=== PATIENT | female | born 1965 | race Caucasian/White ===

== ENCOUNTER 2023-01-08 06:38 | Outpatient (OUT) | payer BC, SELFPAY ==
[2023-01-08 06:50] LABS: Basophils Percent Auto 1.1 % (0.2-2.0); Eosinophils Absolute Auto 0.1 10^3/uL (0.0-0.7); Eosinophils Percent Auto 3.1 % (0.9-7.0); Hematocrit 38.6 % (36.0-48.0); Hemoglobin 12.8 g/dL (12.0-16.0); Lymphocytes Absolute Auto 1.7 10^3/uL (1.2-3.8); Lymphocytes Percent Auto 49.4 % (20.5-60.0); Mean Corpuscular HGB Conc 33.2 g/dL (29.9-35.2); Mean Corpuscular Hemoglobin 32.4 pg (26.7-34.0); Mean Corpuscular Volume 97.7 fL (81.0-99.0); Mean Platelet Volume 10.7 fL (9.5-13.5); Monocytes Absolute Auto 0.3 10^3/uL (0.3-0.8); Monocytes Percent Auto 9.1 % (1.7-12.0); Neutrophils Absolute Auto 1.3 10^3/uL (1.4-6.5); Neutrophils Percent Auto 37.3 % (43.0-75.0); Platelet Count 158 10^3/uL (150-450); Red Blood Count 3.95 10^6/uL (4.20-5.40); Red Cell Distribution Width 12.1 % (11.0-15.0); White Blood Count 3.5 10^3/uL (4.0-11.0)
[2023-01-08 08:10] LABS: Alanine Aminotransferase 19 U/L (14-59); Anion Gap 6.9; Aspartate Amino Transferase 16 U/L (15-37); BUN Creatinine Ratio 9.5; Bilirubin Total 0.3 mg/dL (0.2-1.0); Calcium 8.6 mg/dL (8.5-10.1); Carbon Dioxide 32.2 mmol/L (21.0-32.0); Chloride 103 mmol/L (98-107); Estimated GFR (African America >60 (>=60); Estimated GFR (Non-African Ame >60 (>=60); Glucose 90 mg/dL (74-106); Potassium 4.1 mmol/L (3.5-5.1); Sodium 138 mmol/L (136-145)
[2023-01-08 08:11] LABS: Albumin Globulin Ratio 1.2; Albumin Level 3.8 g/dL (3.4-5.0); Alkaline Phosphatase 49 U/L (46-116); Globulin 3.1 g/dL; Total Protein 6.9 g/dL (6.4-8.2)
[2023-01-08 08:12] LABS: Chol HDL Ratio 2.2; Cholesterol 199 mg/dL (<=200); HDL Cholesterol 91 mg/dL (40-60); Triglycerides 49 mg/dL (<=150); VLDL CHOLESTEROL 9.8 mg/dL
== END 2023-01-08 06:39 | disposition home or self-care (01) ==
LOC: LAB 06:38
PROVIDERS: PCP Internal Medicine; Visit Provider Internal Medicine
DX: Z00.00 Encounter for general adult medical examination without abnormal findings (principal)
CPT/HCPCS: 36415; 80053; 80061; 84443; 85025

== ENCOUNTER 2023-05-06 07:16 | Outpatient (OUT) | payer BC, SELFPAY ==
--- NOTE | 2023-05-06 | US_ITS ---
The [address] [address] Patient Name: EULALIA BATES MRN: [id number] date: 1965 Sex: F Assigned Patient Location: [place] Current Patient Location: [place] Accession/Order Number: [id number] Exam Date: 05/06/2023 07:35 Report Date: 05/06/2023 08:32 At the request of: IVANNA HARRIS Procedure: US right upper quadrant EXAM: US right upper quadrant HISTORY: . R53.83; Fatigue , Bilirubin in urine . COMPARISON: None. TECHNIQUE: Grayscale and color imaging was performed FINDINGS: The pancreas appears normal. The liver is normal in size. No masses are noted. Color-flow is noted in the portal and hepatic veins. The gallbladder appears normal. No stones or sludge is identified. Common bile duct is normal measuring 2 mm. Right kidney measures 11.5 x 4.8 x 4.7 cm. Color-flow is noted. No solid renal cortical masses or hydronephrosis is noted. No fluid is noted in the right upper quadrant. US/US right upper quadrant IMPRESSION: Normal ultrasound of the right upper quadrant. Electronically authenticated by: PAULETTE CISSE Date: 05/06/2023 08:32
[2023-05-06 07:36] LABS: Basophils Absolute Auto 0.1 10^3/uL (0.0-0.1); Basophils Percent Auto 1.1 % (0.2-2.0); Eosinophils Absolute Auto 0.1 10^3/uL (0.0-0.7); Eosinophils Percent Auto 1.2 % (0.9-7.0); Hematocrit 40.7 % (36.0-48.0); Hemoglobin 13.2 g/dL (12.0-16.0); Immature Granulocytes Abs Auto 0.01 10^3/uL (0.00-0.03); Immature Granulocytes Pct Auto 0.2 % (0.0-0.5); Lymphocytes Absolute Auto 1.8 10^3/uL (1.2-3.8); Lymphocytes Percent Auto 31.2 % (20.5-60.0); Mean Corpuscular HGB Conc 32.4 g/dL (29.9-35.2); Mean Corpuscular Hemoglobin 32.4 pg (26.7-34.0); Mean Platelet Volume 10.8 fL (9.5-13.5); Monocytes Absolute Auto 0.4 10^3/uL (0.3-0.8); Monocytes Percent Auto 7.8 % (1.7-12.0); Neutrophils Absolute Auto 3.3 10^3/uL (1.4-6.5); Neutrophils Percent Auto 58.5 % (43.0-75.0); Platelet Count 219 10^3/uL (150-450); Red Blood Count 4.07 10^6/uL (4.20-5.40); Red Cell Distribution Width 11.7 % (11.0-15.0); White Blood Count 5.6 10^3/uL (4.0-11.0)
[2023-05-06 08:02] LABS: Alanine Aminotransferase 29 U/L (14-59); Albumin Globulin Ratio 1.2; Albumin Level 4.1 g/dL (3.4-5.0); Alkaline Phosphatase 58 U/L (46-116); Anion Gap 10.4; Aspartate Amino Transferase 17 U/L (15-37); BUN Creatinine Ratio 17.6; Bilirubin Total 0.6 mg/dL (0.2-1.0); Calcium 8.8 mg/dL (8.5-10.1); Carbon Dioxide 32.4 mmol/L (21.0-32.0); Chloride 101 mmol/L (98-107); Estimated GFR (African America >60 (>=60); Estimated GFR (Non-African Ame >60 (>=60); Globulin 3.5 g/dL; Glucose 93 mg/dL (74-106); Potassium 3.8 mmol/L (3.5-5.1); Sodium 140 mmol/L (136-145); Total Protein 7.6 g/dL (6.4-8.2)
[2023-05-07 04:07] LABS: Haptoglobin 117 mg/dL (33-346)
== END 2023-05-06 07:17 | disposition home or self-care (01) ==
LOC: US 07:16
PROVIDERS: PCP Internal Medicine; Visit Provider Internal Medicine
DX: R82.2 Biliuria (principal); R53.83 Other fatigue; R31.21 Asymptomatic microscopic hematuria
CPT/HCPCS: 36415; 76705; 80053; 83010; 85025

== ENCOUNTER 2023-08-04 13:59 | Outpatient (OUT) | payer BC, SELFPAY ==
--- NOTE | 2023-08-04 14:04 | XR_ITS ---
The [address] [address] Patient Name: EULALIA BATES MRN: [id number] date: 1965 Sex: F Assigned Patient Location: [facility] Current Patient Location: [facility] Accession/Order Number: [id number] Exam Date: 08/04/2023 14:15 Report Date: 08/04/2023 15:21 At the request of: IVANNA HARRIS Procedure: XR thoracic spine 3V EXAMINATION: XR thoracic spine 3V HISTORY: Thoracic Back Pain M54.6 COMPARISON: No relevant comparison available. FINDINGS: BONES: Normal alignment with no acute fracture or spondylolisthesis. Mild degenerative spondylosis DISC SPACES: Normal. No significant disc height narrowing, subluxation, or endplate abnormality. PARASPINOUS: Negative. No paraspinous abnormality is seen. OTHER: Negative. XR/XR thoracic spine 3V IMPRESSION: Mild degenerative changes Electronically authenticated by: PAULETTE SILVA Date: 08/04/2023 15:21
== END 2023-08-04 14:00 | disposition home or self-care (01) ==
LOC: RAD 14:00
PROVIDERS: PCP Internal Medicine; Visit Provider Internal Medicine
DX: M54.6 Pain in thoracic spine (principal)
CPT/HCPCS: 72072

== ENCOUNTER 2024-01-11 09:00 | Outpatient (OUT) | payer BC, SELFPAY ==
--- OUTSIDE RECORDS SUMMARY | 2024-01-11 09:09 | XMS_ITS | CCD ---
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 above: Performed By: #### C BC #### [facility] [address] [place] [address] Dr. Ester Jensen MCHC (RBC) [Mass/Vol] 32.1 g/dL Normal 29.9-35.2 [facility] Comment on above: Performed By: #### C BC #### [facility] [address] [place] [address] Dr. Ester Jensen MCV (RBC) [Entitic vol] 99.7 fL Critically high 81.0-99.0 [facility] Comment on above: Performed By: #### C BC #### [facility] [address] [place] [address] Dr. Ester Jensen MONO # 0.3 103/ul Normal 0.3-0.8 [facility] Comment on above: Performed By: #### C BC #### [facility] [address] [place] [address] Dr. Ester Jensen Monocytes/100 WBC (Bld) 9.5 % Normal 1.7-12.0 [facility] Comment on above: Performed By: #### C BC #### [facility] [address] [place] [address] Dr. Ester Jensen NEUT # 1.2 103/ul Critically low 1.4-6.5 [facility] Comment on above: Performed By: #### C BC #### [facility] [address] [place] [address] Dr. Ester Jensen Neutrophils/100 WBC (Bld) 35.3 % Critically low 43.0-75.0 [facility] Comment on above: Performed By: #### C BC #### [facility] [address] [place] [address] Dr. Ester Jensen Platelet mean volume (Bld) [Entitic vol] 11.0 fL Normal 9.5-13.5 [facility] Comment on above: Performed By: #### C BC #### [facility] [address] [place] [address] Dr. Ester Jensen PLT 165 103/ul Normal 150-450 [facility] Comment on above: Performed By: #### C BC #### [facility] [address] [place] [address] Dr. Ester Jensen RBC 3.90 106/ul Critically low 4.20-5.[address] [facility] Comment on above: Performed By: #### C BC #### [facility] [address] [place] [address] Dr. Ester Jensen WBC 3.3 103/ul Critically low 4.0-11.0 [facility] Comment on above: Performed By: #### C BC #### [facility] [address] [place] [address] Dr. Ester Jensen VIT B12 AND FOLATEon 022 Cobalamin (Vitamin B12) [Mass/Vol] 1293.0 pg/mL Critically high 193.0-986.0 [facility] Comment on above: Performed By: #### C BC #### [facility] [address] [place] [address] Dr. Ester Jensen FOLATE 21.40 ng/mL Normal 8.60-58.90 [facility] Comment on above: Performed By: #### C BC #### [facility] [address] [place] [address] Dr. Ester Jensen CBC AUTO DIFFon 10-03-2021 BASO # 0.0 103/ul Normal 0.0-0.1 [facility] Comment on above: Performed By: #### C BC #### [facility] [address] [place] [address] Dr. Ester Jensen Basophils/100 WBC (Bld) 1.4 % Normal 0.2-2.0 [facility] Comment on above: Performed By: #### C BC #### [facility] [address] [place] [address] Dr. Ester Jensen EO # 0.1 103/ul Normal 0.0-0.7 [facility] Comment on above: Performed By: #### C BC #### [facility] [address] [place] [address] Dr. Ester Jensen Eosinophils/100 WBC (Bld) 2.0 % Normal 0.9-7.0 [facility] Comment on above: Performed By: #### C BC #### [facility] [address] [place] [address] Dr. Ester Jensen Erythrocyte distribution width (RBC) [Ratio] 11.9 % Normal 11.0-15.0 [facility] Comment on above: Performed By: #### C BC #### [facility] [address] [place] [address] Dr. Ester Jensen Hematocrit (Bld) [Volume fraction] 39.9 % Normal 36.0-48.0 [facility] Comment on above: Performed By: #### C BC #### [facility] [address] [place] [address] Dr. Ester Jensen Hemoglobin (Bld) [Mass/Vol] 13.0 g/dL Normal 12.0-16.0 [facility] Comment on above: Performed By: #### C BC #### [facility] [address] [place] [address] Dr. Ester Jensen IG # 0.01 10e3/ul Normal 0.00-0.03 [facility] Comment on above: Performed By: #### C BC #### [facility] [address] [place] [address] Dr. Ester Jensen IG % 0.3 % Normal 0.0-0.5 [facility] Comment on above: Performed By: #### C BC #### [facility] [address] [place] [address] Dr. Ester Jensen LYMPH # 1.1 103/ul Critically low 1.2-3.8 [facility] Comment on above: Performed By: #### C BC #### [facility] [address] [place] [address] Dr. Ester Jensen Lymphocytes/100 WBC (Bld) 37.2 % Normal 20.5-60.0 [facility] Comment on above: Performed By: #### C BC #### [facility] [address] [place] [address] Dr. Ester Jensen MANUAL DIFF REQ NO Normal [facility] Comment on above: Performed By: #### C BC #### [facility] [address] [place] [address] Dr. Ester Jensen MCH (RBC) [Entitic mass] 32.9 pg Normal 26.7-34.0 [facility] Comment on above: Performed By: #### C BC #### [facility] [address] [place] [address] Dr. Ester Jensen MCHC (RBC) [Mass/Vol] 32.6 g/dL Normal 29.9-35.2 [facility] Comment on above: Performed By: #### C BC #### [facility] [address] [place] [address] Dr. Ester Jensen MCV (RBC) [Entitic vol] 101.0 fL Critically high 81.0-99.0 [facility] Comment on above: Performed By: #### C BC #### [facility] [address] [place] [address] Dr. Ester Jensen MONO # 0.4 103/ul Normal 0.3-0.8 [facility] Comment on above: Performed By: #### C BC #### [facility] [address] [place] [address] Dr. Ester Jensen Monocytes/100 WBC (Bld) 12.5 % Critically high 1.7-12.0 [facility] Comment on above: Performed By: #### C BC #### [facility] [address] [place] [address] Dr. Ester Jensen NEUT # 1.4 103/ul Normal 1.4-6.5 [facility] Comment on above: Performed By: #### C BC #### [facility] [address] [place] [address] Dr. Ester Jensen Neutrophils/100 WBC (Bld) 46.6 % Normal 43.0-75.0 [facility] Comment on above: Performed By: #### C BC #### [facility] [address] [place] [address] Dr. Ester Jensen Platelet mean volume (Bld) [Entitic vol] 10.9 fL Normal 9.5-13.5 [facility] Comment on above: Performed By: #### C BC #### [facility] [address] [place] [address] Dr. Ester Jensen PLT 157 103/ul Normal 150-450 [facility] Comment on above: Performed By: #### C BC #### [facility] [address] [place] [address] Dr. Ester Jensen RBC 3.95 106/ul Critically low 4.20-5.[address] [facility] Comment on above: Performed By: #### C BC #### [facility] [address] [address] [address] Ester Jensen WBC 3.0 103/ul Critically low 4.0-11.0 [facility] Comment on above: Performed By: #### C BC #### [facility] [address] [address] [address] Ester Jensen LIPID PROFILEon 10-03-2021 CHOL-HDL RATIO NORM SEE BELOW Normal [facility] Comment on above: Result Comment: 3.3 - 4.4 LOW RISK 4.4 - 7.1 AVERAGE RISK 7.1 - 11.0 MODERATE RISK >11.0 HIGH RISK Performed By: #### B MP, LIPID, TSH #### [facility] [address] [address] [address] Ester Jensen Cholesterol [Mass/Vol] 201 mg/dL Critically high <=200 [facility] Comment on above: Performed By: #### B MP, LIPID, TSH #### [facility] [address] [address] [address] Ester Jensen Cholesterol in HDL [Mass/Vol] 86 mg/dL Critically high 40-60 [facility] Comment on above: Performed By: #### B MP, LIPID, TSH #### [facility] [address] [address] [address] Ester Jensen Cholesterol in LDL [Mass/Vol] 106.6 mg/dL Normal [facility] Comment on above: Performed By: #### B MP, LIPID, TSH #### [facility] [address] [address] [address] Ester Jensen Cholesterol.total/Ch olesterol in HDL [Mass ratio] 2.3 {ratio} Normal [facility] Comment on above: Performed By: #### B MP, LIPID, TSH #### [facility] [address] [address] [address] Ester Jensen HDL NORMAL > or = 60 mg/dl - LOW CARDIOVASCULAR RISK <40 mg/dl - HIGH CARDIOVASCULAR RISK Normal [facility] Comment on above: Performed By: #### B MP, LIPID, TSH #### [facility] [address] [address] [address] Ester Jensen LDL CALC NORMAL SEE BELOW Normal [facility] Comment on above: Result Comment: <100 mg/dl OPTIMAL 100 - 129 mg/dl NEAR OR ABOVE OPTIMAL 130 - 159 mg/dl BORDERLINE HIGH 160 - 189 mg/dl HIGH >190 mg/dl VERY HIGH Performed By: #### B MP, LIPID, TSH #### [facility] [address] [address] [address] Ester Jensen Triglyceride [Mass/Vol] 42 mg/dL Normal <=150 [facility] Comment on above: Performed By: #### B MP, LIPID, TSH #### [facility] [address] [place] [address] Dr. Ester Jensen VLDL CALC 8.4 mg/dL Normal [facility] Comment on above: Performed By: #### B MP, LIPID, TSH #### [facility] [address] [place] [address] Dr. Ester Jensen PROF CHEM 8 (BAS METB)on Anion gap [Moles/Vol] 10.5 mmol/L Normal [facility] Comment on above: Performed By: #### B MP, LIPID, TSH #### [facility] [address] [place] [address] Dr. Ester Jensen Calcium [Mass/Vol] 8.5 mg/dL Normal 8.5-10.1 [facility] Comment on above: Performed By: #### B MP, LIPID, TSH #### [facility] [address] [place] [address] Dr. Ester Jensen Chloride [Moles/Vol] 102 mmol/L Normal 98-107 [facility] Comment on above: Performed By: #### B MP, LIPID, TSH #### [facility] [address] [address] [address] Ester Jensen CO2 [Moles/Vol] 29.5 mmol/L Normal 21.0-32.0 [facility] Comment on above: Performed By: #### B MP, LIPID, TSH #### [facility] [address] [address] [address] Ester Jensen Creatinine [Mass/Vol] 0.82 mg/dL Normal 0.55-1.02 [facility] Comment on above: Performed By: #### B MP, LIPID, TSH #### [facility] [address] [address] [address] Ester Jensen EGFR-AF TRINIDADIAN >60 Normal >=60 [facility] Comment on above: Performed By: #### B MP, LIPID, TSH #### [facility] [address] [address] [address] Ester Jensen EGFR-NON AF TRINIDADIAN >60 Normal >=60 [facility] Comment on above: Performed By: #### B MP, LIPID, TSH #### [facility] [address] [address] [address] Ester Jensen Glucose [Mass/Vol] 92 mg/dL Normal 74-106 [facility] Comment on above: Performed By: #### B MP, LIPID, TSH #### [facility] [address] [address] [address] Ester Jensen Potassium [Moles/Vol] 4.0 mmol/L Normal 3.5-5.1 [facility] Comment on above: Performed By: #### B MP, LIPID, TSH #### [facility] [address] [address] [address] Ester Jensen Sodium [Moles/Vol] 138 mmol/L Normal 136-145 [facility] Comment on above: Performed By: #### B MP, LIPID, TSH #### [facility] [address] [address] [address] Ester Jensen Urea nitrogen [Mass/Vol] 11.0 mg/dL Normal 7.0-18.0 [facility] Comment on above: Performed By: #### B MP, LIPID, TSH #### [facility] [address] [address] [address] Ester Jensen Urea nitrogen/Creatinine [Mass ratio] 13.4 mg/mg Normal [facility] Comment on above: Performed By: #### B MP, LIPID, TSH #### [facility] [address] [place] [address] Dr. Ester Jensen TSHon 10-03-2021 TSH 1.803 uIU/mL Normal 0.358-3.740 [facility] Comment on above: Performed By: #### B MP, LIPID, TSH #### [facility] [address] [place] [address] Dr. Ester Jensen TSH RANGE SEE BELOW Normal [facility] Comment on above: Result Comment: <0.3 4 UIU/ml HYPERTHYROID 0.34-5.60 UIU/ml EUTHYROID >5.60 UIU/ml HYPOTHYROID Performed By: #### B MP, LIPID, TSH #### [facility] [address] [place] [address] Dr. Ester Jnesen CBC AUTO DIFFon 07-28-2021 BASO # 0.0 103/ul Normal 0.0-0.1 [facility] Comment on above: Performed By: #### C BC #### [facility] [address] [place] [address] Dr. Ester Jensen Basophils/100 WBC (Bld) 1.1 % Normal 0.2-2.0 [facility] Comment on above: Performed By: #### C BC #### [facility] [address] [place] [address] Dr. Ester Jensen EO # 0.1 103/ul Normal 0.0-0.7 [facility] Comment on above: Performed By: #### C BC #### [facility] [address] [place] [address] Dr. Ester Jensen Eosinophils/100 WBC (Bld) 2.5 % Normal 0.9-7.0 [facility] Comment on above: Performed By: #### C BC #### [facility] [address] [place] [address] Dr. Ester Jensen Erythrocyte distribution width (RBC) [Ratio] 12.2 % Normal 11.0-15.0 [facility] Comment on above: Performed By: #### C BC #### [facility] [address] [place] [address] Dr. Ester Jensen Hematocrit (Bld) [Volume fraction] 38.7 % Normal 36.0-48.0 [facility] Comment on above: Performed By: #### C BC #### [facility] [address] [place] [address] Dr. Ester Jensen Hemoglobin (Bld) [Mass/Vol] 12.6 g/dL Normal 12.0-16.0 [facility] Comment on above: Performed By: #### C BC #### [facility] [address] [place] [address] Dr. Ester Jensen IG # 0.01 10e3/ul Normal 0.00-0.03 [facility] Comment on above: Performed By: #### C BC #### [facility] [address] [place] [address] Dr. Ester Jensen IG % 0.3 % Normal 0.0-0.5 [facility] Comment on above: Performed By: #### C BC #### [facility] [address] [place] [address] Dr. Ester Jensen LYMPH # 1.6 103/ul Normal 1.2-3.8 [facility] Comment on above: Performed By: #### C BC #### [facility] [address] [place] [address] Dr. Ester Jensen Lymphocytes/100 WBC (Bld) 43.6 % Normal 20.5-60.0 [facility] Comment on above: Performed By: #### C BC #### [facility] [address] [place] [address] Dr. Ester Jensen MANUAL DIFF REQ NO Normal [facility] Comment on above: Performed By: #### C BC #### [facility] [address] [place] [address] Dr. Ester Jensen MCH (RBC) [Entitic mass] 32.8 pg Normal 26.7-34.0 [facility] Comment on above: Performed By: #### C BC #### [facility] [address] [place] [address] Dr. Ester Jensen MCHC (RBC) [Mass/Vol] 32.6 g/dL Normal 29.9-35.2 [facility] Comment on above: Performed By: #### C BC #### [facility] [address] [place] [address] Dr. Ester Jensen MCV (RBC) [Entitic vol] 100.8 fL Critically high 81.0-99.0 [facility] Comment on above: Performed By: #### C BC #### [facility] [address] [place] [address] Dr. Ester Jensen MONO # 0.3 103/ul Normal 0.3-0.8 [facility] Comment on above: Performed By: #### C BC #### [facility] [address] [place] [address] Dr. Ester Jensen Monocytes/100 WBC (Bld) 9.3 % Normal 1.7-12.0 [facility] Comment on above: Performed By: #### C BC #### [facility] [address] [place] [address] Dr. Ester Jensen NEUT # 1.6 103/ul Normal 1.4-6.5 [facility] Comment on above: Performed By: #### C BC #### [facility] [address] [place] [address] Dr. Ester Jensen Neutrophils/100 WBC (Bld) 43.2 % Normal 43.0-75.0 [facility] Comment on above: Performed By: #### C BC #### [facility] [address] [place] [address] Dr. Ester Jensen Platelet mean volume (Bld) [Entitic vol] 11.3 fL Normal 9.5-13.5 [facility] Comment on above: Performed By: #### C BC #### [facility] [address] [place] [address] Dr. Ester Jensen PLT 153 103/ul Normal 150-450 [facility] Comment on above: Performed By: #### C BC #### [facility] [address] [place] [address] Dr. Ester Jensen RBC 3.84 106/ul Critically low 4.20-5.[address] [facility] Comment on above: Performed By: #### C BC #### [facility] [address] [place], [place] [address] Dr. Ester Jensen WBC 3.7 103/ul Critically low 4.0-11.0 [facility] Comment on above: Performed By: #### C BC #### [facility] [address] [place], [place] [address] Dr. Ester Jensen TRANSGLUTAMINASE IGAon 05-10 t-Transglutaminase (tTG) IgA <2 Normal 0-3 [facility] Comment on above: Result Comment: Nega tive 0 - 3 Weak Positive 4 - 10 Positive >10 . Tissue Transglutaminase (tTG) has been identified as the endomysial antigen. Studies have demonstr- ated that endomysial IgA antibodies have over 99% specificity for gluten sensitive enteropathy. Performed By: #### T RANIGA #### [facility] [address] [address] [address] Ester Jensen TRANSGLUTAMINASE IGGon 05-10 t-Transglutaminase (tTG) IgG 3 U/mL Normal 0-5 [facility] Comment on above: Result Comment: Nega tive 0 - 5 Weak Positive 6 - 9 Positive >9 Performed By: #### C BC #### [facility] [address] [place], [place] [address] Dr. Ester Jensen NM HEPATOBILIARY SCAN W EFon 04-18-2021 NM HEPATOBILIARY SCAN W EF EXAMINATION: NM HEPATOBILIARY SCAN W EF HISTORY: Right upper quadrant pain COMPARISON: No relevant comparison available. TECHNIQUE: Radionuclide hepatobiliary imaging was performed after intravenous injection of 5.0 mCi technetium 99m mebrofenin with sequential acquisitions every 1 minute for one hour. Hepatobiliary imaging with gallbladder ejection fraction analysis was then performed with sequential imaging every 1 minute for 60 minutes. 8 ounces of by mouth Ensure plus FINDINGS: LIVER: Normal, prompt and uniform radiotracer uptake and clearing. BILIARY DUCTS: Normal radioisotopic biliary excretion. GALLBLADDER: Normal with no evidence of cystic duct obstruction. INTESTINE: Normal with no evidence of common biliary ductal obstruction. EJECTION FRACTION: % within 60 minutes. (Normal EF > 38%). OTHER: Negative. IMPRESSION: Normal hepatobiliary scan and pharmacologic ejection fraction Electronically authenticated by: PAULETTE SILVA Date: 2021-04-18 17:13 Normal [facility] CBC W MANUAL DIFFon 04-08-20 21 ATYPICAL LYMPH # 0.08 103/ul Normal [facility] Comment on above: Performed By: #### C VEL #### [facility] [address] [place] [address] Dr. Ester Jensen ATYPICAL LYMPH % 3 % Normal [facility] Comment on above: Performed By: #### C BCMAN #### [facility] [address] [address] [address] Ester Jensen BAND # Normal 0.0-0.3 [facility] Comment on above: Performed By: #### C VEL #### [facility] [address] [place] [address] Dr. Ester Jensen BAND % Normal 0-5 [facility] Comment on above: Performed By: #### C VEL #### [facility] [address] [address] [address] Ester Jensen BASOM # 0.00 103/ul Normal 0.00-0.10 [facility] Comment on above: Performed By: #### C VEL #### [facility] [address] [address] [address] Ester Jensen BASOM % 0.0 % Critically low 0.2-2.0 [facility] Comment on above: Performed By: #### C VEL #### [facility] [address] [address] [address] Ester Jensen BLAST # Normal [facility] Comment on above: Performed By: #### C VEL #### [facility] [address] [address] [address] Ester Jensen BLAST % Normal [facility] Comment on above: Performed By: #### C VEL #### [facility] [address] [place] [address] Dr. Ester Jensen CORRECTED WBC Normal 4.0-11.0 [facility] Comment on above: Performed By: #### C VEL #### [facility] [address] [place] [address] Dr. Ester Jensen EOS # 0.05 103/ul Normal 0.00-0.70 [facility] Comment on above: Performed By: #### C VEL #### [facility] [address] [place] [address] Dr. Ester Jensen EOS% 2.0 % Normal 0.9-7.0 [facility] Comment on above: Performed By: #### C VEL #### [facility] [address] [place] [address] Dr. Ester Jensen HCT 40.2 % Normal 36.0-48.0 [facility] Comment on above: Performed By: #### C VEL #### [facility] [address] [place] [address] Dr. Ester Jensen HGB 13.0 g/dl Normal 12.0-16.0 [facility] Comment on above: Performed By: #### C VLE #### [facility] [address] [place] [address] Dr. Ester Jensen LYMPHM # 1.20 103/ul Normal 1.20-3.80 [facility] Comment on above: Performed By: #### C VEL #### [facility] [address] [place] [address] Dr. Ester Jnesen LYMPHM% 46.0 % Normal 20.5-60.0 [facility] Comment on above: Performed By: #### C VEL #### [facility] [address] [place] [address] Dr. Ester Jensen MCH 31.8 pg Normal 26.7-34.0 [facility] Comment on above: Performed By: #### C VEL #### [facility] [address] [place] [address] Dr. Ester Jensen MCHC 32.3 g/dl Normal 29.9-35.2 [facility] Comment on above: Performed By: #### C VEL #### [facility] [address] [place] [address] Dr. Ester Jensen MCV 98.3 fL Normal 81.0-99.0 [facility] Comment on above: Performed By: #### C BCMAN #### [facility] [address] [place] [address] Dr. Ester Jensen METAMYELOCYTE # Normal [facility] Comment on above: Performed By: #### C BCBRENDAN #### [facility] [address] [place] [address] Dr. Ester Jensen METAMYELOCYTE % Normal [facility] Comment on above: Performed By: #### C BCMAN #### [facility] [address] [place] [address] Dr. Ester Jensen MONOM# 0.31 103/ul Normal 0.30-0.80 [facility] Comment on above: Performed By: #### C VEL #### [facility] [address] [place] [address] Dr. Ester Jensen MONOM% 12.0 % Normal 1.7-12.0 [facility] Comment on above: Performed By: #### C VEL #### [facility] [address] [place] [address] Dr. Ester Jensen MPV 11.2 fL Normal 9.5-13.5 [facility] Comment on above: Performed By: #### C VEL #### [facility] [address] [place] [address] Dr. Ester Jensen MYELOCYTE # Normal [facility] Comment on above: Performed By: #### C VEL #### [facility] [address] [place] [address] Dr. Ester Jensen MYELOCYTE % Normal [facility] Comment on above: Performed By: #### C BCBRENDAN #### [facility] [address] [place] [address] Dr. Ester Jensen NRBC Normal [facility] Comment on above: Performed By: #### C BCBRENDAN #### [facility] [address] [place] [address] Dr. Ester Jensen PLT 161 103/ul Normal 150-450 [facility] Comment on above: Performed By: #### C BCBRENDAN #### [facility] [address] [place], [place] [address] Dr. Ester Jensen RBC 4.09 106/ul Critically low 4.20-5.[address] [facility] Comment on above: Performed By: #### C VEL #### [facility] [address] [place], [place] [address] Dr. Ester Jensen RDW 11.9 % Normal 11.0-15.0 [facility] Comment on above: Performed By: #### C VEL #### [facility] [address] [place], [place] [address] Dr. Ester Jensen SEG # 0.96 103/ul Critically low 1.40-6.[address] [facility] Comment on above: Performed By: #### C VEL #### [facility] [address] [address] [address] Ester Jensen SEG % 37.0 % Critically low 43.0-75.0 [facility] Comment on above: Performed By: #### C VEL #### [facility] [id number] Ester Jensen WBC 2.6 103/ul Critically low 4.0-11.0 [facility] Comment on above: Performed By: #### C VEL #### [facility] [id number] Ester Jensen PERIPHERAL SMEARon Pathologist Cyto stain Nom (Cvx/Vag) [ID] DR. USHA VALLECILLO Normal [facility] Comment on above: Result Comment: REVI EW OF SMEAR REVEALS NORMAL RBCS AND PLATELETS. THERE IS NEUTROPENIA WITH OCCASIONAL NEUTROPHILS WITH MONOLOBULATED NEUCLEI WITH HYPOGRANUALARITY. NO IMMATUE BLASTS ARE SEEN ARE FOUND TO BE REACTIVE. NEUTROPENIA CAN BE SEEN IN THE SETTING OF DRUG MEDATED INFECTIOUIS PROCESS CYCLE NEUTROPENIA OR AN IMMUNE MEDIATED PROCESS SUCH IN COLLEGEN UNICELLULAR DISORDERS. CLINICAL CORRELATION IS RECOMMENDED CPT 89869 Performed By: #### P ERSMR #### [facility] [address] [address] [address] Ester Jensen VITAMIN B12on 04-08-2021 Cobalamin (Vitamin B12) [Mass/Vol] 448.0 pg/mL Normal 239.0-931.0 [facility] Comment on above: Performed By: #### V ITB12 #### [facility] [id number] Ester Jensen Vital Signs Date Time Vital Sign Value Performing Clinician Facility 01-11-2024 08:37-0400 Body height 170.18 cm [facility] 01-11-2024 08:37-0400 Body mass index (BMI) [Ratio] 19.8 kg/m2 [facility] 01-11-2024 08:37-0400 Body weight 57.37 kg [facility] 01-11-2024 08:37-0400 Diastolic blood pressure 71 mm[Hg] [facility] 01-11-2024 08:37-0400 Heart rate 70 /min [facility] 01-11-2024 08:37-0400 Respiratory rate 12 /min [facility] 01-11-2024 08:37-0400 Systolic blood pressure 100 mm[Hg] [facility] 05-07-2023 10:14-0500 Body height 170.18 cm DO Paulo Ball Work Phone: [facility] 05-07-2023 10:14-0500 Body weight 56.69 kg DO Paulo Ball Work Phone: [facility] 04-21-2023 11:15-0500 Body height 171.45 cm Paulo Ball Other [facility] Other 04-21-2023 11:15-0500 Body mass index (BMI) [Ratio] 19.75 kg/m2 Paulo Ball Other [facility] Other 04-21-2023 11:15-0500 Body weight 58.06 kg Paulo Ball Other [facility] Other 04-21-2023 11:15-0500 Diastolic blood pressure 89 mm[Hg] Paulo Ball Other [facility] Other 04-21-2023 11:15-0500 Respiratory rate 12 /min Paulo Ball Other [facility] Other 04-21-2023 11:15-0500 Systolic blood pressure 145 mm[Hg] Paulo Ball Other [facility] Other 01-07-2023 11:30-0400 Body height 171.45 cm Paulo Ball Other [facility] Other 01-07-2023 11:30-0400 Body mass index (BMI) [Ratio] 19.44 kg/m2 Paulo Ball Other [facility] Other 01-07-2023 11:30-0400 Body weight 57.15 kg Paulo Ball Other [facility] Other 01-07-2023 11:30-0400 Diastolic blood pressure 78 mm[Hg] Paulo Ball Other [facility] Other 01-07-2023 11:30-0400 Systolic blood pressure 115 mm[Hg] Paulo Ball Other [facility] Other 05-04-2022 14:43-0500 Body height 170.18 cm DO Paulo Ball Work Phone: [facility] 05-04-2022 14:43-0500 Body weight 57.6 kg DO Paulo Ball Work Phone: [facility] 04-13-2022 11:30-0500 Body height 171.45 cm Rafi Amador Other [facility] Other 04-13-2022 11:30-0500 Body mass index (BMI) [Ratio] 19.75 kg/m2 Rafi Amador Other [facility] Other 04-13-2022 11:30-0500 Body weight 58.06 kg Rafi Amador Other [facility] Other 04-13-2022 11:30-0500 Diastolic blood pressure 80 mm[Hg] Rafi Amador Other [facility] Other 04-13-2022 11:30-0500 Systolic blood pressure 114 mm[Hg] Rafi Amador Other [facility] Other 11-10-2021 09:31-0400 Body height 167.6 cm Carol Wills MD Work Phone: [facility] 11-10-2021 09:31-0400 Body temperature 97.59 [degF] Carol Wills MD Work Phone: [facility] 11-10-2021 09:31-0400 Body weight 56.52 kg Carol Wills MD Work Phone: [facility] 11-10-2021 09:31-0400 Diastolic blood pressure 76 mm[Hg] Carol Wills MD Work Phone: [facility] 11-10-2021 09:31-0400 Heart rate 77 /min Carol Wills MD Work Phone: [facility] 11-10-2021 09:31-0400 Respiratory rate 16 /min Carol Wills MD Work Phone: [facility] 11-10-2021 09:31-0400 SaO2% (BldA) [Mass fraction] 100 % Carol Wills MD Work Phone: [facility] 11-10-2021 09:31-0400 Systolic blood pressure 117 mm[Hg] Carol Wills MD Work Phone: [facility] 04-22-2021 13:45-0500 Body height 171.45 cm Rafi Amador Other [facility] Other 04-22-2021 13:45-0500 Body mass index (BMI) [Ratio] 19.6 kg/m2 Rafi Amador Other [facility] Other 04-22-2021 13:45-0500 Body weight 57.61 kg Rafi Amador Other [facility] Other Encounters Encounter Date Encounter Type Care Provider Facility Start: 01-11-2024 End: 01-11-[address] [facility] Work Phone: Start: 01-11-2024 End: 01-11-2024 Encounter for general adult medical examination without abnormal findings [facility] Start: 01-11-2024 End: 01-11-2024 Patient encounter procedure [facility] Work Phone: Start: 12-06-2023 End: 12-06-2023 ambulatory SHELBY CRUZ Not Available Start: 08-20-2023 End: 08-20-2023 ambulatory RISHI MC Not Available Start: 08-03-2023 End: 08-03-2023 ambulatory RISHI [facility] Not Available Start: 06-28-2023 End: 06-28-2023 ambulatory PALMA DAMON Not Available Start: 06-15-2023 End: 06-15-2023 ambulatory Paulo Lawrence Other [facility] Other Start: 06-15-2023 Office outpatient visit 15 minutes Paulo Lawrence [facility] Start: 06-04-2023 End: 06-04-2023 ambulatory PALMA DAMON Not Available Start: 06-02-2023 End: 06-02-2023 ambulatory PALMA DAMON Not Available Start: 05-10-2023 End: 05-10-2023 ambulatory Paulo Lawrence Other [facility] Other Start: 05-10-2023 Telephone encounter Paulo Ball [facility] Start: 05-07-2023 End: 05-07-2023 ambulatory Paulo Lawrence Facility:[facility] Start: 05-07-2023 End: 05-07-2023 ambulatory DO Paulo Lawrence Work Phone: [facility] Work Phone: Start: 05-07-2023 End: 05-07-2023 Patient encounter procedure DO Paulo Lawrence Work Phone: [facility] [place] Work Phone: Start: 05-05-2023 End: 05-05-2023 ambulatory Paulo Lawrence Other [facility] Other Start: 05-05-2023 Office outpatient visit 15 minutes Paulo Lawrence [facility] Start: 04-30-2023 End: 04-30-2023 ambulatory PALMA DAMON Not Available Start: 04-29-2023 End: 04-29-2023 ambulatory Paulo Lawrence Other [facility] Other Start: 04-29-2023 Nursing evaluation o f patient and report Paulo Lawrence [facility] Start: 04-21-2023 End: 04-21-2023 ambulatory Paulo Lawrence Other [facility] Other Start: 04-21-2023 Office outpatient visit 15 minutes Paulo Lawrence [facility] Start: 04-21-2023 Telephone encounter Paulo Lawrence [facility] Start: 03-11-2023 End: 03-11-2023 ambulatory Paulo Ball Other [facility] Other Start: 03-11-2023 Telephone encounter Paulo Lawrence [facility] Start: 02-23-2023 End: 02-23-2023 ambulatory Paulo Howard Other [facility] Other Start: 02-23-2023 Telephone encounter Paulo Lawrence [facility] Start: 01-08-2023 End: 01-08-2023 ambulatory Paulo Ball Other [facility] Other Start: 01-08-2023 Telephone encounter Paulo Lawrence JACLYN [facility] Start: 01-07-2023 End: 01-07-2023 ambulatory Paulo Lawrence Other [facility] Other Start: 01-07-2023 Encounter for genera l adult medical examination without abnormal findings Paulo Lawrence [facility] Start: 01-07-2023 Periodic preventive med est patient 40-64yrs Paulo Lawrnece [facility] Start: 11-19-2022 End: 11-19-2022 ambulatory PAULO LAWRENCE Facility:[facility] Start: 08-04-2022 End: 08-04-2022 ambulatory Paulo Lawrence Other [facility] Other Start: 08-04-2022 Telephone encounter Paulo Lawrence JACLYN Claribel [facility] Start: 05-04-2022 End: 05-04-2022 ambulatory DO Paulo Lawrence Work Phone: [facility] Work Phone: Start: 05-04-2022 End: 05-04-2022 Patient encounter procedure DO Paulo Lawrence Work Phone: [facility] [place] Start: 04-13-2022 End: 04-13-2022 ambulatory Rafi Amador Other [facility] Other Start: 04-13-2022 Office outpatient visit 15 minutes Rafi Amador [facility] Start: 01-15-2022 End: 01-16-[address] PAULO LAWRENCE Facility: Start: 11-10-2021 End: 11-10-2021 ambulatory Carol Wills MD Work Phone: Hematology/Oncology Comment on above: Malignant neoplasm o f upper-outer quadrant of right breast in female, estrogen receptor positive (HCC) (Primary Dx); Ductal carcinoma in situ (DCIS) of left breast Start: 11-10-2021 End: 11-10-2021 Patient encounter procedure aCrol Wills MD Work Phone: [place] Start: 10-08-2021 Encounter for genera l adult medical examination without abnormal findings DR PAULO LAWRENCE [facility] Start: 10-03-2021 End: 10-04-[address] PAULO LAWRENCE Facility:[facility] Start: 10-03-2021 End: 10-04-2021 Encounter for general adult medical examination without abnormal findings DR PAULO LAWRENCE Facility:[facility] Start: 07-31-2021 Adult health examination Paulo Lawrence Other [facility] Other Start: 07-28-2021 End: 07-29-[address] PAULO LAWRENCE Facility:[facility] Start: 2021 End: 05-10-[address] Tessie AMADOR Facility:[facility] Start: 05-08-2021 End: 05-08-2021 ambulatory Rafi Amador Other [facility] Other Start: 05-08-2021 Telephone encounter Rafi lópez [facility] Start: 04-22-2021 End: 04-22-2021 ambulatory Rafi Amador Other [facility] Other Start: 04-22-2021 Office outpatient visit 15 minutes Rafi Amador [facility] Start: 04-18-2021 End: 04-19-[address] PAULO LAWRENCE Facility:[facility] Start: 04-08-2021 End: 04-09-[address] PAULO LAWRENCE Facility:[facility] Start: 09-16-2018 End: 09-17-2018 Patient encounter procedure DEFAULT PHYSICIAN Facility:[facility] Procedures Date Procedure Procedure Detail Performing Clinician Start: 05-07-2023 MRI of bilateral loretta asts with contrast DO Paulo Lawrence Work Phone: Start: 05-04-2022 MRI of bilateral loretta asts with contrast DO Paulo Lawrence Work Phone: Start: 11-10-2021 Adult depression screening assessment Carol Wills MD Work Phone: Start: 04-26-2018 Screening for malign ant neoplasm of colon Paulo Lawrence Other Plan of Treatment Date Care Activity Detail Author Start: 11-09-2023 DIABETES SCREEN DIABETES SCREEN [facility] Start: 11-10-2022 Adult depression screening assessment DEPRESSION SCREENING [facility] Start: 08-17-2021 COVID-19 VACCINE (4 - Booster for Pfizer series) COVID-19 VACCINE (4 - Booster for Pfizer series) [facility] Start: 2010 COLOGUARD (FIT-DNA) COLOGUARD (FIT-D NA) [facility] Start: 2010 Colonoscopy COLONOSCOPY [facility] Start: 2010 COLORECTAL CANCER SCREENING COLORECTAL CANCER SCREENING [facility] Start: [address] COLONOGRAPHY [facility] Start: 2010 FECAL OCCULT BLOOD FECAL OCCULT BLOO D [facility] Start: 2010 LIPID SCREEN LIPID SCREEN [facility] Start: 2010 SIGMOIDOSCOPY SIGMOIDOSCOPY [facility] Start: 2005 Mammography MAMMOGRAM [facility] Start: 1995 HPV TESTING HPV TESTING [facility] Start: 1986 PAP TESTING PAP TESTING [facility] Start: 1984 Urine microalbumin profile DTAP,TDAP,TD (1 - Tdap) [facility] Start: 1983 HEPATITIS C SCREENING HEPATITIS C SC LUISNING [facility] Start: 1983 HIV SCREENING HIV SCREENING [facility] Start: 1971 PNEUMOCOCCAL (1 - PCV) PNEUMOCOCCAL (1 - PCV) [facility] metabo lic 2000 panel - Serum or Plasma [facility] End: 12-10-2022 Diagnostic mammography computer-aided detcj bi RADHA DIAGNOSTIC BILAT Radiology Routine Malignant neoplasm of upper-outer quadrant of right breast in female, estrogen receptor positive (HCC) 1 Occurrences starting 11/10/2021 until 12/10/2022 [facility] Work Phone: Comment on above: 1 Occurrences starti ng 11/10/2021 until 12/10/2022 End: 12-10-2022 Mri breast without&with contrast w/cad bilateral MRI BREAST WO/W IVCON BILAT Radiology Routine Malignant neoplasm of upper-outer quadrant of right breast in female, estrogen receptor positive (HCC) 1 Occurrences starting 11/10/2021 until 12/10/2022 [facility] Work Phone: Comment on above: 1 Occurrences starti ng 11/10/2021 until 12/10/2022 [facility] Immunizations Immunization Date Immunization Notes Care Provider Odin velasco 05-10-2022 COVID-19 Pfizer (Pediatric) Paulo Lawrence Other [facility] 04-19-2021 COVID-19 mRNA, Comirnaty (Pfizer) DO Paulo Lawrence Work Phone: [facility] 03-09-2021 influenza virus vaccine, split virus (incl. purified surface antigen) Paulo Lawrence Other [facility] Other 03-09-2021 influenza virus vaccine, unspecified formulation [facility] 08-21-2020 COVID-19 vaccine, ag e 12+ yr (PFIZER-BIONTECH - PURPLE TOP) Carol Wills MD Work Phone: [facility] 07-31-2020 COVID-19 vaccine, ag e 12+ yr (PFIZER-BIONTECH - PURPLE TOP) Carol Wills MD Work Phone: [facility] 03-08-2020 influenza virus vaccine, split virus (incl. purified surface antigen) Paulo Lawrence Other [facility] Other 03-08-2020 influenza virus vaccine, unspecified formulation [facility] 03-08-2020 influenza, injectabl e, quadrivalent, preservative free Carol Wills MD Work Phone: [facility] 08-01-2019 zoster vaccine recombinant Carol Wills MD Work Phone: [facility] 08-01-2019 zoster vaccine, live True Lawrence Other [facility] 05-03-2019 zoster vaccine recombinant Carol Wills MD Work Phone: [facility] 02-25-2019 influenza, injectabl e, quadrivalent, preservative free Carol Wills MD Work Phone: [facility] 03-17-2018 influenza, injectabl e, quadrivalent, preservative free Carol Wills MD Work Phone: [facility] 02-07-2018 influenza, seasonal, injectable, preservative free Carol Wills MD Work Phone: [facility] 09-03-2017 seasonal influenza, intradermal, preservative free Carol Wills MD Work Phone: [facility] 02-22-2017 influenza virus vaccine, split virus (incl. purified surface antigen) Paulo Lawrence Other [facility] Other 02-22-2017 influenza virus vaccine, unspecified formulation [facility] 02-22-2017 influenza, injectabl e, quadrivalent, preservative free Carol Wills MD Work Phone: [facility] 02-06-2016 influenza virus vaccine, split virus (incl. purified surface antigen) Paulo Lawrence Other [facility] Other 02-06-2016 influenza virus vaccine, unspecified formulation [facility] 02-06-2016 influenza, injectabl e, quadrivalent, preservative free Carol Wills MD Work Phone: [facility] 08-27-2015 seasonal influenza, intradermal, preservative free Carol Wills MD Work Phone: [facility] 03-03-2015 influenza, injectabl e, quadrivalent, preservative free Carol Wills MD Work Phone: [facility] 03-27-2014 influenza virus vaccine, split virus (incl. purified surface antigen) Carol Wills MD Work Phone: [facility] 03-03-2014 tetanus and diphther ia toxoids, adsorbed, preservative free, for adult use (5 Lf of tetanus toxoid and 2 Lf of diphtheria toxoid) Paulo Lawrence Other [facility] 03-19-2013 tetanus and diphther ia toxoids, adsorbed, preservative free, for adult use (5 Lf of tetanus toxoid and 2 Lf of diphtheria toxoid) Paulo Howard Other [facility] 03-20-2008 influenza, seasonal, injectable, preservative free Carol Wills MD Work Phone: [facility] 04-16-2007 influenza, seasonal, injectable Carol Wills MD Work Phone: [facility] Payers Date Payer Category Payer Self-pay [id number] 2020 Unknown [employer] PPO [id number] 2020-Present [phone] [id number] [place] [address] PPO [id number] 1965 Unknown [id number] [id number]. 2.647 1965 Unknown [id number] 2.16.840.1.384550.3.579. 2.593 1965 Unknown [id number] 2.16.840.1.579531.3.579. 2.593 1965 Unknown [id number] 2.16.840.1.450277.3.579. 2.593 1965 Unknown [id number] 2.16.840.1.958460.3.579. 2.593 1965 Unknown [id number] 2.16.840.1.801123.3.579. 2.593 1965 Unknown [id number] 2.16.840.1.999441.3.579. 2.593 1965 Unknown [id number] 2.16.840.1.244065.3.579. 2.1259 1965 Unknown [id number] 2.16.840.1.740509.3.579. 2.1259 1965 Unknown [id number] 2.16.840.1.713459.3.579. 2.1259 1965 Unknown [id number] 2.16.840.1.397842.3.579. 2.1259 1965 Unknown [id number] 2.16.840.1.246338.3.579. 2.9 1965 Unknown [id number] 2.16.840.1.890371.3.579. 2.1259 1965 Unknown [id number] 2.16.840.1.538456.3.579. 2.9 1965 Unknown [id number] 2.16.840.1.358375.3.579. 2.1259 1959 [facility] [id number] Private Health Insurance [employer] [id number] Private Health Insurance [facility] [id number] Unknown Unknown [place] BC/BS NICKY [id number] Unknown [id number] [id number]. 2.531 Social History Date Type Detail Facility Start: 09-16-2012 End: 06-15-2023 Tobacco smoking status NHIS Never smoked tobacco [facility] Start: 09-16-2012 Tobacco use and exposure Smokeless tobacco non-user [facility] Start: 11-10-2021 Alcohol intake Current non-dr [employer] developer of alcohol (finding) [facility] Start: 1965 Sex Assigned At Female C [facility] Start: 10-31-2021 End: 11-10-2021 Exposure to SARS-CoV-2 (event) Not sure [facility] Sex Assigned At Sex Assigned At [facility] Other Clinical Notes 04-22-2021 to 06-15-2023 Note Date & Type Note Facility 06-15-2023 Evaluation note Encounter Date Diagnosis Assessment Notes May, Acute bronchitis due to other specified organisms (ICD-10 - J20.8) Instructed to use Robitussin or Mucinex for cough, saline or Flonase NS for congestion, Tylenol for pain and fever. Instructed to use Robitussin or Mucinex for cough, saline or Flonase NS for congestion, Tylenol for pain and fever. [facility] Other 12-06-2023 Evaluation note* Encounter Date Diagnosis Assessment Notes Treatment Notes Treatment Clinical Notes Apr, Acute bronchitis due to other specified organisms (ICD-10 - J20.8) Instructed to use Robitussin or Mucinex for cough, saline or Flonase NS for congestion, Tylenol for pain and fever. Instructed to use Robitussin or Mucinex for cough, saline or Flonase NS for congestion, Tylenol for pain and fever. [facility] Other 11-30-2023 Evaluation note* Encounter Date Diagnosis Assessment Notes Treatment Notes Treatment Clinical Notes Mar, Dysuria (ICD-10 - R30.0) [facility] Other 11-22-2023 Evaluation note* Encounter Date Diagnosis Assessment Notes Treatment Notes Treatment Clinical Notes Mar, Dysuria (ICD-10 - R30.0) Push fluids and finish antibiotics Drop off urine sample next week. Mar, Tongue coating (ICD-10 - K14.3) No isolated lesions on the tongue or buccal mucosa. No risk factors for oral cancer. Thin yellow coating down the center of her tongue Reassured, instructed to push water and brush tongue [facility] Other 10-12-2023 Evaluation note* Encounter Date Diagnosis Assessment Notes Treatment Notes Treatment Clinical Notes Feb, Autoimmune thyroiditis (ICD-10 - E06.3) [facility] Other 08-11-2023 Evaluation note* Encounter Date Diagnosis Assessment Notes Treatment Notes Treatment Clinical Notes Dec, Autoimmune thyroiditis (ICD-10 - E06.3) [facility] Other 08-10-2023 Evaluation note* Encounter Date Diagnosis Assessment Notes Treatment Notes Treatment Clinical Notes Dec, Wellness examination (ICD-10 - Z00.00) Healthy diet and exercise. Reviewed age-appropriate preventive testing recommended. Dec, Chondromalacia (ICD- 10 - M94.20) Reviewed stretching exercises, ice/heat and avoid squatting/kneeli ng. Celebrex as needed Dec, Gastroesophageal ref lux disease with esophagitis without hemorrhage (ICD-10 - K21.00) Diet instructions: Smaller portions, avoid eating and laying flat, avoid eating or drinking prior to bedtime. Weight loss. 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 f/u Oncology [facility] Other 06-22-2023 NoteHNO ID: [id number] Author: Carol Wills MD Service: ? Author Type: Physician Type: Progress Notes Filed: 11/19/2022 6:52 PM Note Text: PATIENT NAME: Eulalia Little DATE: 11/19/2022 PRIMARY CARE PHYSICIAN: Dr. Paulo Lawrence Portions of this encounter note have been copied from my note from 11/10/2021 and has been updated where appropriate, and reflect my current medical decision making from today. CC: This is a 57 year old female with a history of breast cancer, seen for scheduled follow-up. INTERIM HISTORY: Since the patient's last visit here she has had no significant medical changes. She has noticed no changes in her breasts. No unusual pain or other systemic complaints. MEDICATIONS: LEVOTHYROXINE 75 mcg tablet Take 75 mcg by mouth once daily. ALLERGIES: Patient has no known allergies. PAST MEDICAL HISTORY: PAST MEDICAL HISTORY Diagnosis Date Breast cancer (HCC) 03/2007 Rt. 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 HEENT: Negative for frequent or significant headaches. No changes in hearing or vision, no nose bleeds or other nasal problems. Respiratory: Negative for cough, wheezing or shortness of breath. Cardiovascular: Negative for chest pain, leg swelling or palpitations. GI: Negative for abdominal discomfort, blood in stools or black stools or change in bowel habits. : No history of dysuria, frequency or incontinence. Musculoskeletal: Negative for: joint pain or swelling, back pain and muscle pain. Skin: Negative for lesions, rash, and itching. Hematology/Lymphology: Negative for prolonged bleeding, bruising easily or swollen nodes. Neuro: No history of headaches, syncope, paralysis, seizures or tremors. PHYSICAL EXAM: Vitals: BP 118/98 Pulse 73 Temp 36.3 ?C (97.4 ?F) (Temporal) Resp 16 Ht 167.6 cm (5' 5.98 ) Wt 57.2 kg (126 lb 3.2 oz) LMP 08/29/2013 SpO2 100% BMI 20.38 kg/m? General appearance: Well appearing, alert, in no acute distress, well-hydrated, well nourished. Skin: Skin color, texture, turgor normal, no suspicious rashes or lesions. Head: Normal. Eyes: Anicteric sclera. Pupils are equally round and reactive to light. Extraocular movements are intact. Ears: Negative findings. External ears normal to inspection and palpation. Oropharynx: Negative. Neck: Supple, no adenopathy; thyroid symmetric, normal size. Lymph Nodes: No submandibular, cervical, supraclavicular, axillary or inguinal lymphadenopathy present. Breast: Bilateral breast implants. No suspicious masses or skin changes on examination. No obvious tenderness on palpation. Near the end of the surgical scar near the patient's right nipple there appears to be a small scar but no masses Back: No tenderness to palpation. Lungs: Clear to auscultation, no wheezing or rhonchi. Heart: Negative. RRR without murmur, gallop, or rubs. No ectopy. Abdomen: Normal abdominal exam. Abdomen soft, non-tender. Bowel sounds normal. No masses, organomegaly. Rectal: Not done. Extremities: Extremities normal. No deformities, edema, or skin discoloration. Good capillary refill. Musculoskeletal: No joint swelling, deformity, or tenderness. Peripheral pulses: Normal. RADIOLOGIC DATA: 05/04/2022 Bilateral breast MRI ([facility]) No MRI evidence of malignancy. Routine follow-up is recommended in 1 year. 11/22/2018 Right breast and axillary ultrasound ([facility] [place]) Redemonstration of 2 well-circumscribed elongated hypoechoic structures at 4:00, periareolar region, stable and benign nature. No mass or prominent lymphadenopathy at the right axillary region. LABORATORY DATA: Hemoglobin (g/dL) Date Value 11/08/2020 12.7 Hematocrit (%) Date Value 11/08/2020 38.1 WBC (k/uL) Date Value 11/08/2020 3.86 Platelet Count (k/uL) Date Value 11/08/2020 168 ASSESSMENT/PLAN: 1. 174.9 Breast cancer Stage I (T1,N0,M0) ER/OH pos, HER2 neg right breast cancer diagnosed March of 2007. The patient presented with an abnormal mammogram in February 2007 revealing microcalcifications in the left breast. 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 She sought a second opinion at the [facility]. A bilateral breast MRI was done which showed an occult tumor in the right breast which was biopsy proven to be stage I ER/OH positive low-grade ductal carcinoma. The patient underwent bilateral mastectomies with implant reconstruction. The patient subsequently received adjuvant hormonal therapy with Zoladex and anastrozole x 5 years March 2007 through April 2012. She has had no signs of disease recurrence since. At this time we will continue routine observation. 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 Paulo Lawrence Portions of this encounter note have been copied from my note from 11/08/2020 and has been updated where appropriate, and reflect my current medical decision making from today. CC: This is a 56 year old female with a history of breast cancer, seen for scheduled follow-up. INTERIM HISTORY: Since the patient's last visit here she has had no significant medical changes. She has noticed no changes in her breasts. No unusual pain or other systemic complaints. MEDICATIONS: pantoprazole DR (PROTONIX) 40 mg tablet take 1 tablet by mouth ON AN EMPTY STOMACH 30 MINUTES BEFORE BREAKFAST LEVOTHYROXINE 75 mcg tablet Take 75 mcg by mouth once daily. ALLERGIES: Patient has no known allergies. PAST MEDICAL HISTORY: PAST MEDICAL HISTORY Diagnosis Date Breast cancer (HCC) 03/2007 Rt. breast ER+, HER 2- DCIS (ductal carcinoma in situ) Lt. breast PAST SURGICAL HISTORY: PAST SURGICAL HISTORY Procedure Laterality Date BREAST BIOPSY 2006 D&C, DIAG AND/OR THERAPEUTIC 02/2013 Dilation & curettage MASTECTOMY HX Bilateral REVIEW OF SYSTEMS: General: No weight loss, malaise or fevers. HEENT: Negative for frequent or significant headaches. No changes in hearing or vision, no nose bleeds or other nasal problems. Respiratory: Negative for cough, wheezing or shortness of breath. Cardiovascular: Negative for chest pain, leg swelling or palpitations. GI: Negative for abdominal discomfort, blood in stools or black stools or change in bowel habits. : No history of dysuria, frequency or incontinence. Musculoskeletal: Negative for: joint pain or swelling, back pain and muscle pain. Skin: Negative for lesions, rash, and itching. Hematology/Lymphology: Negative for prolonged bleeding, bruising easily or swollen nodes. Neuro: No history of headaches, syncope, paralysis, seizures or tremors. PHYSICAL EXAM: Vitals: BP 117/76 Pulse 77 Temp 36.4 C (97.6 F) (Temporal) Resp 16 Ht 167.6 cm (5' 5.98 ) Wt 56.5 kg (124 lb 9.6 oz) LMP 08/29/2013 SpO2 100% BMI 20.12 kg/m General appearance: Well appearing, alert, in no acute distress, well-hydrated, well nourished. Skin: Skin color, texture, turgor normal, no suspicious rashes or lesions. Head: Normal. Eyes: Anicteric sclera. Pupils are equally round and reactive to light. Extraocular movements are intact. Ears: Negative findings. External ears normal to inspection and palpation. Oropharynx: Negative. Neck: Supple, no adenopathy; thyroid symmetric, normal size. Lymph Nodes: No submandibular, cervical, supraclavicular, axillary or inguinal lymphadenopathy present. Breast: Bilateral breast implants. No suspicious masses or skin changes on examination. No obvious tenderness on palpation. Near the end of the surgical scar near the patient's right nipple there appears to be a small scar but no masses Back: No tenderness to palpation. Lungs: Clear to auscultation, no wheezing or rhonchi. Heart: Negative. RRR without murmur, gallop, or rubs. No ectopy. Abdomen: Normal abdominal exam. Abdomen soft, non-tender. Bowel sounds normal. No masses, organomegaly. Rectal: Not done. Extremities: Extremities normal. No deformities, edema, or skin discoloration. Good capillary refill. Musculoskeletal: No joint swelling, deformity, or tenderness. Peripheral pulses: Normal. RADIOLOGIC DATA: 05/19/2021 Bilateral breast MRI ([facility]) Bilateral mastectomy with intact implant reconstruction. No suspicious MRI findings involving either breast. 11/22/2018 Right breast and axillary ultrasound ([facility]) Redemonstration of 2 well-circumscribed elongated hypoechoic structures at 4:00, periareolar region, stable and benign nature. No mass or prominent lymphadenopathy at the right axillary region. LABORATORY DATA: Hemoglobin (g/dL) Date Value 11/08/2020 12.7 Hematocrit (%) Date Value 11/08/2020 38.1 WBC (k/uL) Date Value 11/08/2020 3.86 Platelet Count (k/uL) Date Value 11/08/2020 168 ASSESSMENT/PLAN: 1. 174.9 Breast cancer Stage I (T1N0M0) ER/OH pos, HER2 neg right breast cancer diagnosed March of 2007. The patient presented with an abnormal mammogram in February 2007 revealing microcalcifications in the left breast. 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 She sought a second opinion at [facility]. A bilateral breast MRI was done which showed an occult tumor in the right breast whichwas biopsy proven to be stage I ER/OH positive low-grade ductal carcinoma. The patient underwent bilateral mastectomies with implant reconstruction. The patient subsequently received adjuvant hormonal therapy with Zoladex and anastrozole x 5 years March 2007 through April 2012. She has had nosigns of disease recurrence since. At this time we will continue routine follow-up. At the patient's request we will continue with a yearly breast MRI, next due April 2022. I will see her back in 1 year for follow-up. Her PCP obtains routine labs, therefore we will only check additional labs if suspicious findings. 2. 244.9 Hypothyroidism Stable on medications, will follow with PCP. Carol Wills MD [facility]* Encounter Date Diagnosis Assessment Notes Treatment Notes Treatment Clinical Notes Apr, Dysphagia (ICD-10 - R13.10) Apr, Epigastric pain (ICD-10 - R10.13) [facility] Other 11-23-2021 Evaluation note* Encounter Date Diagnosis Assessment Notes Treatment Notes Treatment Clinical Notes Mar, Epigastric pain (ICD-10 - R10.13) patient states discomfort. does not idania medication Mar, Dysphagia (ICD-10 - R13.10) does notice this with big vitamins. does not notice with food or liquids, proceed with EGD at this time. Mar, Heartburn (ICD-10 - R12) does not take medication for this. [facility] Other Evaluation note* Diagnosis Malignant neoplasm of upper-outer quadrant of right breast in female, estrogen receptor positive (HCC)- Primary Ductal carcinoma in situ (DCIS) of left breast [facility] assessment information [facility] Work Phone: Evaluation noteNo InformationNort Pursuit Management Other Evaluation note* Diagnosis Onset Date Resolution Status GERD (gastroesophageal reflux disease) acute H/O malignant neoplasm of breast acute Hypothyroidism acute Wellness examination noneact [facility] Work Phone: History general Narrative - Reported* Type Description Date Medical History hypothyrodism Medical History breast cancer Surgical History bilat mastectomy 2006 Surgical History TMJ surgery 1989 Surgical History T&A 1977 Hospitalization History SEE ABOVE SURGERY Hospitalization History [facility] Other Hispvbl general Narrative - Reported* Type Description Date Medical History hypothyrodism Medical History breast cancer Surgical History bilat mastectomy 2006 Surgical History TMJ surgery 1989 Surgical History T&A 1977 Surgical History Colonoscopy 2018 Hospitalization History SEE ABOVE SURGERY Hospitalization History [facility] Hospitalization History NO OVERNIGHT STAYS OR ER VISITS IN THE LAST YEAR 10/19/22 [facility] Other Reason for referral (narrative)* Diagnostic Procedure Only (Routine) - Pending Review Specialty Diagnoses / Procedures Referred By Mary sebastian Referred To Contact [facility] Diagnoses Malignant neoplasm of upper-outer quadrant of right breast in female, estrogen receptor positive (HCC) Procedures RADHA DIAGNOSTIC BILAT DIAGNOSTIC MAMMOGRAPHY COMPUTER-AIDED DETCJ Carol Reed MD [address] [place] [address] [place] [address] [facility] [address] [place] [id number] Referral ID Status Reason Start Date Expiration Date Visits Requested Visits Authorized [id number] Pending Review Auto-Generat ed Referral 11/10/2021 12/10/2022 1 1 * MRI/CT (Routine) - Pending Review Specialty Diagnoses / Procedures Referred By Contac t Referred To Contact [facility] Diagnoses Malignant neoplasm of upper-outer quadrant of right breast in female, estrogen receptor positive (HCC) Procedures MRI BREAST WO/W IVCON BILAT MRI BREAST WITHOUT&WITH CONTRAST W/CAD BILATERAL Carol Wills MD [address] [place] [address] [place] [address] [facility] Referral ID Status Reason Start Date Expiration Date Visits Requested Visits Authorized [id number] Pending Review Auto-Generat ed Referral 11/10/2021 12/10/2022 1 1 [facility] Summary Purpose Family History Relationship Condition Age at Onset Recorded Date/T jorge father Heart disease Unknown Relationship Condition Age at Onset Recorded Date/T jorge father Heart disease Unknown Unknown Advance Directives Advance Directive Response Recorded Date/ Time Advance Directives No September 10, 018 1:40pm Advance Directive Response Recorded Date/ Time Advance Directives No September 10, 018 2:40pm Chief Complaint and Reason for Visit Chief Complaint C51.411 Z17.0 Chief Complaint c50.411 z17.0 Chief Complaint wellness Reason for Visit GERD (gastroesophage al reflux disease) H/O malignant neoplasm of breast Hypothyroidism Wellness examination Additional Source Comments INFORMATION SOURCE (unrecogn ized section and content) DATE CREATED AUTHOR 09/17/2018 [facility] DATE CREATED AUTHOR AUTHOR'S ORGANIZ ATION 01/21/2022 [facility] DATE CREATED AUTHOR AUTHOR'S ORGANIZ ATION 11/20/2022 [facility] DATE CREATED AUTHOR AUTHOR'S ORGANIZ ATION 05/15/2023 [facility] DATE CREATED AUTHOR AUTHOR'S ORGANIZ ATION 12/06/2023 [facility] EPIC Source Comments (unrecognize d section and content) In the event this informatio n is protected by the Federal Confidentiality of Alcohol and Drug Abuse Patient Records regulations: The Federal rules restrict any use of the information to criminally investigate or prosecute any alcohol or drug abuse patient.[facility] Reason for Visit (unrecogniz ed section and content) Reason Comments [facility] Teams (unrecognized sec tion and content) Team Status: Active Member Role Status Dates Paulo Lawrence DO Primary Care Provider Active Team Status: Inactive Member Role Status Dates Paulo Lawrence DO Primary Care Provider Active Carol Wills MD Attending Provider Active Hammer Smith Relationship Specialty Start Date End Date Paulo Lawrence DO PCP - General Internal Medicine 08/25/11 Team Status: Inactive Member Role Status Dates Paulo Lawrence DO Primary Care Provide r, Attending Provider Active Start: January 11, 2024 End: January 11, 2024 Goals (unrecognized section and content) Goals may be documented in a n alternate section FOR RECORDS PERTAINING TO PATIENTS WHO ARE OR HAVE BEEN ENROLLED IN A CHEMICAL DEPENDENCY/SUBSTANCEABUSE PROGRAM, SOME INFORMATION MAY BE OMITTED. This clinical summary was aggregated from multiple sources. Caution should be exercised in using it in the provision of clinical care. This summary normalizes information from multiple sources, and as a consequence, information in this document may materially change the coding, format and clinical context of patient data. In addition, data may be omitted in some cases. CLINICAL DECISIONS SHOULD BE BASED ON THE PRIMARY CLINICAL RECORDS. [facility]. provides no warranty or guarantee of the accuracy or completeness of information in this document.
[2024-01-11 09:13] LABS: Basophils Absolute Auto 0.1 10^3/uL (0.0-0.1); Basophils Percent Auto 1.8 % (0.2-2.0); Eosinophils Absolute Auto 0.1 10^3/uL (0.0-0.7); Hematocrit 40.2 % (36.0-48.0); Hemoglobin 13.2 g/dL (12.0-16.0); Lymphocytes Absolute Auto 1.2 10^3/uL (1.2-3.8); Lymphocytes Percent Auto 35.9 % (20.5-60.0); Mean Corpuscular HGB Conc 32.8 g/dL (29.9-35.2); Mean Corpuscular Hemoglobin 32.5 pg (26.7-34.0); Monocytes Absolute Auto 0.3 10^3/uL (0.3-0.8); Monocytes Percent Auto 9.8 % (1.7-12.0); Neutrophils Absolute Auto 1.7 10^3/uL (1.4-6.5); Neutrophils Percent Auto 49.5 % (43.0-75.0); Platelet Count 170 10^3/uL (150-450); Red Blood Count 4.06 10^6/uL (4.20-5.40); Red Cell Distribution Width 12.1 % (11.0-15.0); White Blood Count 3.4 10^3/uL (4.0-11.0)
[2024-01-11 10:53] LABS: Alanine Aminotransferase 29 U/L (14-59); Albumin Globulin Ratio 1.4; Albumin Level 4.1 g/dL (3.4-5.0); Alkaline Phosphatase 62 U/L (46-116); Anion Gap 11.1; Aspartate Amino Transferase 21 U/L (15-37); BUN Creatinine Ratio 15.5; Bilirubin Total 0.7 mg/dL (0.2-1.0); Calcium 9.2 mg/dL (8.5-10.1); Carbon Dioxide 30.1 mmol/L (21.0-32.0); Chloride 102 mmol/L (98-107); Chol HDL Ratio 2.3; Cholesterol 218 mg/dL (<=200); Estimated GFR (African America >60 (>=60); Estimated GFR (Non-African Ame 59 (>=60); Globulin 2.9 g/dL; Glucose 87 mg/dL (74-106); HDL Cholesterol 95 mg/dL (40-60); Potassium 4.2 mmol/L (3.5-5.1); Sodium 139 mmol/L (136-145); Thyroid Stimulating Hormone 2.203 uIU/mL (0.358-3.740); Triglycerides 49 mg/dL (<=150); VLDL CHOLESTEROL 9.8 mg/dL
== END 2024-01-11 09:01 | disposition home or self-care (01) ==
LOC: LAB 09:02
PROVIDERS: PCP Internal Medicine; Visit Provider Internal Medicine
DX: Z00.00 Encounter for general adult medical examination without abnormal findings (principal)
CPT/HCPCS: 36415; 80053; 80061; 84443; 85025

== ENCOUNTER 2025-01-25 10:15 | Outpatient (OUT) | payer BC, SELFPAY ==
--- OUTSIDE RECORDS SUMMARY | 2025-01-25 10:33 | XMS_ITS | CCD ---
Author Organization [facility] Care Team Providers Care Preschool Teacher'S Assistant Name Role Phone PHYSICIAN, DEFAULT Admitting Unavailable PHYSICIAN, DEFAULT Attending Unavailable Paulo Lawrence DO Primary Care Provider Rafi Amador Unavailable HOWARD, DR GONCALVES Primary Care Unavailable HOWARD, DR GONCALVES Admitting Unavailable BALL, DR GONCALVES Attending Unavailable BALL, DR GONCALVES Consulting Unavailable BALL, DR GONCALVES Consulting Unavailable BALL, DR GONCALVES Primary Care Unavailable BALL, DR GONCALVES Admitting Unavailable BALL, DR GONCALVES Attending Unavailable BALL, DR GONCALVES Primary Care Unavailable BALL, DR GONCALVES Admitting Unavailable BALL, DR GONCALVES Attending Unavailable BALL, DR GONCALVES Consulting Unavailable HOWARD, DR GONCALVES Primary Care Unavailable BALL, DR GONCALVES Admitting Unavailable BALL, DR GONCALVES Attending Unavailable HOWARD, DR GONCALVES Consulting Unavailable RICARDO, DR PAULETTE Patten Consulting Unavailable IZZY, DR Tessie Valentino Consulting Unavailable HOWARD, DR GONCALVES Primary Care Unavailable IZZY, DR Tessie Valentino Admitting Unavailable IZZY, DR Tessie Valentino Attending Unavailable HOWARD, DR GONCALVES Primary Care Unavailable BALL, DR GONCALVES Admitting Unavailable BALL, DR GONCALVES Attending Unavailable BALL, DR GONCALVES Consulting Unavailable Howard, DO Paulo Primary Care Provider [phone] MD Carol Wills Attending Provider [phone] Paulo Lawrence Unavailable DO Paulo Lawrence Primary Care Provider [phone] MD Carol Wills Attending Provider [phone] Paulo Lawrence DO Primary Care Provider PAULO LAWRENCE Primary Care Unavailable CAROL WILLS Attending Unavailable PAULO LAWRENCE Primary Care Unavailable Paulo Lawrence DO Primary Care Provider [phone] Carol Wills MD Attending Provider [phone] Paulo Lawrence Primary Care Unavailable Carol Wills Admitting Unavailable Carol Wills Attending Unavailable Paulo Lawrence Primary Care Unavailable Carol Wills Admitting Unavailable Carol Wills Attending Unavailable Paulo Lawrence DO Primary Care Provider SHELBY CRUZ Attending Unavailable RIHSI RUBIO Referring Unavailable RISHI RUBIO Attending Unavailable Medications Current Medications Medication Drug Class(es) Dates Sig (Normalized) Sig (Original) amoxicillin 500 mg oral capsule (1 source) Penicillin-class Antibacterial Start: 09-06-2024 take 4 capsules by mouth every hour amoxicillin (Amoxil) 500 MG capsule TAKE 4 CAPSULES BY MOUTH ONE HOUR PRIOR TO PROCEDURE 09/06/2024 Active azithromycin 250 mg oral tablet (4 sources) Macrolide Antimicrobial Start: 05-05-2023 Azithromycin 250 MG as directed Orally daily for 5 days May, Active cholecalciferol 0.025 mg oral capsule (6 sources) Vitamin D Start: 08-03-2023 take 1 capsule by mouth once daily Cholecalciferol (Vitamin D3) 25 mcg (1,000 unit) capsule Active 25 MCG PO Daily August 03, 2023 12:00am Cholecalciferol (VITAMIN D-3 PO) Vitamin D3 Active levothyroxine sodium 0.088 mg oral tablet (20 sources) l-Thyroxine Start: 10-08-2024 Synthroid 88 M CG tablet 88 mcg 10/08/2024 Active Start: 09-02-2012 End: 12-11-2024 take 1 tablet by mouth once daily Levothyroxine 75 mcg tablet Discontinued 75 MCG PO Daily May 25, 2018 12:00am August 03, 2023 11:56am Start: 09-02-2012 End: 11-16-2023 take 1 tablet by mouth once daily Levothyroxine 88 mcg tablet Discontinued 88 MCG PO Daily August 03, 2023 12:00am November 16, 2023 10:21am take 1 tablet by talha th once daily Levothyroxine Sodium 88 MCG 1 tablet orally daily, on an empty stomach for 90 days Active take 1 tablet by talha th every twenty-four hours Levothyroxine Sodium 75 MCG 1 Tablet orally daily Active Comment on above: Take 75 mcg by mouth once daily. mecobalamin (1 source) Start: 08-03-2023 take 1000 ug by mouth once daily Mecobalamin (Vitamin B12) Active 1000 MCG PO Daily August 03, 2023 1:00am allow to dissolve in mouth OR may chew lightly before swallowing Mecobalamin (Vitamin B12) 1,000 mcg lozenge (1 source) Start: 08-03-2023 take 1000 ug by mouth once daily Mecobalamin (Vitamin B12) 1,000 mcg lozenge Active 1000 MCG PO Daily August 03, 2023 12:00am allow to dissolve in mouth OR may chew lightly before swallowing Multiple Vitamins-Minerals (MULTIVITAMIN ADULTS PO) (4 sources) Multiple Vitamins-Minerals (MULTIVITAMIN ADULTS PO) Multivitamin Active Multivitamin preparation (13 sources) Start: 08-03-2023 take 1 tablet by mouth once daily Multivitamin Active 1 TAB PO Daily August 03, 2023 1:00am Multivitamin Act demetri Multivitamin tablet (1 source) Start: 08-03-2023 take 1 tablet by mouth once daily Multivitamin tablet Active 1 TAB PO Daily August 03, 2023 12:00am sulfamethoxazole 800 mg / trimethoprim 160 mg oral tablet (6 sources) Dihydrofolate Reductase Inhibitor Antibacterial, Sulfonamide Antimicrobial Start: 04-21-2023 take 1 tablet by mouth every twelve hours Sulfamethoxazole-Tr imethoprim 800-160 MG 1 tablet Orally Twice a day for 5 days Mar, Active traMADol hydrochloride 50 mg oral tablet (6 sources) Opioid Agonist Start: 08-04-2023 End: 12-11-2024 traMADol (Ultram) 50 MG tablet if needed 08/04/2023 12/11/2024 Discontinued (Therapy completed) vitamin B12 (16 sources) Vitamin B12 Cyanocobalamin (VITAMIN B-12 PO) Vitamin B12 Active Vitamin B12 Acti ve Vitamin D3 (12 sources) Vitamin D3 Activ e Completed/Discontinued Medications Medication Drug Class(es) Dates Sig (Normalized) Sig (Original) 5 ml bupivacaine hydrochloride 5 mg/ml injection (4 sources) Amide Local Anesthetic Start: 11-06-2024 End: 11-06-2024 bupivacaine PF (Marcaine) 0.5 % injection 1 mL Start: 11-06-2024 End: 11-06-2024 1 mL, Injection, Once PRN Pr ocedure, Starting on Wed11/06/24 at 0951, For 1 dose celecoxib 200 mg oral capsule (12 sources) Nonsteroidal Anti-inflammatory Drug Start: 08-03-2023 End: 01-11-2024 take 1 capsule by mouth once daily Celecoxib 200 mg capsule Discontinued 200 MG PO Daily August 03, 2023 12:00am January 11, 2024 7:52am Start: 01-07-2023 take 1 capsule by mo [facility] every twenty-four hours Celecoxib 200 MG 1 capsule with food Orally Once a day for 30 days Dec, Active famotidine 40 mg oral tablet (14 sources) Histamine-2 Receptor Antagonist Start: 08-03-2023 End: 01-11-2024 take 1 tablet by mouth twice daily Famotidine 40 mg tablet Discontinued 40 MG PO Twice daily August 03, 2023 12:00am January 11, 2024 7:52am Start: 08-04-2021 [facility] Famotidine 40 MG 1 TABLET Orally Twice a day PRN Jul, Active iv contrast (will be provide d with radiology test) (2 sources) Start: 01-17-2024 End: 01-18-2024 iv contrast (will be provide d with radiology test) MRI Breast MAHENDRA Inject, [...] MR contrast administration guidelines link 1 Each 01/17/2024 01/18/2024 Start: 11-10-2021 End: 11-11-2021 iv contrast (will be provide d with radiology test) MRI Breast MAHENDRA Inject, [...] the MR contrast administration guidelines link 1 ml methylPREDNISolone acetate 40 mg/ml injection (4 sources) Corticosteroid Start: 11-07-19 End: 11-07-19 methylPREDNISolone acetate (DEPO-Medrol) injection 40 mg Start: 11-06-2024 End: 11-06-2024 40 mg, Intra-articular, Once PRN Procedure, Starting on Wed11/06/24 at 0951, For 1 dose pantoprazole 40 mg delayed release oral tablet [...] AN EMPTY STOMACH 30 MINUTES BEFORE BREAKFAST Problems Active Problems Problem Classification Problem Date [...] degree] Episodic Cancer of breast (20 sources) History of malignant neoplasm of breast; Translations: [Personal history of malignant neoplasm of breast] Onset: 3 Episodic Comment on above: 2007 Diseases of mouth; excluding dental (1 source) [...] syndrome; Translations: [Patellofemoral disorders, right knee] Chronic Menopausal disorders (4 sources) Atrophic vaginitis; Translations: [Postmenopausal atrophic vaginitis] Onset: 3 11-24-2022 Chronic Other bone disease and musculoskeletal deformities (1 source) Chondromalacia, unspecified site Episodic Other bone disease and musculoskeletal deformities (1 source) Osteopenia; Translations: [Other specified disorders of bone density and structure, unspecified site] 05-16-2024 Episodic Comment on above: DEXA: 04/2024 Other congenital anomalies (4 sources) Porokeratosis; Translations: [Other specified congenital malformations of skin] Onset: 3 11-24-2022 Chronic Other gastrointestinal disorders (12 sources) Irritable bowel syndrome characterized by constipation; Translations: [Irritable bowel syndrome with constipation] Onset: 9 08-03-2023 Chronic Other hematologic conditions (14 sources) Other specified diseases of blood and blood-forming organs; Translations: [Disease of blood AND/OR blood-forming organ] Onset: 2 Chronic Other non-traumatic joint disorders (4 sources) Disorder of shoulder; Translations: [Other specified joint disorders, right shoulder] 11-06-2024 Episodic Other non-traumatic joint disorders (2 sources) Pain in right shoulder; Translations: [Pain in joint, shoulder region] 10-30-2024 Episodic Other non-traumatic joint disorders (2 sources) Pain of right acromioclavicular joint; Translations: [Pain in right shoulder] 11-06-2024 Episodic Other screening for suspected conditions (not mental disorders or infectious disease) (7 sources) Patient encounter status; Translations: [Encounter for screening for malignant neoplasm of colon] Onset: 4 05-30-2018 Episodic Other skin disorders (10 sources) Alopecia; Translations: [Nonscarring hair loss, unspecified] Episodic Other upper respiratory disease (4 sources) Chronic rhinitis; Translations: [Chronic rhinitis] Onset: 3 11-24-2022 Chronic Other upper respiratory infections (10 sources) Acute maxillary sinusitis; Translations: [Acute maxillary sinusitis, unspecified] Episodic Spondylosis; intervertebral disc disorders; other back problems (12 sources) Backache; Translations: [Dorsalgia, unspecified] Onset: 3 08-04-2023 Episodic Thyroid disorders (20 sources) Sunil thyroiditis; 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 Past or Other Problems Problem Classification Problem Date Documented Da te Episodic/Chronic Cancer of breast (20 sources) Malignant neoplasm of upper-outer quadrant of female breast; Translations: [Malignant neoplasm of upper-outer quadrant of right female breast] Onset: 3 Resolved: 3 Chronic Comment on above: Dx: 2007Recomward cordero MRI breast (PCP responsible for order) Cardiac dysrhythmias (10 sources) Palpitations; Translations: [Palpitations] Onset: 9 Episodic Conditions associated with dizziness or vertigo (10 sources) Dizziness and giddiness; Translations: [Dizziness and giddiness] Onset: 4 Episodic Immunizations and screening for infectious disease (10 sources) Contact with and (suspected) exposure to other viral communicable diseases; Translations: [Contact with and (suspected) exposure to COVID-19] Resolved: 2 Episodic Joint disorders and dislocations; trauma-related (4 sources) Traumatic closed dislocation of temporomandibular joint; Translations: [Dislocation of jaw, unspecified side, initial encounter] Onset: 3 11-24-2022 Episodic Malaise and fatigue (11 sources) Other fatigue; Translations: [Fatigue] Onset: 1 Resolved: 2 Episodic Nonspecific chest pain (10 sources) Precordial pain; Translations: [Precordial pain] Onset: 9 Episodic Other circulatory disease (10 sources) Cardiovascular symptoms; Translations: [Other specified symptoms and signs involving the circulatory and respiratory systems] Onset: 6 Episodic Other connective tissue disease (4 sources) Pain in limb; Translations: [Pain in unspecified limb] Onset: 3 Resolved: 5 11-24-2022 Episodic Other ear and sense organ disorders (10 sources) Acute actinic otitis externa; Translations: [Acute actinic otitis externa, left ear] Resolved: 2 Episodic Other female genital disorders (4 sources) Abnormal uterine bleeding; Translations: [Other specified abnormal uterine and vaginal bleeding] Onset: 3 Resolved: 5 11-24-2022 Chronic Other gastrointestinal disorders (18 sources) Dysphagia; Translations: [Dysphagia, unspecified] Onset: 3 11-24-2022 Episodic Other gastrointestinal disorders (6 sources) Dysphagia, unspecified; Translations: [DYSPHAGIA UNSPECIFIED] Onset: 1 Resolved: 1 Episodic Other gastrointestinal disorders (1 source) Heartburn Onset: 1 Resolved: 1 Episodic Other lower respiratory disease (20 sources) Dyspnea; Translations: [Other forms of dyspnea] Onset: 9 Episodic Other nutritional; endocrine; and metabolic disorders (10 sources) Abnormal weight loss; Translations: [Abnormal weight loss] Onset: 9 Episodic Danyelle-; endo-; and myocarditis; cardiomyopathy (except that caused by tuberculosis or sexually transmitted disease) (10 sources) Disorder of pericardium; Translations: [Pericardial effusion (noninflammatory)] Onset: 9 Episodic Residual codes; unclassified (10 sources) Early satiety; Translations: [Early satiety] Onset: 9 Episodic Superficial injury; contusion (10 sources) Contusion of left hand; Translations: [Contusion of left hand, initial encounter] Onset: 7 Episodic Results Test Name Value Interpretation Reference Range Facility No Panel Informationon 11-06 AUSTIN Barajas 11/06/2024 9:54 AM L Inj/Asp: R subacromial bursa on 11/06/2024 9:51 AM Indications: pain Details: 21 G needle, posterior approach Medications: 40 mg methylPREDNISolone acetate 40 MG/ML; 1 mL bupivacaine PF 0.5 % Outcome: tolerated well, no immediate complications Utilizing aseptic technique with universal precautions . Pt given injection Right Shoulder SA space (Code 59585 RT) Procedure, treatment alternatives, risks and benefits explained, specific risks discussed. Consent was given by the patient. zLense e XR Shoulder - right 2 Viewso n 11-06-2024 Imaging Result: Right Shoulder AP and Scap Y No acute fracture or dislocation Bone Structures clavicle and scapula and humeral head appear normal alignment, slight elevation of distal clavicle with degenerative changes, possible remote ac joint injury. Glenohumeral joint space maintained, osteopenia noted. Soft tissues and limited visualized lung mendez unremarkable Impression: Normal shoulder with no acute bony abnormalities. zLense e Radiology Study observation (narrative) Cheers In MR breast BI wo/w con CADon 07-03-2024 MR breast BI wo/w con CAD [facility] [place] [address] [place] [address] MRI Report Signed Patient: Eulalia Little MR#: [id number] : 1965 Acct:[id number] Age/Sex: 59 / F ADM Date: 07/03/24 Loc: MR Room: Type: [facility] Attending Dr: Carol Wills MD Copies to: Carol Wills MD Ordering Provider: Carol Wills MD Date of Service: 07/03/24 MR/MR breast BI wo/w con CAD: Z17.0 Z13.820, Z78.0 BILATERAL BREAST MRI WITHOUT AND WITH INTRAVENOUS CONTRAST CLINICAL HISTORY: History of breast cancer in 2017 with bilateral mastectomy and implant placement. Lump on both breasts. COMPARISON: Breast MRI 05/07/2023. TECHNIQUE: Multisequence, multiplanar imaging of the breasts were obtained before and after the use of IV contrast. All imaged data was reviewed using the Hachiko system. The postcontrast images were subtracted and CAD mapping of the enhancement kinetics was performed. Kinetic curves were generated. 2D and 3D MIP images were also reviewed.Please note that cancer detection protocol was utilized [...] 1YR Impression dictated by: Matthew Fuentes Jr., D.OMigel07/03/2024 2:46 PM Dictation Location: [place] [address] Transcribed By: [facility] 07/03/24 1446 Dictated By: Matthew Fuentes Jr, DO 07/03/24 1442 Signed By: 07/03/24 1446 Normal [facility] Magnetic resonance imaging r eportOrdered By: Matthew Fuentes on 07-03-2024 Study report [facility] [place] [address] [place] [address] MRI Report Signed Patient: Eulalia Little MR#: [id number] : 1965 Acct:[id number] Age/Sex: 59 / F ADM Date: 5 Loc: MR Room: Type: [facility] Attending Dr: Carol Wills MD Copies to: Carol Wills MD~ Ordering Provider: Carol Wills MD Date of Service: 07/03/24 MR/MR breast BI wo/w con CAD: Z17.0 Z13.820, Z78.0 BILATERAL BREAST MRI WITHOUT AND WITH INTRAVENOUS CONTRAST CLINICAL HISTORY: History of breast cancer in 2017 with bilateral mastectomy and implant placement. Lump on both breasts. COMPARISON: Breast MRI 05/07/2023. TECHNIQUE: Multisequence, multiplanar imaging of the breasts were obtained before and after the use of IV contrast. All imaged data was reviewed using theHachiko system. The postcontrast images were subtracted and CAD mapping of the enhancement kinetics was performed. Kinetic curves were generated. 2D and 3D MIP images were also reviewed.Please note that cancer detection protocol was utilized [...] 1YR Impression dictated by: Matthew Fuentes Jr., D.OMigel07/03/2024 2:46 PM Dictation Location: [place] [address] Transcribed By: MARK 07/03/24 144 Dictated By: Matthew Fuentes Jr, DO 07/03/24 144 Signed By: 07/03/[address] [facility] Nelda 05-18-2024 CNPN Telephone ([facility]) EULALIA LITTLE ([id number]) 1965 F Date Time Provider Department 05/18/24 AMANDA SPRINGER During your visit today, we recorded the following information about you: Amanda Springer RN 05/18/2024 11:18 AM Signed BRM reviewed bone density report completed at [facility]. Pt to continue with calcium/vit D, as previously taking. Pt called and updated. She is agreeable to plan of care and denies any questions, needs or concerns at this time. Amanda Springer RN Allergies As of Date: 05/18/2024 (No Known Allergies) Date Reviewed: 01/17/2024 Reviewed by: Viki Kinney MA - Fully Assessed Reason for Visit: Bone desity report [Other] Prescriptions as of 05/18/2024 - levothyroxine (SYNTHROID) 88 mcg tablet Take 88 mcg by mouth once daily. Problem List As Of Date 05/18/2024 Noted Resolved Breast cancer [C50.919] 09/16/2012 Encounter Status:Closed by AMANDA SPRINGER on 05/18/24 Normal [facility] CNOVSPon 01-17-2024 CNOVSP Visit (SP) Office ([place]) EULALIA LITTLE ([id number]) 1965 F Date Time Provider Department 01/17/24 2:15 PM CAROL WILLS During your visit today, we recorded the following information about you: Temperature Pulse Respiration Blood pressure 97 degrees 58/minute 18/minute 128/86 Weight 58.1 kg Carol Wills MD 01/19/2024 5:44 AM Signed PATIENT NAME: Eulalia Little DATE: 01/17/2024 PRIMARY CARE PHYSICIAN: Dr. Paulo Lawrence Portions of this encounter note have been copied from my note from 11/19/2022 and has been updated where appropriate, and reflect my current medical decision making from today. CC: This is a 58 year old female with a history of [...] allergies. PAST MEDICAL HISTORY: PAST MEDICAL HISTORY 03/2007: Breast cancer (HCC) Comment: Rt. 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 PHYSICAL EXAM: Vitals: BP 128/86 Pulse (!) 58 Temp 36.1 ?C (97 ?F) (Temporal) Resp 18 Wt 58.1 kg (128 lb 1.4 oz) LMP 08/29/2013 SpO2 100% BMI 20.68 kg/m? General appearance: Well appearing, alert, in [...] or tenderness. Peripheral pulses: Normal. RADIOLOGIC DATA: 05/07/2023 Bilateral breast MRI ([facility]) No MRI evidence of malignancy. Routine follow-up is recommended in 1 year. 11/22/2018 Right breast and axillary ultrasound ([facility]) Redemonstration of 2 [...] 1. 174.9 Breast cancer Stage I (T1,N0,M0) ER/MN pos, HER2 neg right breast cancer diagnosed March of 2007. The patient presented with an abnormal mammogram in February 2007 revealing microcalcifications in the left breast. 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 She sought a second opinion at the [facility]. A bilateral breast MRI was done which showed an occult tumor in the right breast which was biopsy proven to be stage I ER/MN positive low-grade ductal carcinoma. The patient underwent bilateral mastectomies with (more content not included)... Normal [facility] Urinalysis - DIPSTICKon 11-3 Appearance (U) clear happin! Other Bilirubin Ql (U) Negative Covacsis Other Color (U) yellow Mosec, [employer] Secretary Other Glucose Ql (U) Negative happin! Other Hemoglobin Ql (U) Negative NTQ-Data Other Ketones Ql (U) Negative happin! Other Leukocyte esterase Test strip Ql (U) Negative Mosec, [employer] Secretary Other Nitrite Ql (U) Negative happin! Other pH (U) 6.5 [pH] Mosec, [employer] Secretary Other Protein Ql (U) + happin! Other Specific gravity (U) [Rel density] 1.000 Mosec, [employer] Secretary Other Urobilinogen (U) [Mass/Vol] off chart Mosec, [employer] Secretary Other Urinalysis - DIPSTICK Mosec, [employer] Secretary Other Urinalysis - DIPSTICKon 11-2 Appearance (U) cloudy happin! Other Bilirubin Ql (U) Negative Covacsis Other Color (U) dark yellow Mosec, [employer] Secretary Other Glucose Ql (U) Negative happin! Other Hemoglobin Ql (U) +++ NTQ-Data Other Ketones Ql (U) Negative happin! Other Leukocyte esterase Test strip Ql (U) + Mosec, [employer] Secretary Other Nitrite Ql (U) Negative happin! Other pH (U) off chart Mosec, [employer] Secretary Other Protein Ql (U) + happin! Other Specific gravity (U) [Rel density] 1.030 Mosec, [employer] Secretary Other Urobilinogen (U) [Mass/Vol] 0.2 mg/dL Mosec, [employer] Secretary Other Urinalysis - DIPSTICK Mosec, [employer] Secretary Other METHYLMALONIC ACID (MMA)on 0 01-19-2022 Methylmalonic Acid, Serum 103 nmol/L Normal 0-378 [facility] Comment on above: Performed By: #### C BC #### [facility] [address] [place] [address] Dr. Ester Jensen CBC AUTO DIFFon 01-15-2022 BASO # 0.0 103/ul Normal 0.0-0.1 [facility] Comment on above: Performed By: #### C BC #### [facility] [address] [place] [address] Dr. Ester Jensen Basophils/100 WBC (Bld) 1.2 % Normal 0.2-2.0 [facility] Comment on above: Performed By: #### C BC #### [facility] [address] [place] [address] Dr. Ester Jensen EO # 0.1 103/ul Normal 0.0-0.7 [facility] Comment on above: Performed By: #### C BC #### [facility] [address] [place] [address] Dr. Ester Jensen Eosinophils/100 WBC (Bld) 3.4 % Normal 0.9-7.0 [facility] Comment on above: Performed By: #### C BC #### [facility] [address] [place] [address] Dr. Ester Jensen Erythrocyte distribution width (RBC) [Ratio] 12.1 % Normal 11.0-15.0 [facility] Comment on above: Performed By: #### C BC #### [facility] [address] [place] [address] Dr. Ester Jensen Hematocrit (Bld) [Volume fraction] 38.9 % Normal 36.0-48.0 [facility] Comment on above: Performed By: #### C BC #### [facility] [address] [place] [address] Dr. Ester Jensen Hemoglobin (Bld) [Mass/Vol] 12.5 g/dL Normal 12.0-16.0 [facility] Comment on above: Performed By: #### C BC #### [facility] [address] [place] [address] Dr. Ester Jensen IG # 0.00 10e3/ul Normal 0.00-0.03 [facility] Comment on above: Performed By: #### C BC #### [facility] [address] [place] [address] Dr. Ester Jensen IG % 0.0 % Normal 0.0-0.5 [facility] Comment on above: Performed By: #### C BC #### [facility] [address] [place] [address] Dr. Ester Jensen LYMPH # 1.7 103/ul Normal 1.2-3.8 [facility] [facility] Comment [facility] above: Performed By: #### C BC #### [facility] [address] [place] [address] Dr. Ester Jensen Lymphocytes/100 WBC (Bld) 50.6 % Normal 20.5-60.0 [facility] Comment on above: Performed By: #### C BC #### [facility] [address] [place] [address] Dr. Ester Jensen MANUAL DIFF REQ NO Normal [facility] Comment on above: Performed By: #### C BC #### [facility] [address] [place] [address] Dr. Ester Jensen MCH (RBC) [Entitic mass] 32.1 pg Normal 26.7-34.0 [facility] Comment on above: Performed By: #### C BC #### [facility] [address] [place] [address] Dr. Ester Jensen MCHC (RBC) [Mass/Vol] 32.1 g/dL Normal 29.9-35.2 [facility] Comment on above: Performed By: #### C BC #### [facility] [address] [place] [address] Dr. Ester Jensen MCV (RBC) [Entitic vol] 99.7 fL Critically high 81.0-99.0 [facility] Comment on above: Performed By: #### C BC #### [facility] [address] [place] [address] Dr. Ester Jensen MONO # 0.3 103/ul Normal 0.3-0.8 [facility] Comment on above: Performed By: #### C BC #### [facility] [address] [place] [address] Dr. Ester Jensen Monocytes/100 WBC (Bld) 9.5 % Normal 1.7-12.0 [facility] Comment on above: Performed By: #### C BC #### [facility] [address] [place] [address] Dr. Ester Jensen NEUT # 1.2 103/ul Critically low 1.4-6.5 [facility] Comment on above: Performed By: #### C BC #### [facility] [address] [place] [address] Dr. Ester Jensen Neutrophils/100 WBC (Bld) 35.3 % Critically low 43.0-75.0 [facility] Comment on above: Performed By: #### C BC #### [facility] [address] [place] [address] Dr. Ester Jensen Platelet mean volume (Bld) [Entitic vol] 11.0 fL Normal 9.5-13.5 [facility] Comment on above: Performed By: #### C BC #### [facility] [address] [place] [address] Dr. Ester Jensen PLT 165 103/ul Normal 150-450 [facility] Comment on above: Performed By: #### C BC #### [facility] [address] [place] [address] Dr. Ester Jensen RBC 3.90 106/ul Critically low 4.20-5.[address] [facility] Comment on above: Performed By: #### C BC #### [facility] [address] [place] [address] Dr. Ester Jensen WBC 3.3 103/ul Critically low 4.0-11.0 [facility] Comment on above: Performed By: #### C BC #### [facility] [address] [place] [address] Dr. Ester Jensen VIT B12 AND FOLATEon 022 Cobalamin (Vitamin B12) [Mass/Vol] 1293.0 pg/mL Critically high 193.0-986.0 [facility] Comment on above: Performed By: #### C BC #### [facility] [address] [place] [address] Dr. Ester Jensen FOLATE 21.40 ng/mL Normal 8.60-58.90 [facility] Comment on above: Performed By: #### C BC #### [facility] [address] [place] [address] Dr. Ester Jensen CBC AUTO DIFFon 10-03-2021 BASO # 0.0 103/ul Normal 0.0-0.1 [facility] Comment on above: Performed By: #### C BC #### [facility] [address] [place] [address] Dr. Ester Jensen Basophils/100 WBC (Bld) 1.4 % Normal 0.2-2.0 [facility] Comment on above: Performed By: #### C BC #### [facility] [address] [place] [address] Dr. Ester Jensen EO # 0.1 103/ul Normal 0.0-0.7 [facility] Comment on above: Performed By: #### C BC #### [facility] [address] [place] [address] Dr. Ester Jensen Eosinophils/100 WBC (Bld) 2.0 % Normal 0.9-7.0 [facility] Comment on above: Performed By: #### C BC #### [facility] [address] [place] [address] Dr. Ester Jensen Erythrocyte distribution width (RBC) [Ratio] 11.9 % Normal 11.0-15.0 [facility] Comment on above: Performed By: #### C BC #### [facility] [address] [place] [address] Dr. Ester Jensen Hematocrit (Bld) [Volume fraction] 39.9 % Normal 36.0-48.0 [facility] Comment on above: Performed By: #### C BC #### [facility] [address] [place] [address] Dr. Ester Jensen Hemoglobin (Bld) [Mass/Vol] 13.0 g/dL Normal 12.0-16.0 [facility] Comment on above: Performed By: #### C BC #### [facility] [address] [place] [address] Dr. Ester Jensen IG # 0.01 10e3/ul Normal 0.00-0.03 [facility] Comment on above: Performed By: #### C BC #### [facility] [address] [place] [address] Dr. Ester Jensen IG % 0.3 % Normal 0.0-0.5 [facility] Comment on above: Performed By: #### C BC #### [facility] [address] [place] [address] Dr. Ester Jensen LYMPH # 1.1 103/ul Critically low 1.2-3.8 [facility] Comment on above: Performed By: #### C BC #### [facility] [address] [place] [address] Dr. Ester Jensen Lymphocytes/100 WBC (Bld) 37.2 % Normal 20.5-60.0 [facility] Comment on above: Performed By: #### C BC #### [facility] [address] [place] [address] Dr. Ester Jensen MANUAL DIFF REQ NO Normal [facility] Comment on above: Performed By: #### C BC #### [facility] [address] [place] [address] Dr. Ester Jensen MCH (RBC) [Entitic mass] 32.9 pg Normal 26.7-34.0 [facility] Comment on above: Performed By: #### C BC #### [facility] [address] [place] [address] Dr. Ester Jensen MCHC (RBC) [Mass/Vol] 32.6 g/dL Normal 29.9-35.2 [facility] Comment on above: Performed By: #### C BC #### [facility] [address] [place] [address] Dr. Ester Jensen MCV (RBC) [Entitic vol] 101.0 fL Critically high 81.0-99.0 [facility] Comment on above: Performed By: #### C BC #### [facility] [address] [place] [address] Dr. Ester Jensen MONO # 0.4 103/ul Normal 0.3-0.8 [facility] Comment on above: Performed By: #### C BC #### [facility] [address] [place] [address] Dr. Ester Jensen Monocytes/100 WBC (Bld) 12.5 % Critically high 1.7-12.0 [facility] Comment on above: Performed By: #### C BC #### [facility] [address] [place] [address] Dr. Ester Jensen NEUT # 1.4 103/ul Normal 1.4-6.5 [facility] Comment on above: Performed By: #### C BC #### [facility] [address] [address] [address] Ester Jensen Neutrophils/100 WBC (Bld) 46.6 % Normal 43.0-75.0 [facility] Comment on above: Performed By: #### C BC #### [facility] [address] [address] [address] Ester Jensen Platelet mean volume (Bld) [Entitic vol] 10.9 fL Normal 9.5-13.5 [facility] Comment on above: Performed By: #### C BC #### [facility] [address] [place] [address] Dr. Ester Jensen PLT 157 103/ul Normal 150-450 [facility] Comment on above: Performed By: #### C BC #### [facility] [address] [place] [address] Dr. Ester Jensen RBC 3.95 106/ul Critically low 4.20-5.[address] [facility] Comment on above: Performed By: #### C BC #### [facility] [address] [address] [address] Ester Jensen WBC 3.0 103/ul Critically low 4.0-11.0 [facility] Comment on above: Performed By: #### C BC #### [facility] [address] [place] [address] Dr. Ester Jensen LIPID PROFILEon 10-03-2021 CHOL-HDL RATIO NORM SEE BELOW Normal [facility] Comment on above: Result Comment: 3.3 - 4.4 LOW RISK 4.4 - 7.1 AVERAGE RISK 7.1 - 11.0 MODERATE RISK >11.0 HIGH RISK Performed By: #### B MP, LIPID, TSH #### [facility] [address] [place] [address] Dr. Ester Jensen Cholesterol [Mass/Vol] 201 mg/dL Critically high <=200 [facility] Comment on above: Performed By: #### B MP, LIPID, TSH #### [facility] [address] [address] [address] Ester Jensen Cholesterol in HDL [Mass/Vol] 86 mg/dL Critically high 40-60 [facility] Comment on above: Performed By: #### B MP, LIPID, TSH #### [facility] [address] [place] [address] Dr. Ester Jensen Cholesterol in LDL [Mass/Vol] 106.6 mg/dL Normal [facility] Comment on above: Performed By: #### B MP, LIPID, TSH #### [facility] [address] [place] [address] Dr. Ester Jensen Cholesterol.total/Ch olesterol in HDL [Mass ratio] 2.3 {ratio} Normal [facility] Comment on above: Performed By: #### B MP, LIPID, TSH #### [facility] [address] [place] [address] Dr. Ester Jensen HDL NORMAL > or = 60 mg/dl - LO W CARDIOVASCULAR RISK <40 mg/dl - HIGH CARDIOVASCULAR RISK Normal [facility] Comment on above: Performed By: #### B MP, LIPID, TSH #### [facility] [address] [place] [address] Dr. sEter Jensen LDL CALC NORMAL SEE BELOW Normal [facility] Comment on above: Result Comment: <100 mg/dl OPTIMAL 100 - 129 mg/dl NEAR OR ABOVE OPTIMAL 130 - 159 mg/dl BORDERLINE HIGH 160 - 189 mg/dl HIGH >190 mg/dl VERY HIGH Performed By: #### B MP, LIPID, TSH #### [facility] [address] [place] [address] Dr. Ester Jensen Triglyceride [Mass/Vol] 42 mg/dL Normal <=150 [facility] Comment on above: Performed By: #### B MP, LIPID, TSH #### [facility] [address] [place] [address] Dr. Ester Jensen VLDL CALC 8.4 mg/dL Normal [facility] Comment on above: Performed By: #### B MP, LIPID, TSH #### [facility] [address] [place] [address] Dr. Ester Jensen PROF CHEM 8 (BAS METB)on Anion gap [Moles/Vol] 10.5 mmol/L Normal [facility] Comment on above: Performed By: #### B MP, LIPID, TSH #### [facility] [address] [address] [address] Ester Jensen Calcium [Mass/Vol] 8.5 mg/dL Normal 8.5-10.1 [facility] Comment on above: Performed By: #### B MP, LIPID, TSH #### [facility] [address] [address] [address] Ester Jensen Chloride [Moles/Vol] 102 mmol/L Normal 98-107 [facility] Comment on above: Performed By: #### B MP, LIPID, TSH #### [facility] [address] [place] [address] Dr. Ester Jensen CO2 [Moles/Vol] 29.5 mmol/L Normal 21.0-32.0 [facility] Comment on above: Performed By: #### B MP, LIPID, TSH #### [facility] [address] [place] [address] Dr. Ester Jensen Creatinine [Mass/Vol] 0.82 mg/dL Normal 0.55-1.02 [facility] Comment on above: Performed By: #### B MP, LIPID, TSH #### [facility] [address] [place] [address] Dr. Ester Jensen EGFR-AF CITIZEN OF [place] >60 Normal >=60 [facility] Comment on above: Performed By: #### B MP, LIPID, TSH #### [facility] [address] [place] [address] Dr. Ester Jensen EGFR-NON AF CITIZEN OF [place] >60 Normal >=60 [facility] Comment on above: Performed By: #### B MP, LIPID, TSH #### [facility] [address] [place] [address] Dr. Ester Jensen Glucose [Mass/Vol] 92 mg/dL Normal 74-106 [facility] Comment on above: Performed By: #### B MP, LIPID, TSH #### [facility] [address] [place] [address] Dr. Ester Jensen Potassium [Moles/Vol] 4.0 mmol/L Normal 3.5-5.1 [facility] Comment on above: Performed By: #### B MP, LIPID, TSH #### [facility] [address] [place] [address] Dr. Ester Jensen Sodium [Moles/Vol] 138 mmol/L Normal 136-145 [facility] Comment on above: Performed By: #### B MP, LIPID, TSH #### [facility] [address] [place] [address] Dr. Ester Jensen Urea nitrogen [Mass/Vol] 11.0 mg/dL Normal 7.0-18.0 [facility] Comment on above: Performed By: #### B MP, LIPID, TSH #### [facility] [address] [place] [address] Dr. Ester Jensen Urea nitrogen/Creatinine [Mass ratio] 13.4 mg/mg Normal [facility] Comment on above: Performed By: #### B MP, LIPID, TSH #### [facility] [address] [place] [address] Dr. Ester Jensen TSHon 10-03-2021 TSH 1.803 uIU/mL Normal 0.358-3.740 [facility] Comment on above: Performed By: #### B MP, LIPID, TSH #### [facility] [address] [place] [address] Dr. Ester Jensen TSH RANGE SEE BELOW Normal [facility] Comment on above: Result Comment: <0.3 4 UIU/ml HYPERTHYROID 0.34-5.60 UIU/ml EUTHYROID >5.60 UIU/ml HYPOTHYROID Performed By: #### B MP, LIPID, TSH #### [facility] [address] [place] [address] Dr. Ester Jensen CBC AUTO DIFFon 07-28-2021 BASO # 0.0 103/ul Normal 0.0-0.1 [facility] Comment on above: Performed By: #### C BC #### [facility] [address] [place] [address] Dr. Ester Jensen Basophils/100 WBC (Bld) 1.1 % Normal 0.2-2.0 [facility] Comment on above: Performed By: #### C BC #### [facility] [address] [place] [address] Dr. Ester Jensen EO # 0.1 103/ul Normal 0.0-0.7 [facility] Comment on above: Performed By: #### C BC #### [facility] [address] [place] [address] Dr. Ester Jensen Eosinophils/100 WBC (Bld) 2.5 % Normal 0.9-7.0 [facility] Comment on above: Performed By: #### C BC #### [facility] [address] [place] [address] Dr. Ester Jensen Erythrocyte distribution width (RBC) [Ratio] 12.2 % Normal 11.0-15.0 [facility] Comment on above: Performed By: #### C BC #### [facility] [address] [place] [address] Dr. Ester Jensen Hematocrit (Bld) [Volume fraction] 38.7 % Normal 36.0-48.0 [facility] Comment on above: Performed By: #### C BC #### [facility] [address] [place] [address] Dr. Ester Jensen Hemoglobin (Bld) [Mass/Vol] 12.6 g/dL Normal 12.0-16.0 [facility] Comment on above: Performed By: #### C BC #### [facility] [address] [place] [address] Dr. Ester Jensen IG # 0.01 10e3/ul Normal 0.00-0.03 [facility] Comment on above: Performed By: #### C BC #### [facility] [address] [place] [address] Dr. Ester Jensen IG % 0.3 % Normal 0.0-0.5 [facility] Comment on above: Performed By: #### C BC #### [facility] [address] [place] [address] Dr. Ester Jensen LYMPH # 1.6 103/ul Normal 1.2-3.8 [facility] Comment on above: Performed By: #### C BC #### [facility] [address] [place] [address] Dr. Ester Jensen Lymphocytes/100 WBC (Bld) 43.6 % Normal 20.5-60.0 [facility] Comment on above: Performed By: #### C BC #### [facility] [address] [place] [address] Dr. Ester Jensen MANUAL DIFF REQ NO Normal [facility] Comment on above: Performed By: #### C BC #### [facility] [address] [place] [address] Dr. Ester Jensen MCH (RBC) [Entitic mass] 32.8 pg Normal 26.7-34.0 [facility] Comment on above: Performed By: #### C BC #### [facility] [address] [place] [address] Dr. Ester Jensen MCHC (RBC) [Mass/Vol] 32.6 g/dL Normal 29.9-35.2 [facility] Comment on above: Performed By: #### C BC #### [facility] [address] [place] [address] Dr. Ester Jensen MCV (RBC) [Entitic vol] 100.8 fL Critically high 81.0-99.0 [facility] Comment on above: Performed By: #### C BC #### [facility] [address] [place] [address] Dr. Ester Jensen MONO # 0.3 103/ul Normal 0.3-0.8 [facility] Comment on above: Performed By: #### C BC #### [facility] [address] [place] [address] Dr. Ester Jensen Monocytes/100 WBC (Bld) 9.3 % Normal 1.7-12.0 [facility] Comment on above: Performed By: #### C BC #### [facility] [address] [place] [address] Dr. Ester Jensen NEUT # 1.6 103/ul Normal 1.4-6.5 [facility] Comment on above: Performed By: #### C BC #### [facility] [address] [address] [address] Ester Jensen Neutrophils/100 WBC (Bld) 43.2 % Normal 43.0-75.0 [facility] Comment on above: Performed By: #### C BC #### [facility] [address] [address] [address] Ester Jensen Platelet mean volume (Bld) [Entitic vol] 11.3 fL Normal 9.5-13.5 [facility] Comment on above: Performed By: #### C BC #### [facility] [address] [address] [address] Ester Jensen PLT 153 103/ul Normal 150-450 [facility] Comment on above: Performed By: #### C BC #### [facility] [address] [address] [address] Ester Jensen RBC 3.84 106/ul Critically low 4.20-5.[address] [facility] Comment on above: Performed By: #### C BC #### [facility] [address] [address] [address] Ester Jensen WBC 3.7 103/ul Critically low 4.0-11.0 [facility] Comment on above: Performed By: #### C BC #### [facility] [address] [address] [address] Ester Jensen TRANSGLUTAMINASE IGAon 05-10 t-Transglutaminase (tTG) IgA <2 Normal 0-3 [facility] Comment on above: Result Comment: Nega tive 0 - 3 Weak Positive 4 - 10 Positive >10 . Tissue Transglutaminase (tTG) has been identified as the endomysial antigen. Studies have demonstr- ated that endomysial IgA antibodies have over 99% specificity for gluten sensitive enteropathy. Performed By: #### T MARIYA #### [facility] [address] [address] [address] Ester Jensen TRANSGLUTAMINASE IGGon 05-10 t-Transglutaminase (tTG) IgG 3 U/mL Normal 0-5 [facility] Comment on above: Result Comment: Nega tive 0 - 5 Weak Positive 6 - 9 Positive >9 Performed By: #### C BC #### [facility] [address] [address] [address] Ester Jensen NM HEPATOBILIARY SCAN W [...] PAULETTE SILVA Date: 2021-04-18 17:13 Normal [facility] CBC W MANUAL DIFFon 04-08-20 21 ATYPICAL LYMPH # 0.08 103/ul Normal [facility] Comment on above: Performed By: #### C VEL #### [facility] [address] [address] [address] Ester Jensen ATYPICAL LYMPH % 3 % Normal [facility] Comment on above: Performed By: #### C VEL #### [facility] [address] [address] [address] Ester Jensen BAND # Normal 0.0-0.3 [facility] Comment on above: Performed By: #### C VEL #### [facility] [address] [address] [address] Ester Jensen BAND % Normal 0-5 [facility] Comment on above: Performed By: #### C VEL #### [facility] [address] [address] [address] Ester Jensen BASOM # 0.00 103/ul Normal 0.00-0.10 [facility] Comment on above: Performed By: #### C BCBRENDAN #### [facility] [address] [place] [address] Dr. Ester Jensen BASOM % 0.0 % Critically low 0.2-2.0 [facility] Comment on above: Performed By: #### C BCBRENDAN #### [facility] [address] [place] [address] Dr. Ester Jensen BLAST # Normal [facility] Comment on above: Performed By: #### C BCBRENDAN #### [facility] [address] [place] [address] Dr. Ester Jensen BLAST % Normal [facility] Comment on above: Performed By: #### C BCBRENDAN #### [facility] [address] [place] [address] Dr. Ester Jensen CORRECTED WBC Normal 4.0-11.0 [facility] Comment on above: Performed By: #### C BCBRENDAN #### [facility] [address] [place] [address] Dr. Ester Jensen EOS # 0.05 103/ul Normal 0.00-0.70 [facility] Comment on above: Performed By: #### C BCBRENDAN #### [facility] [address] [place] [address] Dr. Ester Jensen EOS% 2.0 % Normal 0.9-7.0 [facility] Comment on above: Performed By: #### C BCBRENDAN #### [facility] [address] [place] [address] Dr. Ester Jensen HCT 40.2 % Normal 36.0-48.0 [facility] Comment on above: Performed By: #### C BCBRENDAN #### [facility] [address] [place] [address] Dr. Ester Jensen HGB 13.0 g/dl Normal 12.0-16.0 [facility] Comment on above: Performed By: #### C VEL #### [facility] [address] [place] [address] Dr. Ester Jensen LYMPHM # 1.20 103/ul Normal 1.20-3.80 [facility] Comment on above: Performed By: #### C VEL #### [facility] [address] [place] [address] Dr. Ester Jensen LYMPHM% 46.0 % Normal 20.5-60.0 [facility] Comment on above: Performed By: #### C VEL #### [facility] [facility] [address] [place] [address] Dr. Ester Jensen MCH 31.8 pg Normal 26.7-34.0 [facility] Comment on above: Performed By: #### C VEL #### [facility] [address] [place] [address] Dr. Ester Jensen MCHC 32.3 g/dl Normal 29.9-35.2 [facility] Comment on above: Performed By: #### C VEL #### [facility] [address] [place] [address] Dr. Ester Jensen MCV 98.3 fL Normal 81.0-99.0 [facility] Comment on above: Performed By: #### C VEL #### [facility] [address] [place] [address] Dr. Ester Jensen METAMYELOCYTE # Normal [facility] Comment on above: Performed By: #### C VEL #### [facility] [address] [place] [address] Dr. Ester Jensen METAMYELOCYTE % Normal [facility] Comment on above: Performed By: #### C VEL #### [facility] [address] [place] [address] Dr. Ester Jensen MONOM# 0.31 103/ul Normal 0.30-0.80 [facility] Comment on above: Performed By: #### C VEL #### [facility] [address] [place] [address] Dr. Ester Jensen MONOM% 12.0 % Normal 1.7-12.0 [facility] Comment on above: Performed By: #### C VEL #### [facility] [address] [address] [address] Ester Jensen MPV 11.2 fL Normal 9.5-13.5 [facility] Comment on above: Performed By: #### C VEL #### [facility] [address] [place] [address] Dr. Ester Jensen MYELOCYTE # Normal [facility] Comment on above: Performed By: #### C VEL #### [facility] [address] [address] [address] Ester Jensen MYELOCYTE % Normal [facility] Comment on above: Performed By: #### C VEL #### [facility] [address] [place] [address] Dr. Ester Jensen NRBC Normal [facility] Comment on above: Performed By: #### C VEL #### [facility] [address] [place] [address] Dr. Ester Jensen PLT 161 103/ul Normal 150-450 [facility] Comment on above: Performed By: #### C VEL #### [facility] [address] [place] [address] Dr. Ester Jensen RBC 4.09 106/ul Critically low 4.20-5.[address] [facility] Comment on above: Performed By: #### C VEL #### [facility] [address] [place] [address] Dr. Ester Jensen RDW 11.9 % Normal 11.0-15.0 [facility] Comment on above: Performed By: #### C VEL #### [facility] [address] [place] [address] Dr. Ester Jensen SEG # 0.96 103/ul Critically low 1.40-6.[address] [facility] Comment on above: Performed By: #### C VEL #### [facility] [address] [place] [address] Dr. Ester Jensen SEG % 37.0 % Critically low 43.0-75.0 [facility] Comment on above: Performed By: #### C VEL #### [facility] [address] [place] [address] [address] [address] Ester Jensen WBC 2.6 103/ul Critically low 4.0-11.0 [facility] Comment on above: Performed By: #### C BCMAN #### [facility] [address] [place] [address] [id number] [address] Ester Jensen PERIPHERAL SMEARon Pathologist Cyto stain Nom (Cvx/Vag) [ID] DR. USHA VALLECILLO Normal [facility] Comment on above: Result Comment: REVI [...] UNICELLULAR DISORDERS. CLINICAL CORRELATION IS RECOMMENDED CPT 64163 Performed By: #### P ERSMR #### [facility] [address] [place] [address] Dr. Ester Jensen VITAMIN B12on 04-08-2021 Cobalamin (Vitamin B12) [Mass/Vol] 448.0 pg/mL Normal 239.0-931.0 [facility] Comment on above: Performed By: #### V ITB12 #### [facility] [address] [place], [place] [id number] Dr. Ester Jensen Vital Signs Date Time Vital Sign Value Performing Clinician Facility 12-11-2024 09:56-0400 Body height 170.2 cm Shelby Cruz [employer] Work Phone: [facility] 12-11-2024 09:56-0400 Body mass index (BMI) [Ratio] 19.42 kg/m2 Shelby Cruz [employer] Work Phone: [facility] 12-11-2024 09:56-0400 Body weight 56.25 kg Shelby Cruz [employer] Work Phone: [facility] 12-11-2024 09:56-0400 Diastolic blood pressure 66 mm[Hg] Shelby Cruz [employer] Work Phone: [facility] 12-11-2024 09:56-0400 Systolic blood pressure 114 mm[Hg] Shelby Cruz DO Work Phone: [facility] 07-03-2024 07:37-0500 Body height 170.18 cm Paulo Lawrence DO Work Phone: [facility] 07-03-2024 07:37-0500 Body weight 61.23 kg Paulo Lawrence DO Work Phone: [facility] 01-17-2024 14:01-0400 Body mass index (BMI) [Ratio] 20.68 kg/m2 Carol Wills MD Work Phone: [facility] 01-17-2024 14:01-0400 Body temperature 97 [degF] Carol Wills MD Work Phone: [facility] 01-17-2024 14:01-0400 Body weight 58.1 kg Carol Wills MD Work Phone: [facility] 01-17-2024 14:01-0400 Diastolic blood pressure 86 mm[Hg] Carol Wills MD Work Phone: [facility] 01-17-2024 14:01-0400 Heart rate 58 /min Carol Wills MD Work Phone: [facility] 01-17-2024 14:01-0400 Respiratory rate 18 /min Carol Wills MD Work Phone: [facility] 01-17-2024 14:01-0400 SaO2% (BldA) [Mass fraction] 100 % Carol Wills MD Work Phone: [facility] 01-17-2024 14:01-0400 Systolic blood pressure 128 mm[Hg] Carol Wills MD Work Phone: [facility] 01-11-2024 08:37-0400 Body height 170.18 cm [facility] 01-11-2024 08:37-0400 Body mass index (BMI) [Ratio] 19.8 kg/m2 [facility] 01-11-2024 08:37-0400 Body weight 57.37 kg [facility] 01-11-2024 08:37-0400 Diastolic blood pressure 71 mm[Hg] [facility] 01-11-2024 08:37-0400 Heart rate 70 /min [facility] 01-11-2024 08:37-0400 Respiratory rate 12 /min [facility] 01-11-2024 08:37-0400 Systolic blood pressure 100 mm[Hg] [facility] 05-07-2023 10:14-0500 Body height 170.18 cm DO Paulo Ball Work Phone: [facility] 05-07-2023 10:14-0500 Body weight 56.69 kg DO Paulo Ball Work Phone: [facility] 04-21-2023 11:15-0500 Body height 171.45 cm Paulo Ball Other [facility] [employer] Other 04-21-2023 11:15-0500 Body mass index (BMI) [Ratio] 19.75 kg/m2 Paulo Ball Other [facility] [employer] Other 04-21-2023 11:15-0500 Body weight 58.06 kg Paulo Ball Other [facility] [employer] Other 04-21-2023 11:15-0500 Diastolic blood pressure 89 mm[Hg] Paulo Ball Other [facility] [employer] Other 04-21-2023 11:15-0500 Respiratory rate 12 /min Paulo Ball Other [facility] [employer] Other 04-21-2023 11:15-0500 Systolic blood pressure 145 mm[Hg] Paulo Ball Other [facility] [employer] Other 01-07-2023 11:30-0400 Body height 171.45 cm Paulo Ball Other [facility] [employer] Other 01-07-2023 11:30-0400 Body mass index (BMI) [Ratio] 19.44 kg/m2 Paulo Ball Other [employer] Other 01-07-2023 11:30-0400 Body weight 57.15 kg Paulo Ball Other [employer] Other 01-07-2023 11:30-0400 Diastolic blood pressure 78 mm[Hg] Paulo Ball Other [employer] Other 01-07-2023 11:30-0400 Systolic blood pressure 115 mm[Hg] Paulo Ball Other [employer] Other 05-04-2022 14:43-0500 Body height 170.18 cm DO Paulo Ball Work Phone: [facility] 05-04-2022 14:43-0500 Body weight 57.6 kg DO Paulo Ball Work Phone: [facility] 04-13-2022 11:30-0500 Body height 171.45 cm Rafi Amador Other [employer] Other 04-13-2022 11:30-0500 Body mass index (BMI) [Ratio] 19.75 kg/m2 Rafi Amador Other [employer] Other 04-13-2022 11:30-0500 Body weight 58.06 kg Rafi Amador Other [employer] Other 04-13-2022 11:30-0500 Diastolic blood pressure 80 mm[Hg] Rafi Amador Other [employer] Other 04-13-2022 11:30-0500 Systolic blood pressure 114 mm[Hg] Rafi Amador Other [employer] Other 11-10-2021 09:31-0400 Body height 167.6 cm Carol Wills MD Work Phone: [facility] 11-10-2021 09:31-0400 Body temperature 97.59 [degF] Carol Wills MD Work Phone: [facility] 11-10-2021 09:31-0400 Body weight 56.52 kg Carol Wills MD Work Phone: [facility] 11-10-2021 09:31-0400 Diastolic blood pressure 76 mm[Hg] Carol Wills MD Work Phone: [facility] 11-10-2021 09:31-0400 Heart rate 77 /min Carol Wills MD Work Phone: [facility] 11-10-2021 09:31-0400 Respiratory rate 16 /min Carol Wills MD Work Phone: [facility] 11-10-2021 09:31-0400 SaO2% (BldA) [Mass fraction] 100 % Carol Wills MD Work Phone: [facility] 11-10-2021 09:31-0400 Systolic blood pressure 117 mm[Hg] Carol Wills MD Work Phone: [facility] 04-22-2021 13:45-0500 Body height 171.45 cm Rafi Amador Other [employer] Other 04-22-2021 13:45-0500 Body mass index (BMI) [Ratio] 19.6 kg/m2 Rafi Amador Other [employer] Other 04-22-2021 13:45-0500 Body weight 57.61 kg Rafi Amador Other [employer] Other Encounters Encounter Date Encounter Type Care Provider Facility Start: 12-11-2024 End: 12-11-2024 Patient encounter status Shelby Cruz DO Work Phone: [facility] Start: 12-11-2024 End: 12-11-2024 Periodic preventive med est patient 40-64yrs Shelby Cruz DO Work Phone: [facility] Comment on above: Encounter for gyneco logical examination without abnormal finding (Primary Dx); Screening for malignant neoplasm of cervix; History of breast cancer Start: 12-11-2024 End: 12-11-2024 ambulatory SHELBY Rissa CRUZ Not Available Start: 11-06-2024 End: 11-06-2024 Bamboo flowsheet Rishi AVILA Work Phone: [facility] Start: 11-06-2024 End: 11-06-2024 Bamboo flowsheet Rishi Rubio PA Work Phone: [facility] Start: 11-06-2024 End: 11-06-2024 Office outpatient visit 25 minutes Rishi AVILA Work Phone: [facility] Comment on above: Arthralgia of right acromioclavicular joint (Primary Dx); Right shoulder pain, unspecified chronicity; Shoulder impingement, right Start: 11-06-2024 End: 11-06-2024 ambulatory RISHI RUBIO Not Available Start: 07-03-2024 End: 07-03-2024 Patient encounter procedure Paulo Ball DO Work Phone: [facility] [place] Work Phone: Start: 07-03-2024 End: 07-03-2024 ambulatory Paulo Ball DO Work Phone: [facility] Work Phone: Start: 05-18-2024 End: 05-18-2024 Telephone encounter Amanda Springer patents examiner/Oncology Comment on above: Bone desity report Start: 05-12-2024 End: 05-12-2024 Patient encounter procedure Paulo Ball DO Work Phone: [facility] Work Phone: Start: 05-12-2024 End: 05-12-2024 ambulatory Paulo Ball Facility:[facility] Start: 01-17-2024 End: 01-17-2024 Patient encounter procedure aCrol Wills MD Work Phone: Hematology/Oncology Start: 01-17-2024 End: 01-17-2024 ambulatory Carol Wills MD Work Phone: Hematology/Oncology Comment on above: Malignant neoplasm o f upper-outer quadrant of right breast in female, estrogen receptor positive (HCC) (Primary Dx); Encounter for osteoporosis screening in asymptomatic postmenopausal patient Start: 01-11-2024 End: 01-11-2024 ambulatory [facility] Work Phone: Start: 01-11-2024 End: 01-11-2024 Encounter for general adult medical examination without abnormal findings [facility] Start: 01-11-2024 End: 01-11-2024 Patient encounter procedure [facility] Work Phone: Start: 06-15-2023 End: 06-15-2023 ambulatory Paulo Lawrence Other [employer] Other Start: 06-15-2023 Office outpatient vi sit 15 minutes Paulo Howard [facility] Start: 05-10-2023 End: 05-10-2023 ambulatory Paulo Howard Other [employer] Other Start: 05-10-2023 Telephone encounter Paulo Lawrence [facility] Start: 05-07-2023 End: 05-07-2023 ambulatory DO Paulo Ball Work Phone: [facility] Work Phone: Start: 05-07-2023 End: 05-07-2023 Patient encounter procedure DO Paulo Ball Work Phone: [facility] [place] Work Phone: Start: 05-05-2023 End: 05-05-2023 ambulatory Paulo Ball Other [employer] Other Start: 05-05-2023 Office outpatient vi sit 15 minutes Paulo Ball [facility] Start: 04-29-2023 End: 04-29-2023 ambulatory Paulo Ball Other [employer] Other Start: 04-29-2023 Nursing evaluation o f patient and report Paulo Lawrence [facility] Start: 04-21-2023 End: 04-21-2023 ambulatory Paulo Ball Other [employer] Other Start: 04-21-2023 Office outpatient vi sit 15 minutes Paulo Ball [facility] Start: 04-21-2023 Telephone encounter Paulo Ball [facility] Start: 03-11-2023 End: 03-11-2023 ambulatory Paulo Ball Other [employer] Other Start: 03-11-2023 Telephone encounter Paulo Ball [facility] Start: 02-23-2023 End: 02-23-2023 ambulatory Paulo Ball Other [employer] Other Start: 02-23-2023 Telephone encounter Paulo Ball [facility] Start: 01-08-2023 End: 01-08-2023 ambulatory Paulo Ball Other [employer] Other Start: 01-08-2023 Telephone encounter Paulo Ball [facility] Start: 01-07-2023 End: 01-07-2023 ambulatory Paulo Ball Other [employer] Other Start: 01-07-2023 Encounter for genera l adult medical examination without abnormal findings Paulo Ball [facility] Start: 01-07-2023 Periodic preventive med est patient 40-64yrs Paulo Ball [facility] Start: 08-04-2022 End: 08-04-2022 ambulatory Paulo Ball Other [employer] Other Start: 08-04-2022 Telephone encounter Paulo Ball [facility] Start: 05-04-2022 End: 05-04-2022 ambulatory DO Paulo Lawrence Work Phone: [facility] Work Phone: Start: 05-04-2022 End: 05-04-2022 Patient encounter procedure DO Paulo Lawrence Work Phone: [facility] [place] Start: 04-13-2022 End: 04-13-2022 ambulatory Rafi Amador Other [employer] Other Start: 04-13-2022 Office outpatient vi sit 15 minutes Rafi Amador [facility] Start: 01-15-2022 End: 01-16-[address] PAULO LAWRENCE Facility:[facility] Start: 11-10-2021 End: 11-10-2021 ambulatory Carol Wills MD Work Phone: Hematology/Oncology Comment on above: Malignant neoplasm o f upper-outer quadrant of right breast in female, estrogen receptor positive (HCC) (Primary Dx); Ductal carcinoma in situ (DCIS) of left breast Start: 11-10-2021 End: 11-10-2021 Patient encounter procedure Carol Wills MD Work Phone: [facility] Start: 10-08-2021 Encounter for genera l adult medical examination without abnormal findings DR PAULO LAWRENCE [facility] Start: 10-03-2021 End: 10-04-[address] PAULO LAWRENCE Facility:[facility] Start: 10-03-2021 End: 10-04-2021 Encounter for general adult medical examination without abnormal findings DR PAULO LAWRENCE Facility:[facility] Start: 07-31-2021 Adult health examination Godwin Lawrence Other [employer] Other Start: 07-28-2021 End: 07-29-[address] PAULO LAWRENCE Facility:[facility] Start: 2021 End: 05-10-[address] Tessie AMADOR Facility:[facility] Start: 05-08-2021 End: 05-08-2021 ambulatory Rafi Amador Other [employer] Other Start: 05-08-2021 Telephone encounter Rafi Amador [facility] Start: 04-22-2021 End: 04-22-2021 ambulatory Rafi Amador Other [employer] Other Start: 04-22-2021 Office outpatient vi sit 15 minutes Rafi Amador [facility] Start: 04-18-2021 End: 04-19-[address] PAULO LAWRENCE Facility:[facility] Start: 04-08-2021 End: 04-09-[address] PAULO LAWRENCE Facility:[facility] Start: 09-16-2018 End: 09-17-2018 Patient encounter procedure DEFAULT PHYSICIAN Facility:[facility] Procedures Date Procedure Procedure Detail Performing Clinician Start: 11-06-2024 Arthrocentesis aspir &/inj major jt/bursa w/o us Rishi AVILA Work Phone: Start: 11-06-2024 Radex shoulder compl ete minimum 2 views Rishi AVILA Work Phone: Start: 07-03-2024 MRI of bilateral loretta asts with contrast Paulo Ball DO Work Phone: Start: 05-12-2024 Dual energy X-ray absorptiometry Paulo Ball DO Work Phone: Start: 12-06-2023 Microscopic observat ion [Identifier] in Cervix by Cyto stain Rishi AVILA Work Phone: Start: 05-07-2023 MRI of bilateral loretta asts with contrast DO Paulo [employer] Work Phone: Start: 05-04-2022 MRI of bilateral loretta asts with contrast DO Paulo Ball Work Phone: Start: 11-10-2021 Adult depression scr eening assessment Carol Wills MD Work Phone: Start: 04-26-2018 Screening for malign ant neoplasm of colon Paulo Lawrence Other Plan of Treatment Date Care Activity Detail Author Start: 11-25-2027 Screening for malign ant neoplasm of cervix [facility] Start: 12-05-2026 Screening for malign ant neoplasm of cervix Pap Smear [facility] Start: 12-14-2025 End: 12-14-2025 Patient encounter procedure 12/14/2025 9:30 AM EDT Office Visit [facility] [address] [place] [address] Shelby Cruz, [address] [place] [address] [facility] Start: 07-24-2025 End: 12-11-2025 MR Chest WO and W contrast IV MR chest w and wo contrast Imaging Routine History of breast cancer Expected: 07/24/2025, Expires: 12/11/2025 [facility] Comment on above: Expected: 07/24/2025 , Expires: 12/11/2025 Start: 01-29-2025 Influenza vaccination Influenza Vacc ine (#1) [facility] Start: 12-11-2024 End: 12-11-2024 Patient encounter procedure [facility] Start: 11-06-2024 End: 11-06-2024 Patient encounter procedure 11/06/2024 9:30 AM EDT Office Visit [facility] [address] [place] [id number] Rishi Rubio, PA [address] [place] [address] Right shoulder pain, unspecified chronicity [facility] Comment on above: Right shoulder pain, unspecified chronicity Start: 01-30-2024 Covid-19 Vaccine () Covid-19 Vaccine () [facility] Start: 01-30-2024 Influenza vaccination Influenza Vacc ine (#1) [facility] Start: 11-09-2023 DIABETES SCREEN [facility] Start: 11-09-2023 Diabetes Screening Diabetes Screenin g [facility] Start: 01-29-2023 Covid-19 Vaccine () Covid-19 Vaccine () [facility] Start: 11-10-2022 Adult depression screening assessment DEPRESSION SCREENING [facility] Start: 08-17-2021 COVID-19 VACCINE (4 - Booster for Pfizer series) COVID-19 VACCINE (4 - Booster for Pfizer series) [facility] Start: 2015 Pneumococcal Vaccine : 50+ (1 of 1 - PCV) Pneumococcal Vaccine: 50+ (1 of 1 - PCV) [facility] Start: 03-04-2014 Urine microalbumin profile DTaP,Tdap,Td Vaccine (1 - Tdap) [facility] Start: 2010 COLOGUARD (FIT-DNA) COLOGUARD (FIT-D NA) [facility] Start: 2010 Colonoscopy COLONOSCOPY [facility] Start: 2010 COLORECTAL CANCER SCREENING COLORECTAL CANCER SCREENING [facility] Start: [address] COLONOGRAPHY [facility] Start: 2010 FECAL OCCULT BLOOD FECAL OCCULT BLOO D [facility] Start: 2010 Lipid panel Lipid Screening [facility] Start: 2010 LIPID SCREEN LIPID SCREEN [facility] Start: 2010 Screening for malign ant neoplasm of colon [facility] Start: 2010 SIGMOIDOSCOPY SIGMOIDOSCOPY [facility] Start: 2005 Mammography MAMMOGRAM [facility] Start: 2005 Screening for malign ant neoplasm of breast [facility] Start: 1995 HPV TESTING HPV TESTING [facility] Start: 1986 PAP TESTING PAP TESTING [facility] Start: 1986 Screening for malign ant neoplasm of cervix Cervical Cancer Screening [facility] Start: 1984 Hepatitis B Vaccine (1 of 3 - 19+ 3-dose series) Hepatitis B Vaccine (1 of 3 - 19+ 3-dose series) [facility] Start: 1984 Urine microalbumin profile DTAP,TDAP,TD (1 - Tdap) [facility] Start: 1983 Anxiety Screening Anxiety Screening [facility] Start: 1983 Depression Screening Depression Scre ening [facility] Start: 1983 HEPATITIS C SCREENING HEPATITIS C [facility] Start: 1983 Hepatitis C screening Hepatitis C [facility] Start: 1983 HIV SCREENING HIV SCREENING [facility] Start: 1983 HIV screening HIV Screening [facility] Start: 1971 PNEUMOCOCCAL (1 - PCV) PNEUMOCOCCAL (1 - PCV) [facility] Start: 1965 Screening for malign ant neoplasm of colon [facility] Comprehensive metabo lic 2000 panel - Serum or Plasma [facility] End: 12-10-2022 Diagnostic mammography computer-aided detcj bi RADHA DIAGNOSTIC BILAT Radiology Routine Malignant neoplasm of upper-outer quadrant of right breast in female, estrogen receptor positive (HCC) 1 Occurrences starting 11/10/2021 until 12/10/2022 [facility] Work Phone: Comment on above: 1 Occurrences starti ng 11/10/2021 until 12/10/2022 End: 02-15-2025 DXA Skeletal system.axial Views for bone density DXA-AXIAL SKELETON Radiology Routine Encounter for osteoporosis screening in asymptomatic postmenopausal patient 1 Occurrences starting 01/17/2024 until 02/15/2025 [facility] Work Phone: Comment on above: 1 Occurrences starti ng 01/17/2024 until 02/15/2025 IGP, APT HPV,RFX 16/18,45 IGP, APT HPV,RFX 16/18,45 Lab Routine Screening for malignant neoplasm of cervix Ordered: 12/11/2024 [facility] [employer] Work Phone: Comment on above: Ordered: 12/11/2024 End: 02-15-2025 MR Breast - bilateral WO and W contrast IV MRI BREAST WO/W IVCON BILATERAL Radiology Routine Encounter for osteoporosis screening in asymptomatic postmenopausal patient Malignant neoplasm of upper-outer quadrant of right breast in female, estrogen receptor positive (HCC) 1 Occurrences starting 01/17/2024 until 02/15/2025 [facility] Comment on above: 1 Occurrences starti ng 01/17/2024 until 02/15/2025 End: 02-15-2025 MRI BREAST 3D POST PROCESSING MRI BREAST 3D POST PROCESSING Radiology Routine Encounter for osteoporosis screening in asymptomatic postmenopausal patient Malignant neoplasm of upper-outer quadrant of right breast in female, estrogen receptor positive (HCC) 1 Occurrences starting 01/17/2024 until 02/15/2025 [facility] Comment on above: 1 Occurrences starti ng 01/17/2024 until 02/15/2025 End: 12-10-2022 Mri breast without&with contrast w/cad bilateral MRI BREAST WO/W IVCON BILAT Radiology Routine Malignant neoplasm of upper-outer quadrant of right breast in female, estrogen receptor positive (HCC) 1 Occurrences starting 11/10/2021 until 12/10/2022 [facility] Work Phone: Comment on above: 1 Occurrences starti ng 11/10/2021 until 12/10/2022 [facility] Immunizations Immunization Date Immunization Notes Care Provider Fa cility 02-22-2024 influenza, seasonal, injectable, preservative free Shelby Cruz DO Work Phone: [facility] 02-22-2024 influenza virus vaccine, unspecified formulation Shelby Cruz DO Work Phone: [facility] 03-16-2023 influenza, injectabl e, quadrivalent, preservative free Rishi AVILA Work Phone: [facility] 03-16-2023 influenza virus vaccine, unspecified formulation Carol Wills MD Work Phone: [facility] 05-10-2022 COVID-19 Pfizer (Pediatric) Paulo Lawrence Other [facility] 03-09-2022 influenza, injectabl e, quadrivalent, preservative free Rishi AVILA Work Phone: [facility] 04-19-2021 COVID-19 mRNA, Comirnaty (Pfizer) DO Paulo Lawrence Work Phone: [facility] 03-09-2021 influenza virus vaccine, split virus (incl. purified surface antigen) Paulo Lawrence Other [employer] Other 03-09-2021 influenza virus vaccine, unspecified formulation [facility] 03-09-2021 influenza, injectabl e, quadrivalent, preservative free Rishi AVILA Work Phone: [facility] 08-21-2020 COVID-19 vaccine, ag e 12+ yr (PFIZER-BIONTECH - PURPLE TOP) Carol Wills MD Work Phone: [facility] 07-31-2020 COVID-19 vaccine, ag e 12+ yr (PFIZER-BIONTPrimeAgain,Inc - PURPLE TOP) Carol Wills MD Work Phone: [facility] 03-08-2020 influenza virus vaccine, split virus (incl. purified surface antigen) Paulo Lawrence Other [employer] Other 03-08-2020 influenza virus vaccine, unspecified formulation [facility] 03-08-2020 influenza, injectabl e, quadrivalent, preservative free Carol Wills MD Work Phone: [facility] 01-30-2020 influenza, injectabl e, quadrivalent, preservative free Rishi AVILA Work Phone: [facility] 08-01-2019 zoster vaccine recombinant Carol Wills MD Work Phone: [facility] 08-01-2019 zoster vaccine, live Benjami arnulfo Lawrence Other [facility] 05-03-2019 zoster vaccine recombinant Carol Wills MD Work Phone: [facility] 02-28-2019 influenza, injectabl e, quadrivalent, preservative free Rishi AVILA Work Phone: [facility] 02-25-2019 influenza, injectabl e, quadrivalent, preservative free Carol Wills MD Work Phone: [facility] 03-17-2018 influenza, injectabl e, quadrivalent, preservative free Carol Wills MD Work Phone: [facility] 02-07-2018 influenza, seasonal, injectable, preservative free Carol Wills MD Work Phone: [facility] 09-03-2017 seasonal influenza, intradermal, preservative free Carol Wills MD Work Phone: [facility] 02-24-2017 influenza, high dose seasonal, preservative-free Rishi AVILA Work Phone: [facility] 02-22-2017 influenza virus vaccine, split virus (incl. purified surface antigen) Paulo Lawrence Other [employer] Other 02-22-2017 influenza virus vaccine, unspecified formulation [facility] 02-22-2017 influenza, injectabl e, quadrivalent, preservative free Carol Wills MD Work Phone: [facility] 02-06-2016 influenza virus vaccine, split virus (incl. purified surface antigen) Paulo Lawrence Other [employer] Other 02-06-2016 influenza virus vaccine, unspecified formulation [facility] 02-06-2016 influenza, injectabl e, quadrivalent, preservative free Carol Wills MD Work Phone: [facility] 02-05-2016 influenza, injectabl e, quadrivalent, preservative free Rishi AVILA Work Phone: [facility] 08-27-2015 seasonal influenza, intradermal, preservative free Carol Wills MD Work Phone: [facility] 03-03-2015 influenza, injectabl e, quadrivalent, preservative free Carol Wills MD Work Phone: [facility] 03-27-2014 influenza virus vaccine, split virus (incl. purified surface antigen) Carol Wills MD Work Phone: [facility] 03-03-2014 tetanus and diphther ia toxoids, adsorbed, preservative free, for adult use (5 Lf of tetanus toxoid and 2 Lf of diphtheria toxoid) Paulo Lawrence Other [facility] 03-19-2013 tetanus and diphther ia toxoids, adsorbed, preservative free, for adult use (5 Lf of tetanus toxoid and 2 Lf of diphtheria toxoid) Paulo Lawrence Other [facility] 03-20-2008 influenza, seasonal, injectable, preservative free Carol Wills MD Work Phone: [facility] 04-16-2007 influenza, seasonal, injectable Carol Wills MD Work Phone: [facility] Payers Date Payer Category Payer Self-pay [id number] 2022 Blue [employer] Blue Shield BCBS [id number] 2020 Unknown 2020 Unknown [employer] BLUE ACCE SS PPO [id number] 2020-Present [phone] [address] [place] [address] PPO [id number] 1965 Unknown [id number]. 2.647 1965 Unknown [id number]. 2.593 1965 Unknown [id number] [id number]. 2.593 1965 Unknown [id number] 2.16.840.1.394329.3.579. 2.593 1965 Unknown [id number] 2.16.840.1.682128.3.579. 2.593 1965 Unknown [id number] [id number]. 2.593 1965 Unknown [id number] 2.16.840.1.429552.3.579. 2.593 1965 Unknown [id number] 2.16.840.1.794579.3.579. 2.1259 1965 Unknown [id number] 2.16.840.1.990562.3.579. 2.1259 1965 Unknown [id number] [id number]. 2.1259 1959 [facility] [id number] Private Health Insurance [employer] [id number] Private Health Insurance [facility] [id number] Unknown [place] BC/BS NICK[place] [id number] Unknown [id number]. 2.531 Unknown [id number]. 2.531 Social History Date Type Detail Facility Start: 09-16-2012 End: 11-24-2022 Tobacco smoking status NHIS Never smoked tobacco [facility] Start: 09-16-2012 End: 11-24-2022 Tobacco use and exposure Smokeless tobacco non-user [facility] Start: 11-10-2021 End: 01-17-2024 Alcohol intake Current non-drinker of alcohol (finding) [facility] Start: 1965 Sex Assigned At Female [facility] Start: 10-31-2021 End: 11-10-2021 Exposure to SARS-CoV-2 (event) Not sure [facility] Start: 01-17-2024 End: 12-11-2024 Sex Assigned At [facility] Start: 01-17-2024 End: 12-11-2024 History of Social function [facility] Adult Depression Screening Assessment 0 [facility] Start: 11-03-2021 Gender identity Identifies as female gender (finding) [facility] Start: 11-03-2021 Sexual orientation Heterosexual (finding) [facility] Start: 07-04-2024 Sex Female (finding) [facility] Start: 12-06-2023 End: 12-11-2024 Alcoholic beverage intake Current drinker of alcohol (finding) [facility] How often to you hav e a drink containing alcohol? Monthly or less [facility] How many standard drinks containing alcohol do you have on a typical day? 1 or 2 [facility] How often do you hav e 6 or more drinks on 1 occasion? Never [facility] Start: 12-01-2023 Alcohol Comment Social drinker [facility] Functional Status Date Assessment Result Facility 12-11-2024 Total score [AUDIT-C] 1 12/12/19 9:56 AM EDT Valerie Doan MA [facility] 12-11-2024 Patient Health [facility] ionnaire 2 item (PHQ-2) [Reported] [facility] Clinical Notes 04-22-2021 to 12-11-2024 Pat Pinon MA - 12/11/2024 10:00 AM EDTMattAUSTIN Guzmán - 11/06/2024 9:30 AM EDTTelephone Encounter - Amanda Springer RN - 05/18/2024 11:08 AM EST Note Date & Type Note Facility 12-11-2024 History of Present illness Narrative Images from the original note were not included. Shelby Cruz, DO Obstetrics and Gynecology Eulalia Cynthia Little 1965 12/11/24 [id number] Yearly Wellness Exam Chief Complaint Patient presents with Gynecologic Exam LMP: 2018 HRT: None Last pap 12-06-23 neg. Last breast MRI 07/03/24 [facility]. Denies breast, urinary, or bowel concerns. Breast Problem Wonders if [facility] would continue to order breast MRI. Dr. Wills retired, last saw him 11/2023. Visit Vitals BP 114/66 Ht 5' 7 Wt 124 lb BMI 19.42 kg/m OB Status Postmenopausal Smoking Status Never BSA 1.63 m OB History Para Term AB Living 3 3 3 SAB IAB Ectopic Multiple Live Births 3 # Outcome Date GA Lbr Jorge/2nd Weight Sex Type Anes PTL Lv 3 Para 7 lb 2 oz M Vag-Spont [place] 2 Para 7 lb 15 oz M Vag-Spont [place] 1 Para 7 lb 13 oz M Vag-Spont [place] Current Outpatient Medications Medication Sig Dispense Refill amoxicillin (Amoxil) 500 MG capsule TAKE 4 CAPSULES BY MOUTH ONE HOUR PRIOR TO PROCEDURE Synthroid 88 MCG tablet 88 mcg Cholecalciferol (VITAMIN D-3 PO) Vitamin D3 Cyanocobalamin (VITAMIN B-12 PO) Vitamin B12 Multiple Vitamins-Minerals (MULTIVITAMIN ADULTS PO) Multivitamin No current facility-administered medications for this visit. No Known Allergies Past Surgical History: Procedure Laterality Date BREAST BIOPSY 2006 ductal carcinoma in situ BREAST RECONSTRUCTION bilateral silicone implants- [place] DILATION AND CURETTAGE OF UTERUS 2012 EGD 05/2016 w/ biopsy ENDOMETRIAL CRYOABLATION 1992 KNEE ARTHROSCOPY W/ MENISCECTOMY Right 08/06/2023 W/ PLICA ; DR AMADOR MASTECTOMY 2006 TEMPOROMANDIBULAR JOINT SURGERY TONSILLECTOMY WISDOM TOOTH EXTRACTION Past Medical History: Diagnosis Date Breast cancer (HCC) 2006 LT breast DCIS/ RT breast stage 1, infiltrating ductal- bilateral mastectomy with reconstruction- [place] CTS (carpal tunnel syndrome) Disease of thyroid gland Fracture of hand Fracture, foot GERD (gastroesophageal reflux disease) Hypothyroidism Nasal obstruction LT Rotator cuff syndrome TMJ (dislocation of temporomandibular joint) ROS Const: Denies appetite change, fever, chills. Allergy: Denies medication reaction. Ocular: Denies visual acuity change. ENT: Denies hearing change. Endoc: Denies weight loss. Resp: Denies dyspnoea, wheezing. Cardiac: Denies angina, palpitations. GI: Denies nausea, vomiting. Haem: Denies bleeding. : Denies incontinence. MSK: Denies arthralgias, joint oedema. Derm: Denies rash, hair loss. Neuro: Denies ataxia, tremor. Also see HPI for elements of ROS documented therein and for details of positive findings, which shall supersede the foregoing. EXAM GENERAL EXAMINATION alert oriented well developed, well nourished. HEAD: normocephalic atraumatic. EYES: sclera anicteric. EARS: no obvious hearing deficit. NECK/THYROID: neck supple no cervical lymphadenopathy no thyromegaly. LYMPH NODES: no axillary, supraclavicular or inguinal adenopathy. SKIN: warm and dry. HEART: regular rate and rhythm. LUNGS: clear to auscultation bilaterally. CHEST:axillary nodes grossly normal. BREASTS:hx of bilateral reconstruction - implants - no skin changes - axilla negative ABDOMEN: soft, nontender, nondistended, no masses palpable. BACK: no costovertebral angle tenderness, no obvious scoliosis/kyphosis. 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 1 pelvic prolapse RECTAL:normal tone , no masses palpable , only small external hemorrhoids. EXTREMITIES no edema. NEUROLOGIC: alert and oriented. PSYCH: cooperative with exam. ICD-10-CM 1. Encounter for gynecological examination without abnormal finding Z01.419 Pelvic and breast exam completed. Findings of today's exam discussed with the patient. Continue MSBE. Ca/Vit D recommendations reviewed with the patient. The patient is to contact the office with any changes to her gynecological condition or any changes with breast or bleeding. The patient is to return in 1 year or as needed 2. Screening for malignant neoplasm of cervix Z12.4 IGP, APT HPV,RFX 16/18,45 Thinprep collected. Will notify patient if results are abnormal. 3. History of breast cancer Z85.3 MR chest w and wo contrast Order placed. She will schedule for the future. Entered by Pat Pinon MA acting as scribe for Dr. Shelby Cruz. Signature Pat Pinon MA Date 12/11/24 . Time 10:26 AM . The documentation recorded by the scribe accurately reflects the service(s) I personally performed and the decisions I made. Signature Munir DoddOMigel Date 12/11/24 Time 5:00PM. documented in this encounter [facility] 11-06-2024 History of Present illness Narrative Associated Order(s): L Inj/Asp: R subacromial bursa Post-Procedure Diagnose(s): Shoulder impingement, right Images from the original note were not included. Orthopedic Office note: NAME: Eulalia Little : 1965 (EST PT) (NEW PROBLEM) - (R) SHOULDER DISCOMFORT S/P INJURY 08/27/24 (10 WKS, 1 DAY) - WAS PLAYING PICKLEBALL AND NOTED PAIN THREW THE BALL XRAY (R) SHOULDER TODAY, 11/06/24 IN EPIC POSSIBLE (R) SHOULDER INJ ~20 YRS AGO (DR. AMADOR) ADMITS DIFFUSE DISCOMFORT - DENIES RADIATION. DENIES N/T. DENIES SWELLING. GOOD ROM - CAN BE PAINFUL. ADMITS CATCHING. UNABLE TO LIE ON (R) SIDE HS. DENIES WAKING HS. DENIES STIFFNESS / TIGHTNESS. SOME WEAKNESS. ADVIL PRN - WITH SOME RELIEF. DENIES ICING / HEATING. NO TOPICALS. (R) HANDED Shoulder Musculoskeletal Exam Inspection Right Right shoulder inspection is normal. Ecchymosis: none Peripheral edema: none Atrophy: none Masses: none Palpation Right Crepitus: no crepitus Increased warmth: none Tenderness: present Anterior shoulder: mild Posterior shoulder: mild AC joint: mild Sternoclavicular joint: none Rotator cuff: none Greater tuberosity: none Trapezius: none Medial scapula: none Superior pole of scapula: none Inferior pole of scapula: none Bicipital groove: mild Proximal biceps: none Distal biceps: none Lateral arm: mild Elbow: none Range of Motion Right Right shoulder range of motion is normal. Active ROM: normal. Passive ROM: normal. Passive ROM comment: pain with cross body motion. Right shoulder active abduction: + pain passing 90 degrees. Internal rotation: T12. Strength Right External rotation: 5/5. External rotation is not affected by pain. Internal rotation: 5/5. Internal rotation is not affected by pain. Abduction: 5/5. Abduction is not affected by pain. Biceps: 5/5. Triceps: 5/5. Neurovascular Right Radial pulse: normal and 2+ Capillary refill: <3 sec Axillary nerve sensory distribution: normal Scapula Right Right shoulder scapula is normal. Position: normal Winging: none Special Tests Right Rotator Cuff Signs Thompson test: positive Painful arc test: positive Biceps/porter Signs Speed's test: negative AC Joint Signs Active horizontal adduction pain: positive Single finger test: positive General Constitutional: appears stated age Neurological: alert and oriented x3 Orders Placed This Encounter Procedures L Inj/Asp This order was created via procedure documentation XR shoulder 2+ views right Is the patient ?: No Reason for exam:: Pain L Inj/Asp: R subacromial bursa on 11/06/2024 9:51 AM Indications: pain Details: 21 G needle, posterior approach Medications: 40 mg methylPREDNISolone acetate 40 MG/ML; 1 mL bupivacaine PF 0.5 % Outcome: tolerated well, no immediate complications Utilizing aseptic technique with universal precautions . Pt given injection Right Shoulder SA space (Code 74514 RT) Procedure, treatment alternatives, risks and benefits explained, specific risks discussed. Consent was given by the patient. Results - Imaging: - X-ray shows slight elevation and degenerative changes in the right shoulder ICD-10-CM 1. Arthralgia of right acromioclavicular joint M25.511 2. Right shoulder pain, unspecified chronicity M25.511 XR shoulder 2+ views right 3. Shoulder impingement, right M25.811 Assessment & Plan Right shoulder pain Exam noted for AC joint tenderness. There is a slight elevation on her x-ray and degenerative changes, but she has not had any recent fall or trauma. She has mild impingement AC joint pain. She has had this lingering discomfort for approximately 9 to 10 weeks. She has full range of motion and full rotator cuff strength without significant discomfort. Most of her pain occurs when laying on the right shoulder while sleeping and with certain activities. Treatment plan: A subacromial injection was discussed, which she has had in the past with relief. Activity modification was advised until expected relief within 5 to 10 days. If symptoms persist, an MRI will be considered for further evaluation. Follow-up: The patient will follow up in 4 weeks for reevaluation if still symptomatic. Questions answered in laymen terms at the bedside. The diagnosis, home exercise plan and any ongoing restrictions/ recommendations reviewed. If unable to be reached in office, I recommend evaluation at nearest Emergency Room if any symptoms worsened or new symptoms develop for requiring urgent evaluation. Visit was preformed using [employer]-corporate pilot speech recognition. documented in this encounter [facility] 05-18-2024 Telephone encounter Note BRM reviewed bone density report completed at [facility]. Pt to continue with calcium/vit D, as previously taking. Pt called and updated. She is agreeable to plan of care and denies any questions, needs or concerns at this time. Amanda Springer RN [facility] 05-18-2024 Miscellaneous Notes BRJaswant reviewed bone density report completed at [facility]. Pt to continue with calcium/vit D, as previously taking. Pt called and updated. She is agreeable to plan of care and denies any questions, needs or concerns at this time. Amanda Springer RN documented in this encounter [facility] 01-16-2024 Note HNO ID: [id number] Author: CAROL WILLS MD Service: ? Author Type: Physician Type: Progress Notes Filed: 01/19/2024 05:44 Note Text: PATIENT NAME: Eulalia Little DATE: 01/17/2024 PRIMARY CARE PHYSICIAN: Dr. Paulo Lawrence Portions of this encounter note have been copied from my note from 11/19/2022 and has been updated where appropriate, and reflect my current medical decision making from today. CC: This is a 58 year old female with a history of [...] allergies. PAST MEDICAL HISTORY: PAST MEDICAL HISTORY 03/2007: Breast cancer (HCC) Comment: Rt. 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 PHYSICAL EXAM: Vitals: BP 128/86 Pulse (!) 58 Temp 36.1 ?C (97 ?F) (Temporal) Resp 18 Wt 58.1 kg (128 lb 1.4 oz) LMP 08/29/2013 SpO2 100% BMI 20.68 kg/m? General appearance: Well appearing, alert, in [...] or tenderness. Peripheral pulses: Normal. RADIOLOGIC DATA: 05/07/2023 Bilateral breast MRI ([facility]) No MRI evidence of malignancy. Routine follow-up is recommended in 1 year. 11/22/2018 Right breast and axillary ultrasound ([facility]) Redemonstration of 2 [...] 1. 174.9 Breast cancer Stage I (T1,N0,M0) ER/MN pos, HER2 neg right breast cancer diagnosed March of 2007. The patient presented with an abnormal mammogram in February 2007 revealing microcalcifications in the left breast. 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 She sought a second opinion at the [facility]. A bilateral breast MRI was done which showed an occult tumor in the right breast which was biopsy proven to be stage I ER/MN positive low-grade ductal carcinoma. The patient underwent bilateral mastectomies with implant reconstruction. The patient subsequently received adjuvant hormonal therapy with Zoladex plus anastrozole x 5 years March 2007 through April 2012. She has had no signs of recurrence since and currently has no evidence of disease. Now that the patient is more than 16 years out (more content not included)... [facility] 01-16-2024 History of Present illness Narrative PATIENT NAME: Eulalia Little DATE: 01/17/2024 PRIMARY CARE PHYSICIAN: Dr. Paulo Lawrence Portions of this encounter note have been copied from my note from 11/19/2022 and has been updated where appropriate, and reflect my current medical decision making from today. CC: This is a 58 year old female with a history of [...] allergies. PAST MEDICAL HISTORY: PAST MEDICAL HISTORY 03/2007: Breast cancer (HCC) Comment: Rt. 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 PHYSICAL EXAM: Vitals: BP 128/86 Pulse (!) 58 Temp 36.1 C (97 F) (Temporal) Resp 18 Wt 58.1 kg (128 lb 1.4 oz) LMP 08/29/2013 SpO2 100% BMI 20.68 kg/m General appearance: Well appearing, alert, in [...] or tenderness. Peripheral pulses: Normal. RADIOLOGIC DATA: 05/07/2023 Bilateral breast MRI ([facility]) No MRI evidence of malignancy. Routine follow-up is recommended in 1 year. 11/22/2018 Right breast and axillary ultrasound ([facility]) Redemonstration of 2 [...] 1. 174.9 Breast cancer Stage I (T1,N0,M0) ER/MN pos, HER2 neg right breast cancer diagnosed March of 2007. The patient presented with an abnormal mammogram in February 2007 revealing microcalcifications in the left breast. 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 She sought a second opinion at the [facility]. A bilateral breast MRI was done which showed an occult tumor in the right breast which was biopsy proven to be stage I ER/MN positive low-grade ductal carcinoma. The patient underwent bilateral mastectomies with implant reconstruction. The patient subsequently received adjuvant hormonal therapy with Zoladex plus anastrozole x 5 years March 2007 through April 2012. She has had no signs of recurrence since and currently has no evidence of disease. Now that the patient is more than 16 years out from diagnosis she will follow-up with her PCP for further management. Would recommend yearly examination, labs, and breast MRI. We did not schedule a return visit here, but would be happy to see her in the future if we can be of assistance. (Per patient request we will schedule her next breast MRI and a bone density exam to be done in April 2024. Her PCP will order subsequent studies.) 2. 244.9 Hypothyroidism Stable on medications, will follow with PCP. Carol Wills MD documented in this encounter [facility] 06-15-2023 Evaluation note Encounter Date Diagnosis Assessment Notes May, Acute bronchitis due to other specified organisms (ICD-10 - J20.8) Instructed to use Robitussin or Mucinex for cough, saline or Flonase NS for congestion, Tylenol for pain and fever. Instructed to use Robitussin or Mucinex for cough, saline or Flonase NS for congestion, Tylenol for pain and fever. [employer] Other 12-06-2023 Evaluation note* Encounter Date Diagnosis Assessment Notes Treatment Notes Treatment Clinical Notes Apr, Acute bronchitis due to other specified organisms (ICD-10 - J20.8) Instructed to use Robitussin or Mucinex for cough, saline or Flonase NS for congestion, Tylenol for pain and fever. Instructed to use Robitussin or Mucinex for cough, saline or Flonase NS for congestion, Tylenol for pain and fever. [employer] Other 11-30-2023 Evaluation note* Encounter Date Diagnosis Assessment Notes Treatment Notes Treatment Clinical Notes Mar, Dysuria (ICD-10 - R30.0) [employer] Other 11-22-2023 Evaluation note* Encounter Date Diagnosis [...] instructed to push water and brush tongue [employer] Other 10-12-2023 Evaluation note* Encounter Date Diagnosis Assessment Notes Treatment Notes Treatment Clinical Notes Feb, Autoimmune thyroiditis (ICD-10 - E06.3) [employer] Other 08-11-2023 Evaluation note* Encounter Date Diagnosis Assessment Notes Treatment Notes Treatment Clinical Notes Dec, Autoimmune thyroiditis (ICD-10 - E06.3) [employer] Other 08-10-2023 Evaluation note* Encounter Date Diagnosis [...] - Z85.3) No s/s recurrence. 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 RADIOLOGIC DATA: 05/19/2021 Bilateral breast MRI ([facility]) Bilateral mastectomy with intact implant reconstruction. No suspicious MRI findings involving either breast. 11/22/2018 Right breast and axillary ultrasound ([facility]) Redemonstration of 2 [...] 1. 174.9 Breast cancer Stage I (T1N0M0) ER/MN pos, HER2 neg right breast cancer diagnosed March of 2007. The patient presented with an abnormal mammogram in February 2007 revealing microcalcifications in the left breast. 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 She sought a second opinion at [facility]. A bilateral breast MRI was done which showed an occult tumor in the right breast whichwas biopsy proven to be stage I ER/MN positive low-grade ductal carcinoma. The patient underwent [...] PCP. Carol Wills MD [facility]* Encounter Date Diagnosis Assessment Notes Treatment Notes Treatment Clinical Notes Apr, Dysphagia (ICD-10 - R13.10) Apr, Epigastric pain (ICD-10 - R10.13) Mosec, Mobile Secretary Other 11-23-2021 Evaluation note* Encounter Date Diagnosis Assessment Notes Treatment Notes Treatment Clinical Notes Mar, Epigastric pain (ICD-10 - R10.13) patient states discomfort. does not idania medication Mar, Dysphagia (ICD-10 - R13.10) does notice this with big vitamins. does not notice with food or liquids, proceed with EGD at this time. Mar, Heartburn (ICD-10 - R12) does not take medication for this. [employer], Mobile Secretary Other Evaluation note* Diagnosis Malignant neoplasm of upper-outer quadrant of right breast in female, estrogen receptor positive (HCC)- Primary Ductal carcinoma in situ (DCIS) of left breast documented [facility] noteNo assessment information availableClermont County Hospital Work Phone: Evaluation noteNo InformationNort StyleHaul Other Evaluation note* Diagnosis Onset Date Resolution Status GERD (gastroesophageal reflux disease) acute H/O malignant neoplasm of breast acute Hypothyroidism acute Wellness examination noneact [facility] Work Phone: Evaluation note* Diagnosis Malignant neoplasm of upper-outer quadrant of right breast in female, estrogen receptor positive (HCC)- Primary Encounter for osteoporosis screening in asymptomatic postmenopausal patient [facility]* Diagnosis Arthralgia of right acromioclavicular joint- Primary Right shoulder pain, unspecified chronicity Shoulder impingement, right [facility]* Diagnosis Encounter for gynecological examination without abnormal finding- Primary Screening for malignant neoplasm of cervix Screening for malignant neoplasm of the cervix History of breast cancer Personal history of malignant neoplasm of breast [facility] - [facility]orted* Type Description Date Medical History hypothyrodism Medical History breast cancer Surgical History bilat mastectomy 2006 Surgical History TMJ surgery 1989 Surgical History T&A 1977 Hospitalization History SEE ABOVE SURGERY Hospitalization History [facility] [employer], Mobile Secretary Other History general Narrative - Reported* Type Description Date Medical History hypothyrodism Medical History breast cancer Surgical History bilat mastectomy 2006 Surgical History TMJ surgery 1989 Surgical History T&A 1977 Surgical History Colonoscopy 2018 Hospitalization History SEE ABOVE SURGERY Hospitalization History [facility] Hospitalization History NO OVERNIGHT STAYS OR ER VISITS IN THE LAST YEAR 10/19/22 [employer], Mobile Secretary Other Reason for referral (narrative)* Diagnostic Procedure Only (Routine) - Pending Review Specialty Diagnoses / Procedures Referred By Mayr sebastian Referred To Contact [facility] Diagnoses Malignant neoplasm of upper-outer quadrant of right breast in female, estrogen receptor positive (HCC) Procedures RADHA DIAGNOSTIC BILAT DIAGNOSTIC MAMMOGRAPHY COMPUTER-AIDED DETCJ Carol Reed MD [address] [place] [address] [place] [address] [facility] [address] [place] [id number] Referral ID Status Reason Start Date Expiration Date Visits Requested Visits Authorized [id number] Pending Review Auto-Generat ed Referral 11/10/2021 12/10/2022 1 1 * MRI/CT (Routine) - Pending Review Specialty Diagnoses / Procedures Referred By Mary sebastian Referred To Contact MR IMAGING Diagnoses Malignant neoplasm of upper-outer quadrant of right breast in female, estrogen receptor positive (HCC) Procedures MRI BREAST WO/W IVCON BILAT MRI BREAST WITHOUT&WITH CONTRAST W/CAD BILATERAL Carol Wills MD [address] [place] [address] Mr [facility] Referral ID Status Reason Start Date Expiration Date Visits Requested Visits Authorized [id number] Pending Review Auto-Generat ed Referral 11/10/2021 12/10/2022 1 1 [facility] Summary Purpose Family History No Family History Records Found Relationship Condition Age at Onset Recorded Date/T jorge father Heart disease Unknown Relationship Condition Age at Onset Recorded Date/T jorge father Heart disease Unknown Unknown Advance Directives No Advanced Directives Records Found Advance Directive Response Recorded Date/ Time Advance Directives No September 10, 018 1:40pm Advance Directive Response Recorded Date/ Time Advance Directives No September 10 018 2:40pm Chief Complaint and Reason for Visit Chief Complaint C51.411 Z17.0 Chief Complaint c50.411 z17.0 Chief Complaint wellness Reason for Visit GERD (gastroesophage al reflux disease) H/O malignant neoplasm of breast Hypothyroidism Wellness examination Chief Complaint Admit Date z13.820 z78.0 c50.411 z17.0 April 8:43am z13.820 z78.0 c50.411 z17.0 July 1:28pm Reason for Referral Specialty Diagnoses / Procedures Referred By Contac t Referred To Contact MR IMAGING Diagnoses Encounter for osteoporosis screening in asymptomatic postmenopausal patient Malignant neoplasm of upper-outer quadrant of right breast in female, estrogen receptor positive (HCC) Procedures MRI BREAST WO/W IVCON BILATERAL MRI BREAST WITHOUT&WITH CONTRAST W/CAD BILATERAL Carol Wills MD [address] [place] [address] [place] [address] [place] [address] Referral ID Status Reason Start Date Expiration Date Visits Requested Visits Authorized [id number] New Request Auto-Generat ed Referral 01/17/2024 02/15/2025 1 1 Specialty Diagnoses / Procedures Referred By Contac t Referred To Contact XR IMAGING Diagnoses Encounter for osteoporosis screening in asymptomatic postmenopausal patient Procedures DXA-AXIAL SKELETON Carol Wills MD [address] [place] [address] [place] [address] [place] [address] Referral ID Status Reason Start Date Expiration Date Visits Requested Visits Authorized [id number] New Request Auto-Generat ed Referral 01/17/2024 02/15/2025 1 1 Additional Source Comments INFORMATION SOURCE (unrecogn ized section and content) DATE CREATED AUTHOR 09/17/2018 [facility] DATE CREATED AUTHOR AUTHOR'S ORGANIZ ATION 01/21/2022 [facility] DATE CREATED AUTHOR AUTHOR'S ORGANIZ ATION 05/21/2024 [facility] DATE CREATED AUTHOR AUTHOR'S ORGANIZ ATION 07/10/2024 [facility] DATE CREATED AUTHOR AUTHOR'S ORGANIZ ATION 12/14/2024 [facility] EPIC Source Comments (unrecognize d section and content) In the event this informatio n is protected by the Federal Confidentiality of Alcohol and Drug Abuse Patient Records regulations: The Federal rules restrict any use of the information to criminally investigate or prosecute any alcohol or drug abuse patient.[facility] HealthIn the event this information is protected by the Federal Confidentiality of Alcohol and Drug Abuse Patient Records regulations: The Federal rules restrict any use of the information to criminally investigate or prosecute any alcohol or drug abuse patient.[facility] HealthIn the event this information is protected by the Federal Confidentiality of Alcohol and Drug Abuse Patient Records regulations: The Federal rules restrict any use of the information to criminally investigate or prosecute any alcohol or drug abuse patient.[facility] Reason for Visit (unrecogniz ed section and content) Reason Comments Breast Cancer Reason Comments Bone desity report Reason Comments Pain Reason Comments Gynecologic Exam LMP: 2018HRT: NoneLa st pap 12-06-23 neg.Last breast MRI 07/03/24 [facility]. Denies breast, urinary, or bowel concerns. Breast Problem Wonders if [facility] would continue to order breast MRI. Dr. Wills retired, last saw him 11/2023. Care Teams (unrecognized sec tion and content) Team Status: Active Member Role Status Dates Paulo Lawrence DO Primary Care Provider Active Team Status: Inactive Member Role Status Dates Paulo Lawrence DO Primary Care Provider Active Carol Wills MD Attending Provider Active Preschool Teacher'S Assistant Relationship Specialty Start Date End Date Paulo Lawrence DO PCP - General Internal Medicine 08/25/11 Team Status: Inactive Member Role Status Dates Paulo Lawrence DO Primary Care Provide r, Attending Provider Active Start: January 11, 2024 End: January 11, 2024 Preschool Teacher'S Assistant Relationship Specialty Start Date End Date Paulo Lawrence DO PCP - General Internal Medicine 08/25/11 Preschool Teacher'S Assistant Relationship Specialty Start Date End Date Paulo Lawrence DO PCP - General Internal Medicine 08/25/11 Team Status: Inactive Member Role Status Dates Paulo Lawrence DO Primary Care Provider Active Start: May 12, 2024 End: May 12, 2024 Carol Wills MD Attending Provider Active Star t: May 12, 2024 End: May 12, 2024 Team Status: Inactive Member Role Status Dates Paulo Lawrence DO Primary Care Provider Active Start: July 03, 2024 End: July 03, 2024 Carol Wills MD Attending Provider Active Star t: July 03, 2024 End: July 03, 2024 Preschool Teacher'S Assistant Relationship Specialty Start Date End Date Paulo Lawrence PCP - General Internal Medicine 12/06/23 Preschool Teacher'S Assistant Relationship Specialty Start Date End Date Paulo Lawrence PCP - General Internal Medicine 12/06/23 Preschool Teacher'S Assistant Relationship Specialty Start Date End Date Paulo Lawrence PCP - General Internal Medicine 12/06/23 Goals (unrecognized section and content) Goals may [...] BE BASED ON THE PRIMARY CLINICAL RECORDS. [facility] [employer] [facility]. provides no warranty or guarantee of the accuracy or completeness of information in this document.
[2025-01-25 10:38] LABS: Hematocrit 40.0 % (36.0-48.0); Hemoglobin 13.2 g/dL (12.0-16.0); Immature Granulocytes Abs Auto 0.00 10^3/uL (0.00-0.03); Immature Granulocytes Pct Auto 0.0 % (0.0-0.5); Lymphocytes Absolute Auto 1.1 10^3/uL (1.2-3.8); Mean Corpuscular HGB Conc 33.0 g/dL (29.9-35.2); Mean Corpuscular Hemoglobin 32.6 pg (26.7-34.0); Mean Corpuscular Volume 98.8 fL (81.0-99.0); Platelet Count 189 10^3/uL (150-450); Red Blood Count 4.05 10^6/uL (4.20-5.40); White Blood Count 3.7 10^3/uL (4.0-11.0)
[2025-01-25 10:58] LABS: Alanine Aminotransferase 34 U/L (14-59); Albumin Globulin Ratio 1.2; Albumin Level 4.3 g/dL (3.4-5.0); Alkaline Phosphatase 58 U/L (46-116); Anion Gap 7.7; Aspartate Amino Transferase 26 U/L (15-37); Blood Urea Nitrogen 13.0 mg/dL (7.0-18.0); Calcium 9.2 mg/dL (8.5-10.1); Carbon Dioxide 32.4 mmol/L (21.0-32.0); Chloride 103 mmol/L (98-107); Cholesterol 238 mg/dL (<=200); Estimated GFR (African America >60 (>=60 mL/min/1.73m^2); Estimated GFR (Non-African Ame >60 (>=60 mL/min/1.73m^2); Globulin 3.5 g/dL; Glucose 89 mg/dL (74-106); HDL Cholesterol 100 mg/dL (40-60); Potassium 4.1 mmol/L (3.5-5.1); Sodium 139 mmol/L (136-145); Thyroid Stimulating Hormone 2.451 uIU/mL (0.358-3.740); Total Protein 7.8 g/dL (6.4-8.2); Triglycerides 49 mg/dL (<=150); VLDL CHOLESTEROL 9.8 mg/dL
== END 2025-01-25 10:16 | disposition home or self-care (01) ==
LOC: LAB 10:17
PROVIDERS: PCP Internal Medicine; Visit Provider Internal Medicine
DX: Z00.00 Encounter for general adult medical examination without abnormal findings (principal)
CPT/HCPCS: 36415; 80053; 80061; 84443; 85025

== ENCOUNTER 2025-03-20 14:30 | Outpatient (OUT) | payer BC, SELFPAY ==
--- OUTSIDE RECORDS SUMMARY | 2025-03-21 09:02 | XMS_ITS | Clinical Summary ---
Author Organization [facility] Address [address] [place] [address] Care Team Providers Care Cylinder Die Machine Helper Name Role Phone Paulo Lawrence DO Primary Care Provider [phone] Allergies No known active allergies Medications MedicationSigDispense QuantityRefillsLast FilledStart DateEnd DateStatus Cholecalciferol (VITAMIN D-3 PO) Vitamin A3Uagykf Cyanocobalamin (VITAMIN B-12 PO) Vitamin U02Pvkwru Multiple Vitamins-Minerals (MULTIVITAMIN ADULTS PO) MultivitaminActive amoxicillin (Amoxil) 500 MG capsule TAKE 4 CAPSULES BY MOUTH ONE HOUR PRIOR TO ALZBUMANG13/09/2025Active Synthroid 88 MCG tablet 88 mcg5Active methylPREDNISolone (Medrol Dospak) 4 MG tablets Indications:Prepatellar bursitis of left kneeFollow schedule on package instructions 21 tablet 5Active Active Problems ProblemNoted DateDiagnosed DateChronic /27/2023Pharyngoesophageal iowkicrjd28/27/9239Ldejtpacrzibi00/27/2023Postmenopausal atrophic vaginitis 11/24/2022losed traumatic dislocation of temporomandibular joint12/12/2012 History of malignant neoplasm of kfhrxl0812/12/2012 Resolved Problems ProblemNoted DateDiagnosed DateResolved DateBreast qvhuyy91/3DUB (dysfunctional uterine bleeding)/Pain in limb11/24/2022 12/11/2024 Encounters DateTypeDepartmentCare TmkxUrphdrgyodk00/24/2025 9:45 AM EDTOffice Visit [facility] [address] [place] [phone] Jr. Prasanth Bobby, DO Prepatellar bursitis of left knee (Primary Dx); Acute pain of left knee02/21/2025 9:40 AM EDTAncillary Procedure [facility] [address] [place] [address] 02/21/2025amboo flowsheet [facility] [address] [place] [phone] Jr. Prasanth Bobby, 02/21/20257278Cccjtg96/23/2025Travelfrom Last 3 Months Immunizations ImmunizationAdministration DatesNext DueInfluenza, High Dose Seasonal, Preservative Free02/24/2017Influenza, Split (incl. purified surface antigen) 03/27/2014Influenza, injectable, quadrivalent, preservative free03/16/2023, 03/09/2022,03/09/2021,03/08/2020,01/30/2020,02/28/2019,02/25/2019,03/17/2018, 02/22/2017,02/06/2016,02/05/2016,03/03/2015Influenza, seasonal, injectable 04/16/2007Influenza, seasonal, injectable, preservative free02/22/2024, 02/07/2018,03/20/2008Influenza, seasonal, intradermal, preservative free 09/03/2017,08/27/2015Zoster, Oxjrvpqvued16/03/2020,05/03/2019 Family History Medical HistoryRelationNameCommentsHeart diseaseFatherRobert StreeterHeart failureFatherRobert StreeterStrokeMaternal GrandfatherHeart diseaseMaternal GrandmotherRelationNameStatusCommentsFatherRobert StreeterDeceasedMaternal GrandfatherMaternal GrandmotherMotherAlive Social History Tobacco UseTypesPacks/DayYears UsedDateSmoking Tobacco: NeverSmokeless Tobacco: Never Tobacco Cessation:Counseling Given: Not Answered Alcohol UseStandard Drinks/WeekCommentsYes0 (1 standard drink = 0.6 oz pure alcohol)Social drinkerAUDIT-CAnswerDate RecordedQ1: How often do you have a drink containing alcohol?Monthly or less12/11/2024Q2: How many drinks containing alcohol do you have on a typical day when you are drinking?1 or Q3: How often do you have six or more drinks on one occasion?Never12/11/2024PHQ-2 AnswerDate RecordedPatient Health Questionnaire-2 Ynqht909 CommentsNoSex and Gender InformationValueDate RecordedSex Assigned at Gsmzyw1811/17/2022 8:45 AM EDTLegal SztBxoavt91/15/2023 7:17 PM EDTGender Identity Hwhzdn1511/17/2022 8:45 AM EDTSexual OrientationNot on file Last Filed Vital Signs Vital SignReadingTime TakenCommentsBlood Dqlqlfcc505/66012/11/2024 9:56 AM EDT Pulse--Temperature--Respiratory Rate--Oxygen Saturation--Inhaled Oxygen Concentration--Zquhzj03.2 kg (124 lb)12/11/2024 9:56 AM VNHMztdyd008.2 cm (5' 7 )12/11/2024 9:56 AM EDTBody Mass Index19.42012/11/2024 9:56 AM EDT Plan of Treatment DateTypeDepartmentCare Team (Latest Contact Info)Ixkduthvbpt36/28/2025 9:45 AM EDTOffice Visit [facility] [address] [place] [phone] Jr. Prasanth Bobby, DO [address] [facility] [address] [place] [address] 12/14/2025 9:30 AM EDTOffice Visit [facility] [address] [facility] [address] [place] [address] Aquiles Reed DO [address] [facility] [address] [place] [address] Health MaintenanceDue DateLast DoneCommentsCT Wgqudaxnqcov1965Colonoscopy 1965Colorectal Cancer Getnzycvm1965FIT-DNA1965FIT1965 FOBT1965 3491Gjxatwbfnbnda54/10/9593Xxegeskag24/10/2005Influenza Vaccine (#1) 509/, 03/16/2023, 03/09/2022, Additional history existsPap Smear 707/12/2023, 11/24/2022ervical Cancer Bzlpjvtuu94/14/2030HPV/Cotest , 11/24/2022, 11/18/2021, Additional history exists Procedures Procedure NamePriorityDate/TimeAssociated DiagnosisCommentsIGP, APT HPV,RFX 16/18,90Jmvbbhr47/14/2025 12:00 AM EDT Screening for malignant neoplasm of cervix THINPREP TIS PAP AND HPV MRNA E6/E7 WITH REFLEX TO HPV 16,18/61Wqnoxrh34/08/2024 11:01 AM EDT Screening for malignant neoplasm of cervix from Last 3 Months or Most Recently Relevant to Health Maintenance Results * IGP, APT HPV,RFX 16/18,45 (12/11/2024 12:00 AM EDT)ComponentValueRef RangeTest MethodAnalysis TimePerformed AtPathologist SignatureDiagnosis:CommentLABC[facility]P Comment: NEGATIVE FOR INTRAEPITHELIAL LESION OR MALIGNANCY. CELLULAR CHANGES ASSOCIATED WITH ATROPHY ARE PRESENT. Specimen Adequacy:CommentLABCORPComment:Satisfactory for evaluation. No endocervical component is identified.Clinician Provided ICD10:CommentL[facility] Comment:Z12.4Performed By:CommentLABCORPComment:Rehana Fan, Residence Hall Director ([facility])Cyto Comments.LABCORPNote:CommentLABCORPComment: The Pap smear is a screening test designed to aid in the detection of premalignant and malignant conditions of the uterine cervix. ??It is not a diagnostic procedure and should not be used as the sole means of detecting cervical cancer. ??Both false-positive and false-negative reports do occur. Test Methodology:CommentLABCORPComment: This liquid based ThinPrep(R) pap test was screened with the use of an image guided system. HPV AptimaNegativeNegativeLABCORPComment: This nucleic acid amplification test detects fourteen high-risk HPV types (16,18,31,33,35,39,45,51,52,56,58,59,66,68) without differentiation. Specimen (Source)Anatomical Location / LateralityCollection Method / Volume Collection TimeReceived AhptGgbe76/ Narrative [facility] - 12/13/2024 3:07 PM EDT Performed at: 01 - [facility] ??[id number] Livestock Auctioneer: Kelsey Sterling MD, Phone: ??[phone] Performed at: ??02 - [facility] ??[id number] Livestock Auctioneer: Kelsey Sterling MD, Phone: ??[phone] Specimen Comment: No. of containers..01 ThinPrep Vial Authorizing ProviderResult TypeResult StatusWilliajermaine Reed [facility] BLOOD ORDERABLESFinal ResultPerforming OrganizationAddressCity/State/ZIP CodePhone Number [facility] * THINPREP TIS PAP AND HPV MRNA E6/E7 WITH REFLEX TO HPV 16,18/45 (12/06/2023 11:01 AM EDT)ComponentValueRef RangeTest MethodAnalysis TimePerformed At Pathologist SignatureCLINICAL INFORMATIONQUESTComment:None givenLMPQUEST Comment:2018PREV. PAPQUESTComment:NEGPREV. BXQUESTComment:NONE GIVENSOURCE QUESTComment:None givenSTATEMENT OF ADEQUACYQUESTComment:SATISFACTORY FOR EVALUATIONINTERPRETATION/RESULTQUESTComment: Cytology Results: Negative for intraepithelial lesion or malignancy. Atrophic pattern; predominantly parabasal cells COMMENTQUESTComment: This Pap test has been evaluated with computer assisted technology. Parabasal cells in smears that lack maturation due to atrophy or other hormonal reasons cannot be differentiated from transformation zone cells. Accordingly, presence or absence of endocervical or transformation zone components cannot be reported in this patient. CYTOTECHNOLOGISTQUESTComment: ASD, CT(ASCP) screening location: [facility], [address] [place] [address], [place] [address]. (ALWAYS MESSAGE)QUESTComment: EXPLANATORY NOTE: The Pap is a screening test for cervical cancer. It is not a diagnostic test and is subject to false negative and false positive results. It is most reliable when a satisfactory sample, regularly obtained, is submitted with relevant clinical findings and history, and when the Pap result is evaluated along with historic and current clinical information. HPV MRNA E6/E7Not DetectedNot DetectedQUESTComment: Methodology: Software Engineering Associate Manager-Mediated Amplification This assay detects E6/E7 viral messenger RNA (mRNA) from 14 high-risk HPV types (16,18,31,33,35,39,45,51,52,56,58,59,66,68). Cervical sources are required for HPV testing. If a vaginal source from a patient who has had a total hysterectomy with removal of cervix was submitted, please contact the testing laboratory for alternative testing options. For additional information, please refer to http://education.[employer]/faq/RIG947j4 (This link if provided for information/ educational purposes only.) Specimen (Source)Anatomical Location / LateralityCollection Method / Volume Collection TimeReceived TimeSwab (Endocervix)12/06/2023 11:01 AM EDT12/07/2023 3:37 AM EDT Narrative Resulting Agency Comment Performing Organization Information ?Site ID: [id number] ?Name: [facility] ?Address: [address] [place] [phone] ?Director: David Nichols MD Authorizing ProviderResult TypeResult StatusWidwayne ALVARES CYTOLOGY ORDERABLESFinal ResultPerforming OrganizationAddressCity/State/ZIP CodePhone Number [facility]ST from Last 3 Months or Most Recently Relevant to Health Maintenance Insurance Care Teams Team MemberRelationshipSpecialtyStart DateEnd Date Paulo Lawrence, [address] [place] [phone] PCP - GeneralInternal Medicine01/31/25
--- OUTSIDE RECORDS SUMMARY | 2025-03-21 09:03 | XMS_ITS | Clinical Summary ---
Author Organization [facility] Address [address] [place], [place] [id number] Care Team Providers Care Home Care Consultant Name Role Phone Paulo Lawrence Primary Care Provider [phone] Allergies No known active allergies Medications MedicationSigDispense QuantityRefillsLast FilledStart DateEnd DateStatus levothyroxine (SYNTHROID) 88 mcg tablet Take 88 mcg by mouth once daily.09/02/2012ctive Active Problems ProblemNoted DateDiagnosed DateBreast tduvan9209/16/2012 Immunizations ImmunizationAdministration DatesNext DueCOVID original vaccine, age 12+ yr, monovalent (PFIZER-BIONTECH - PURPLE TOP)08/21/2020,07/31/2020influenza (IIV3) vaccine, trivalent (AFLURIA, FLULAVAL, FLUVIRIN, FLUZONE)04/16/2007influenza (IIV3) vaccine, trivalent, PF (AFLURIA, FLUARIX, FLULAVAL, FLUVIRIN, FLUZONE) 02/07/2018,03/20/2008influenza (IIV3) vaccine, trivalent, PF, intradermal (FLUZONE INTRADERMAL)09/03/2017,08/27/2015influenza (IIV4) vaccine, age 6 mo - 64 yr, quadrivalent, PF (AFLURIA, FLUARIX, FLULAVAL, FLUZONE)03/08/2020, 02/25/2019,03/17/2018,02/22/2017,02/06/2016,03/03/2015influenza vaccine, split virus03/27/2014zoster (RZV) vaccine, recombinant (SHINGRIX)08/01/2019,05/03/2019 Social History Tobacco UseTypesPacks/DayYears UsedDateSmoking Tobacco: NeverSmokeless Tobacco: NeverAlcohol UseStandard Drinks/WeekCommentsNo0 (1 standard drink = 0.6 oz pure alcohol)PHQ-2AnswerDate RecordedPHQ-2 [id number] Deprivation Index AnswerDate RecordedNational Score (1-100), lower number is lower risk89 11/19/2022State Score (1-10), lower number is lower dwyv7443Data from: https://www.neighborhoodatlas.medicine.[facility].edu/. Last address used for focahlelpr[address]/19/2022CommentsNoSex and Gender Information ValueDate RecordedSex Assigned at RzlxdMkburu70/06/2022 2:51 PM EDTLegal Sex Kkrqyr6805/01/2012 10:12 AM ESTGender PpluqemdXpusbe64/06/2022 2:51 PM EDTSexual BuicozfdgjzCyxwjhvp53/06/2022 2:51 PM EDT Last Filed Vital Signs Vital SignReadingTime TakenCommentsBlood Vlcmjuvb148/8601/17/2024 2:01 PM EDT Bdyfd409401/17/2024 2:01 PM RXPUgidjzmitbp11.1 ??C (97 ??F)01/17/2024 2:01 PM EDT Respiratory Wxad4744 2:01 PM EDTOxygen Sdeqowakvc446%01/17/2024 2:01 PM EDTInhaled Oxygen Concentration--Noqunr84.1 kg (128 lb 1.4 oz)01/17/2024 2:01 PM IQRZbnofx137.6 cm (5' 5.98 )11/19/2022 9:11 AM EDTBody Mass Index20.68011/19/2022 9:11 AM EDT Plan of Treatment Health MaintenanceDue DateLast DoneCommentsAnxiety Sephofufq65/10/1983Depression Wljazpeuh25/10/1983HIV Whdrrncdp26/10/1983Hepatitis C Dnhwydouh71/10/1983 Cervical Cancer Udjgblwkd44/10/1986Mammogram Dsfjmazhz43/10/2005CT Colonography 2010Cologuard (FIT-DNA)05/09/20106660Iqfsifxyrlm49/10/2010Colorectal Cancer Cfyaqemoo37/10/2010Fecal Occult Blood2010Lipid Hnhyxqaoc57/10/2010 Nmalkxcusxemw59/10/2010DTaP,Tdap,Td Vaccine (1 - Tdap), 03/19/2013Pneumococcal Vaccine: 50+ (1 of 1 - PCV)2015Diabetes Screening , 11/10/2019, 11/11/2018, Additional history existsCovid-19 Vaccine ( season), 04/19/2021, 08/21/2020, Additional history existsInfluenza Vaccine (#1), 03/09/2022, 03/09/2021, Additional history existsShingrix TpigkgqGhyabhxtg62/03/2020, 05/03/2019 Procedures Procedure NamePriorityDate/TimeAssociated DiagnosisCommentsCOMPREHENSIVE METABOLIC SRXMJOkafmwl60/11/2021 10:45 AM EDT Malignant neoplasm of upper-outer quadrant of right breast in female, estrogen receptor positive (HCC) from Last 3 Months or Most Recently Relevant to Health Maintenance Results * (ABNORMAL) COMP METABOLIC PANEL (11/08/2020 10:45 AM EDT)ComponentValueRef RangeTest MethodAnalysis TimePerformed AtPathologist SignatureProtein, Total 6.76.3 - 8.0 g/dL11/08/2020 11:16 AM EDTCL[facility] Cancer CareAlbumin4.53.9 - 4.9 g/dL11/08/2020 11:16 AM EDTCLou[facility] Cancer CareCalcium9.88.5 - 10.2 mg/dL11/08/2020 11:16 AM EDTCLou[facility] Cancer CareBilirubin, Total0.70.2 - 1.3 mg/dL11/08/2020 11:16 AM [facility] Cancer CareAlkaline Ulwcihjabqy4589 - 123 U/L11/08/2020 11:16 AM [facility] UodxDLC10(H) 13 - 35 U/L11/08/2020 11:16 AM [facility] Care Akrhnbs3640 - 99 mg/dL11/08/2020 11:16 AM [facility] Cancer CareComment: The [place] [employer] (ADA) provides guidance for cutoff values for fasting glucose and random glucose. The ADA defines fasting as no caloric intake for at least 8 hours. Fasting plasma glucose results between 100 to 125 mg/dL indicate increased risk for diabetes (prediabetes). Fasting plasma glucose results greater than or equal to 126 mg/dL meet the criteria for diagnosis of diabetes. In the absence of unequivocal hyperglycemia, results should be confirmed by repeat testing. In a patient with classic symptoms of hyperglycemia or hyperglycemic crisis, random plasma glucose results greater than or equal to 200 mg/dL meet the criteria for diagnosis of diabetes. Reference: Standards of Medical Care in Diabetes 2016, [place] [employer]. Diabetes Care. 2016.39(Suppl 1). GHC556 - 21 mg/dL11/08/2020 11:16 AM [facility] Care Creatinine0.940.58 - 0.96 mg/dL11/08/2020 11:16 AM [facility] OwarMmmpqi905314 - 144 mmol/L11/08/2020 11:16 AM [facility] Cancer CarePotassium4.13.7 - 5.1 mmol/L11/08/2020 11:16 AM [facility] DhopMshvsefk21225 - 105 mmol/L11/08/2020 11:16 AM [facility] OslqTV037(H)22 - 30 mmol/L 11/08/2020 11:16 AM [facility] Cancer CareAnion Gap5(L)9 - 18 mmol/L11/08/2020 11:16 AM [facility] ZfwiFVS08(H) 7 - 38 U/L11/08/2020 11:16 AM [facility] Cancer CareeGFR- >6006 11:16 AM [facility] Cancer CareeGFR-All Other Races>60.11/08/2020 11:16 AM [facility] Cancer CareComment: eGFR (Estimated GFR) Units of measure: mL/min/1.73 meters squared eGFR is derived from the reexpressed MDRD Study equation using the following parameters: serum creatinine, age, gender and race. The creatinine assay has been calibrated to be traceable to IDMS. An eGFR <60 mL/min/1.73m2 for >3 months is consistent with chronic kidney disease. Refer to KDOQI guidelines for clinical interpretation. In patients with unstable renal function, e.g. those with acute kidney injury, the eGFR may not accurately reflect actual GFR. Specimen (Source)Anatomical Location / LateralityCollection Method / Volume Collection TimeReceived WnzfMqsov52/11/2021 10:45 AM EDT11/08/2020 10:51 AM EDT Narrative Authorizing ProviderResult TypeResult StatusHolly Andres BENCH CHEMIST.CNPLABORATORY Final ResultPerforming OrganizationAddressCity/State/ZIP CodePhone Number [facility] [address] [address] [facility] [address] from Last 3 Months or Most Recently Relevant to Health Maintenance Insurance Care Teams Team MemberRelationshipSpecialtyStart DateEnd Date Paulo Lawrence DO PCP - GeneralInternal Medicine08/25/11
--- OUTSIDE RECORDS SUMMARY | 2025-03-21 09:03 | XMS_ITS | Clinical Summary ---
Author Organization [facility] Address [address] [place] [address] Care Team Providers Care Assistant Infant Toddler Teacher Name Role Phone Unavailable Primary Care Provider Unavailabl e Social History Tobacco UseTypesPacks/DayYears UsedDateSmoking Tobacco: Never Assessed CommentsUnknownSex and Gender InformationValueDate RecordedSex Assigned at Not on fileLegal LueEjbuml07/30/2022 12:14 AM EDTGender IdentityNot on file Sexual OrientationNot on file Plan of Treatment Not on file
--- OUTSIDE RECORDS SUMMARY | 2025-03-21 09:04 | XMS_ITS | CCD ---
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 to: Campbell Wills MD Ordering Provider: Campbell Wills MD Date of Service: 07/03/24 MR/MR [...] All imaged data was reviewed using the My Team Zone system. The postcontrast images were subtracted and [...] Fuentes Jr., D.OMigel07/03/2024 2:46 PM Dictation Location: [place] [address] Transcribed By: [facility] 07/03/24 1446 Dictated By: Matthew Fuentes Jr, DO 07/03/24 1442 Signed By: 07/03/[address] [place] [address] Physician GroupVagnetic resonance imaging reportOrdered By: Matthew Fuentes on [id number] reportUNIVERSITY [facility] Main [place] [address] [place] [address] MRI Report Signed Patient: Eulalia Little MR#: [id number] : 1965 Acct:[id number] Age/Sex: 59 / F ADM Date: 5 Loc: MR Room: Type: [facility] Attending Dr: Campbell Wills MD Copies to: Campbell Wills MD~ Ordering Provider: Campbell Wills MD Date of Service: 07/03/24 MR/MR breast BI wo/w con CAD: Z17.0 Z13.820, Z78.0 BILATERAL BREAST MRI WITHOUT AND WITH INTRAVENOUS CONTRAST CLINICAL HISTORY: History of breast cancer in 2017 with bilateral mastectomy and implant placement.Lump on both breasts. COMPARISON: Breast MRI 05/07/2023. TECHNIQUE: Multisequence, multiplanar imaging of the breasts were obtained before and after the useof IV contrast. All imaged data was reviewed using Innolume system. The postcontrast images were subtracted and CAD mapping of the enhancement kinetics was performed. Kinetic curves were generated.2D and 3D MIP images were also reviewed.Please [...] 1YR Impression dictated by: Matthew Fuentes Jr., D.O.07/03/2024 2:46 PM Dictation Location: [place] [address] Transcribed By: [facility] 07/03/24 1446 Dictated By: Matthew Fuentes Jr, DO 07/03/24 1442 Signed By: 07/03/24 1446 [facility] WestCNPNon [id number] ([place]) EULALIA LITTLE ([id number]) 1965 F Date Time Provider Department 05/18/24 MARY SPRINGER During your visit today, we recorded the following information about you: Mary Springer RN 05/18/2024 11:18 AM Signed BRM reviewed bone density report completed at [facility]. Pt to continue with calcium/vit D, as previously taking. Pt called and updated. She is agreeable to plan of care and denies any questions, needs or concerns at this time. Mary Springer RN Allergies As of Date: 05/18/2024 (No Known Allergies) Date Reviewed: 01/17/2024 Reviewed by: Viki Kinney MA - Fully Assessed Reason for Visit: Bone desity report [Other] Prescriptions as of 05/18/2024 - levothyroxine (SYNTHROID) 88 mcg tablet Take 88 mcg by mouth once daily. Problem List As Of Date 05/18/2024 Noted Resolved Breast cancer [C50.919] 09/16/2012 Encounter Status:Closed by MARY SPRINGER on 05/18/24NoSumma HealthCNOVSPon [id number] (SP) Office ([place]) EULALIA LITTLE ([id number]) 1965 F Date Time Provider Department 01/17/24 2:15 PM CAMPBELL WILLS During your visit today, we recorded the following information about you: Temperature Pulse Respiration Blood pressure 97 degrees 58/minute 18/minute 128/86 Weight 58.1 kg Campbell Wilsl MD 01/19/2024 5:44 AM Signed PATIENT NAME: Eulalia Little DATE: 01/17/2024 PRIMARY CARE PHYSICIAN: Dr. Paulo Harris Portions of this encounter note have been [...] Normal. RADIOLOGIC DATA: 05/07/2023 Bilateral breast MRI ([facility]) No MRI evidence of malignancy. Routine follow-up is recommended in 1 year. 11/22/2018 Right breast and axillary ultrasound ([facility]) Redemonstration of 2 well-circumscribed elongated hypoechoic structures at 4:00, periareolar region, stable and benign nature. No mass or prominent lymphadenopathy at the right axillary region. LABORATORY DATA: Hemoglobin (g/dL) Date Value 11/08/2020 12.7 Hematocrit (%) Date Value 11/08/2020 38.1 WBC (k/uL) Date Value 11/08/2020 3.86 Platelet Count (k/uL) Date Value 11/08/2020 168 ASSESSMENT/PLAN: 1. 174.9 Breast cancer Stage I (T1,N0,M0) ER/NV pos, HER2 neg right breast cancer diagnosed March of 2007. The patient presented with an abnormal mammogram in February 2007 revealing microcalcifications in the left breast. 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 She sought a second opinion at the [facility]. A bilateral breast MRI was done which showed an occult tumor in the right breast which was biopsy proven to be stage I ER/NV positive low-grade ductal carcinoma. The patient underwent bilateral mastectomies with (more content not included)... NormalMarymount Hospital ClevelandUrinalysis - DIPSTICKon [id number] (U) clearPososhok.ru Other Bilirubin Ql (U)NegativePososhok.ru Other Color (U)yellowPososhok.ru Other Glucose Ql (U)NegativeMccormick Localler Other Hemoglobin Ql (U)[facility] Loc[employer] Other Ketones Ql (U)NegativeMccormick Localler Other Leukocyte esterase Test strip Ql (U)[facility] [employer] Other Nitrite Ql (U)[facility] Loc[employer] Other pH (U)6.5 [pH][facility] [employer] Other Protein Ql (U)+M[facility] [employer] Other Specific gravity (U) [Rel density]1.000[facility] Localler Other Urobilinogen (U) [Mass/Vol]off [facility] Localler Other Urinalysis - DIPSTICKMccormick Localler Other Urinalysis - DIPSTICKon 57-84-1458Lhkmbfpclz (U)cloudy Pososhok.ru Other Bilirubin Ql (U)[facility] Loc[employer] Other Color (U)dark yellowMccormick Localler Other Glucose Ql (U)[facility] Loc[employer] Other Hemoglobin Ql (U)+++Mccormick [employer] Other Ketones Ql (U)[facility] Loc[employer] Other Leukocyte esterase Test strip Ql (U)+Pososhok[employer] Other Nitrite Ql (U)AnulexMccormick Localler Other pH (U)off [facility] Localler Other Protein Ql (U)+Pososhok.ru Other Specific gravity (U) [Rel density]1.030[facility] Loc[employer] Other Urobilinogen (U) [Mass/Vol]0.2 mg/dLMccormick Localler Other Urinalysis - DIPSTICKNoFamilytic Localler Other METHYLMALONIC ACID (MMA)on 05-12-1141Hqtglcykkkktn Acid, Nkrzz378 nmol/LNormal0-378The [facility] HospitalComment on above:Performed By: #### CBC #### [facility] [address] [place] [address] Dr. Ester Spangler AUTO DIFFon [id number] #0.0 103/ulNormal0.0-0.1The [facility] HospitalComment on above:Performed By: #### CBC #### [facility] [address] [place] [address] Dr. Ester JensenBasophils/100 WBC (Bld)1.2 %Normal0.2-2.0[facility] Comment on above:Performed By: #### CBC #### [facility] [address] [place] [address] Dr. Ester Irvin #0.1 103/ulNormal0.0-0.7The [facility] HospitalComment on above: Performed By: #### CBC #### [facility] [address] [place] [address] Dr. Ester Baroneosinophils/100 WBC (Bld)3.4 %Normal0.9-7.0[facility] Comment on above:Performed By: #### CBC #### [facility] [address] [place] [address] Dr. Ester Baronerythrocyte distribution width (RBC) [Ratio]12.1 %Szmosp01.0-15.0 The [facility] HospitalComment on above:Performed By: #### CBC #### [facility] [address] [place] [address] Dr. Ester JensenHematocrit (Bld) [Volume fraction]38.9 %Sawwgf78.0-48.0The Edwin HospitalComment on above:Performed By: #### CBC #### [facility] [address] [place] [address] Dr. Ester JensenHemoglobin (Bld) [Mass/Vol]12.5 g/yKGcjvgc83.0-16.0The [facility] HospitalComment on above:Performed By: #### CBC #### [facility] [address] [place] [address] Dr. Ester Hills #0.00 10e3/ulNormal0.00-0.03The [facility] HospitalComaspirus iron river hospital on above:Performed By: #### CBC #### [facility] [address] [place] [address] Dr. Ester Hills %0.0 %Normal0.0-0.5The [facility] HospitalComment on above: Performed By: #### CBC #### [facility] [address] [place] [address] Dr. Ester Bynum #1.7 103/ulNormal1.2-3.8The [facility] HospitalComment on above:Performed By: #### CBC #### [facility] [address] [place] [address] Dr. Ester Marquezhocytes/100 WBC (Bld)50.6 %Owiexj53.5-60.0The [facility] HospitalComaspirus iron river hospital on above:Performed By: #### CBC #### [facility] [address] [place] [address] Dr. Ester MejíaUAL DIFF REQNONormalThe [facility] HospitalComment on above: Performed By: #### CBC #### [facility] [address] [place] [address] Dr. Ester Bonds (RBC) [Entitic mass]32.1 jbIlplpz39.7-34.0The [facility] HospitalComment on above:Performed By: #### CBC #### [facility] [address] [place] [address] Dr. Ester Bonds (RBC) [Mass/Vol]32.1 g/wZTqxcgz85.9-35.2The [facility] HospitalComment on above:Performed By: #### CBC #### [facility] [address] [place] [address] Dr. Ester BondsV (RBC) [Entitic vol]99.7 fLCritically high81.0-99.0The [facility] HospitalComment on above:Performed By: #### CBC #### [facility] [address] [place] [address] Dr. Ester Boykin #0.3 103/ulNormal0.3-0.8The [facility] HospitalComment on above:Performed By: #### CBC #### [facility] [address] [place] [address] Dr. Ester Esquivelocytes/100 WBC (Bld)9.5 %Normal1.7-12.0[facility] Comment on above:Performed By: #### CBC #### [facility] [address] [place] [address] Dr. Ester Barajas #1.2 103/ulCritically low1.4-6.5The [facility] HospitalComment on above:Performed By: #### CBC #### [facility] [address] [place] [address] Dr. Ester Hunterutrophils/100 WBC (Bld)35.3 %Critically low43.0-75.0The [facility] HospitalComment on above:Performed By: #### CBC #### [facility] [address] [place] [address] Dr. Ester Weberlet mean volume (Bld) [Entitic vol]11.0 fLNormal9.5-13.5The [facility] HospitalComment on above:Performed By: #### CBC #### [facility] [address] [place] [address] Dr. Ester JensenPLT165 103/lpHkzgwr767-424Ali [facility] HospitalComment on above: Performed By: #### CBC #### [facility] [address] [place] [address] Dr. Ester JensenRBC3.90 106/ulCritically low4.20-5.40The [facility] HospitalComment on above:Performed By: #### CBC #### [facility] [address] [place] [address] Dr. Ester JensenWBC3.3 103/ulCritically low4.0-11.0The [facility] HospitalComment on above:Performed By: #### CBC #### [facility] [address] [place] [address] Dr. Ester Flowers B12 AND FOLATEon 90-27-4543Irirkdnqt (Vitamin B12) [Mass/Vol] 1293.0 pg/mLCritically dirf598.0-986.0The [facility] HospitalComment on above: Performed By: #### CBC #### [facility] [address] [place] [address] Dr. Ester JensenFOLATE21.40 ng/mLNormal8.60-58.90The [facility] HospitalComment on above:Performed By: #### CBC #### [facility] [address] [place] [address] Dr. Ester Spangler AUTO DIFFon [id number] #0.0 103/ulNormal0.0-0.1The [facility] HospitalComment on above:Performed By: #### CBC #### [facility] [address] [place] [address] Dr. Ester JensenBasophils/100 WBC (Bld)1.4 %Normal0.2-2.0The [facility] Comment on above:Performed By: #### CBC #### [facility] [address] [place] [address] Dr. Ester Irvin #0.1 103/ulNormal0.0-0.7The [facility] HospitalComment on above: Performed By: #### CBC #### [facility] [address] [place] [address] Dr. Ester Baroneosinophils/100 WBC (Bld)2.0 %Normal0.9-7.0The [facility] Comment on above:Performed By: #### CBC #### [facility] [address] [place] [address] [address] Ester Baronerythrocyte distribution width (RBC) [Ratio]11.9 %Gosxcs72.0-15.0 The [facility] HospitalComment on above:Performed By: #### CBC #### [facility] [address] [place] [address] [address] Ester JensenHematocrit (Bld) [Volume fraction]39.9 %Sbmdwg42.0-48.0The [facility] HospitalComment on above:Performed By: #### CBC #### [facility] [address] [place] [address] [address] Ester JensenHemoglobin (Bld) [Mass/Vol]13.0 g/gPXhltrs98.0-16.0The [facility] HospitalComment on above:Performed By: #### CBC #### [facility] [address] [place] [address] Dr. Ester Hills #0.01 10e3/ulNormal0.00-0.03The [facility] HospitalComment on above:Performed By: #### CBC #### [facility] [address] [place] [address] [address] Ester Hills %0.3 %Normal0.0-0.5The [facility] HospitalComment on above: Performed By: #### CBC #### [facility] [address] [place] [address] Dr. Ester MarquezH #1.1 103/ulCritically low1.2-3.8The [facility] Comment on above:Performed By: #### CBC #### [facility] [address] [place] [address] Dr. Ester Cuevasmphocytes/100 WBC (Bld)37.2 %Rzkner75.5-60.0The [facility] HospitalComment on above:Performed By: #### CBC #### [facility] [address] [place] [address] Dr. Ester MejíaUAL DIFF REQNONormalThe [facility] HospitalComment on above: Performed By: #### CBC #### [facility] [address] [place] [address] [address] Ester Bonds (RBC) [Entitic mass]32.9 glRnlcwg15.7-34.0The [facility] HospitalComment on above:Performed By: #### CBC #### [facility] [address] [place] [address] Dr. Ester Bonds (RBC) [Mass/Vol]32.6 g/sRTheatb12.9-35.2The [facility] HospitalComment on above:Performed By: #### CBC #### [facility] [address] [place] [address] Dr. Ester Bonds (RBC) [Entitic vol]101.0 fLCritically high81.0-99.0The [facility] HospitalComment on above:Performed By: #### CBC #### [facility] [address] [place] [address] Dr. Ester Boykin #0.4 103/ulNormal0.3-0.8The [facility] HospitalComment on above:Performed By: #### CBC #### [facility] [address] [place] [address] Dr. Ester Esquivelocytes/100 WBC (Bld)12.5 %Critically high1.7-12.0The [facility] HospitalComment on above:Performed By: #### CBC #### [facility] [address] [place] [address] Dr. Ester Barajas #1.4 103/ulNormal1.4-6.5The [facility] HospitalComment on above:Performed By: #### CBC #### [facility] [address] [place] [address] Dr. Ester Hunterutrophils/100 WBC (Bld)46.6 %Eudcxg04.0-75.0The [facility] HospitalComment on above:Performed By: #### CBC #### [facility] [address] [place] [address] Dr. Ester Weberlet mean volume (Bld) [Entitic vol]10.9 fLNormal9.5-13.5The [facility] on above:Performed By: #### CBC #### [facility] [address] [place] [address] [address] Ester JensenPLT157 103/vnAeghao923-654Inc [facility] on above: Performed By: #### CBC #### [facility] [address] [place] [address] Dr. Ester JensenRBC3.95 106/ulCritically low4.20-5.40The [facility] on above:Performed By: #### CBC #### [facility] [address] [place] [address] Dr. Ester JensenWBC3.0 103/ulCritically low4.0-11.0The [facility] on above:Performed By: #### CBC #### [facility] [address] [place] [address] Dr. Ester GaoID PROFILEon 08-00-8010QRCY-HDL RATIO NORMSRegency Hospital Cleveland East on above:Result Comment: 3.3 - 4.4 LOW RISK 4.4 - 7.1 AVERAGE RISK 7.1 - 11.0 MODERATE RISK >11.0 HIGH RISKPerformed By: #### BMP, LIPID, TSH #### [facility] [address] [place] [address] Dr. Ester JensenCholesterol [Mass/Vol]201 mg/dLCritically high<=200The [facility] on above:Performed By: #### BMP, LIPID, TSH #### [facility] [address] [place] [address] Dr. Ester Puriesterol in HDL [Mass/Vol]86 mg/dLCritically bahr94-66Jnv [facility] on above:Performed By: #### BMP, LIPID, TSH #### [facility] [address] [place] [address] Dr. Ester Puriesterol in LDL [Mass/Vol]106.6 mg/dLSumma Health Barberton Campus on above:Performed By: #### BMP, LIPID, TSH #### [facility] [address] [place] [address] [address] Ester JensenCholesterol.total/Cholesterol in HDL [Mass ratio]2.3 {ratio} NormalOhiohealth Van Wert HospitalComment on above:Performed By: #### BMP, LIPID, TSH #### [facility] [address] [place] [address] [address] Ester Verdugo NORMAL> or = 60 mg/dl - LOW CARDIOVASCULAR RISK <40 mg/dl - HIGH CARDIOVASCULAR RISKPomerene HospitalComment on above:Performed By: #### BMP, LIPID, TSH #### [facility] [address] [place] [address] [address] Ester JensenLDL CALC NORMALSEE BELOWPomerene HospitalComment on above:Result Comment: <100 mg/dl OPTIMAL 100 - 129 mg/dl NEAR OR ABOVE OPTIMAL 130 - 159 mg/dl BORDERLINE HIGH 160 - 189 mg/dl HIGH >190 mg/dl VERY HIGH Performed By: #### BMP, LIPID, TSH #### [facility] [address] [place] [address] [address] Ester JensenTriglyceride [Mass/Vol]42 mg/dLNormal<=150The [facility] Comment on above:Performed By: #### BMP, LIPID, TSH #### [facility] [address] [place] [address] [address] Ester RobertoLDL CALC8.4 mg/dLNoMansfield HospitalComment on above: Performed By: #### BMP, LIPID, TSH #### [facility] [address] [place] [address] [address] Ester JensenPROF CHEM 8 (BAS METB)on 71-25-0362Kwbzi gap [Moles/Vol]10.5 mmol/LNormalOhiohealth Van Wert HospitalComment on above:Performed By: #### BMP, LIPID, TSH #### [facility] [address] [place] [address] Dr. Ester JensenCalcium [Mass/Vol]8.5 mg/dLNormal8.5-10.1[facility] Comment on above:Performed By: #### BMP, LIPID, TSH #### [facility] [address] [place] [address] [address] Ester JensenChloride [Moles/Vol]102 mmol/NAwrgas23-349Zpl [facility] Comment on above:Performed By: #### BMP, LIPID, TSH #### [facility] [address] [place] [address] [address] Ester JensenCO2 [Moles/Vol]29.5 mmol/AFsvaht27.0-32.0The [facility] Comment on above:Performed By: #### BMP, LIPID, TSH #### [facility] [address] [place] [address] [address] Ester JensenCreatinine [Mass/Vol]0.82 mg/dLNormal0.55-1.02[facility] HospitalComment on above:Performed By: #### BMP, LIPID, TSH #### [facility] [address] [place] [address] [address] Ester BaroneGFR-AF BOLIVIAN>60Normal>=60The [facility] HospitalComment on above:Performed By: #### BMP, LIPID, TSH #### [facility] [address] [place] [address] [address] Ester BaroneGFR-NON AF BOLIVIAN>60Normal>=60The [facility] HospitalComment on above:Performed By: #### BMP, LIPID, TSH #### [facility] [address] [place] [address] [address] Ester JensenGlucose [Mass/Vol]92 mg/dUGnofxk24-339Rhe [facility] Comment on above:Performed By: #### BMP, LIPID, TSH #### [facility] [address] [place] [address] [address] Ester JensenPotassium [Moles/Vol]4.0 mmol/LNormal3.5-5.1The [facility] Comment on above:Performed By: #### BMP, LIPID, TSH #### [facility] [address] [place] [address] [address] Ester JensenSodium [Moles/Vol]138 mmol/QIegliz257-079Wkq [facility] Comment on above:Performed By: #### BMP, LIPID, TSH #### [facility] [address] [place] [address] Dr. Ester Dunbar nitrogen [Mass/Vol]11.0 mg/dLNormal7.0-18.0[facility] HospitalComment on above:Performed By: #### BMP, LIPID, TSH #### [facility] [address] [place] [address] Dr. Ester Dunbar nitrogen/Creatinine [Mass ratio]13.4 mg/mgNoMansfield HospitalComment on above:Performed By: #### BMP, LIPID, TSH #### [facility] [address] [place] [address] Dr. Ester Simon 16-86-1512RTE7.803 uIU/mLNormal0.358-3.740The [facility] HospitalComment on above:Performed By: #### BMP, LIPID, TSH #### [facility] [address] [place] [address] Dr. Ester Trujillo [facility] BELOWPomerene HospitalComment on above: Result Comment: <0.34 UIU/ml HYPERTHYROID 0.34-5.60 UIU/ml EUTHYROID >5.60 UIU/ml HYPOTHYROIDPerformed By: #### BMP, LIPID, TSH #### [facility] [address] [place] [address] Dr. Ester Spangler AUTO DIFFon [id number] #0.0 103/ulNormal0.0-0.1[facility] Wert HospitalComment on above:Performed By: #### CBC #### [facility] [address] [place] [address] Dr. Ester Pimentelsophils/100 WBC (Bld)1.1 %Normal0.2-2.0[facility] Comment on above:Performed By: #### CBC #### [facility] [address] [place] [address] Dr. Norman ChangEO #0.1 103/ulNormal0.0-0.7The [facility] HospitalComment on above: Performed By: #### CBC #### [facility] [address] [place] [address] Dr. Ester Baroneosinophils/100 WBC (Bld)2.5 %Normal0.9-7.0The [facility] on above:Performed By: #### CBC #### [facility] [address] [place] [address] Dr. Ester Baronerythrocyte distribution width (RBC) [Ratio]12.2 %Lrqhfy92.0-15.0 The [facility] HospitalComment on above:Performed By: #### CBC #### [facility] [address] [place] [address] Dr. Ester JensenHematocrit (Bld) [Volume fraction]38.7 %Apllxs22.0-48.0The [facility] HospitalComment on above:Performed By: #### CBC #### [facility] [address] [place] [address] Dr. Ester JensenHemoglobin (Bld) [Mass/Vol]12.6 g/cQUankxj94.0-16.0The [facility] HospitalComment on above:Performed By: #### CBC #### [facility] [address] [place] [address] Dr. Ester Hills #0.01 10e3/ulNormal0.00-0.03The [facility] HospitalComment on above:Performed By: #### CBC #### [facility] [address] [place] [address] Dr. Ester Hills %0.3 %Normal0.0-0.5The [facility] HospitalComment on above: Performed By: #### CBC #### [facility] [address] [place] [address] Dr. Ester Bynum #1.6 103/ulNormal1.2-3.8The [facility] HospitalComment on above:Performed By: #### CBC #### [facility] [address] [place] [address] Dr. Ester Marquezhocytes/100 WBC (Bld)43.6 %Oxhzvw27.5-60.0The [facility] HospitalComment on above:Performed By: #### CBC #### [facility] [address] [place] [address] Dr. Ester Lawler DIFF REQNONormalThe [facility] HospitalComment on above: Performed By: #### CBC #### [facility] [address] [place] [address] Dr. Ester Bonds (RBC) [Entitic mass]32.8 rzIgfqyk82.7-34.0The [facility] HospitalComment on above:Performed By: #### CBC #### [facility] [address] [place] [address] Dr. Ester Bonds (RBC) [Mass/Vol]32.6 g/gILgsmez63.9-35.2The [facility] HospitalComment on above:Performed By: #### CBC #### [facility] [address] [place] [address] Dr. Ester Johnson (RBC) [Entitic vol]100.8 fLCritically high81.0-99.0The [facility] HospitalComment on above:Performed By: #### CBC #### [facility] [address] [place] [address] Dr. Ester Boykin #0.3 103/ulNormal0.3-0.8The [facility] HospitalComment on above:Performed By: #### CBC #### [facility] [address] [place] [address] Dr. Ester Esquivelocytes/100 WBC (Bld)9.3 %Normal1.7-12.0[facility] Comment on above:Performed By: #### CBC #### [facility] [address] [place] [address] Dr. Ester Barajas #1.6 103/ulNormal1.4-6.5The [facility] HospitalComment on above:Performed By: #### CBC #### [facility] [address] [place] [address] Dr. Yilan ChangNeutrophils/100 WBC (Bld)43.2 %Ppyxbr38.0-75.0[facility] HospitalComment on above:Performed By: #### CBC #### [facility] [address] [place] [address] Dr. Ester Young mean volume (Bld) [Entitic vol]11.3 fLNormal9.5-13.5The [facility] HospitalComment on above:Performed By: #### CBC #### [facility] [address] [place] [address] Dr. Ester JensenPLT153 103/qeGljypq987-576Yeo [facility] HospitalComment on above: Performed By: #### CBC #### [facility] [address] [place] [address] Dr. Ester JensenRBC3.84 106/ulCritically low4.20-5.40The [facility] HospitalComment on above:Performed By: #### CBC #### [facility] [address] [place] [address] Dr. Ester JensenWBC3.7 103/ulCritically low4.0-11.0[facility] HospitalComment on above:Performed By: #### CBC #### [facility] [address] [place] [address] Dr. Ester JensenTRANSGLUTAMINASE IGAon 10-39-4504p-Transglutaminase (tTG) IgA<2 Normal0-3The [facility] HospitalComment on above:Result Comment: Negative 0 - 3 Weak Positive 4 - 10 Positive >10 . Tissue Transglutaminase (tTG) has been identified as the endomysial antigen. Studies have demonstr- ated that endomysial IgA antibodies have over 99% specificity for gluten sensitive enteropathy.Performed By: #### TRANIGA #### [facility] [address] [place] [address] Dr. Ester JensenTRANSGLUTAMINASE IGGon 07-93-7750z-Transglutaminase (tTG) IgG3 U/mLNormal0-5The [facility] HospitalComment on above:Result Comment: Negative 0 - 5 Weak Positive 6 - 9 Positive >9Performed By: #### CBC #### [facility] [address] [place] [address] Dr. Ester Christopher HEPATOBILIARY SCAN W EFon 44-35-4550PM HEPATOBILIARY SCAN W EF EXAMINATION: NM HEPATOBILIARY [...] Electronically authenticated by: PAULETTE SILVA Date: 2021-04-18 17:13NoThe [facility] W MANUAL DIFFon 93-32-1591ATEPRSAG LYMPH #0.08 103/ulNormal The [facility] HospitalComment on above:Performed By: #### JENNA #### [facility] [address] [place] [address] Dr. Ester BucknerYPICAL LYMPH %3 %NormalThe [facility] HospitalComment on above: Performed By: #### JENNA #### [facility] [address] [place] [address] Dr. Ester Florian #Normal0.0-0.3The [facility] HospitalComment on above: Performed By: #### JENNA #### [facility] [address] [place] [address] Dr. Ester Florian %Normal0-5The [facility] HospitalComment on above:Performed By: #### CHOLOMAN #### [facility] [address] [place] [address] Dr. Ester Lau #0.00 103/ulNormal0.00-0.10The [facility] HospitalComment on above:Performed By: #### CHOLOMAN #### [facility] [address] [address] [address] Ester Lau %0.0 %Critically low0.2-2.0The [facility] HospitalComment on above:Performed By: #### CBCBRENDAN #### [facility] [address] [place] [address] Dr. Ester Carrion #NormalThe [facility] HospitalComment on above:Performed By: #### CBCBRENDAN #### [facility] [address] [place] [address] Dr. Ester Cariron %NormalThe [facility] HospitalComment on above:Performed By: #### JENNA #### [facility] [address] [place] [address] Dr. Ester JensenCORRECTED WBCNormal4.0-11.0The [facility] on above: Performed By: #### JENNA #### [facility] [address] [place] [address] Dr. Ester Handy #0.05 103/ulNormal0.00-0.70The [facility] HospitalComasp[facility] on above:Performed By: #### JENNA #### [facility] [address] [place] [address] Dr. Ester Handy%2.0 %Normal0.9-7.0[facility] on above: Performed By: #### JENNA #### [facility] [address] [place] [address] Dr. Ester JensenHCT40.2 %Tgazxs85.0-48.0The [facility] HospitalComment on above: Performed By: #### JENNA #### [facility] [address] [place] [address] Dr. Ester JensenHGB13.0 g/mkBjfglz88.0-16.0The [facility] HospitalComaspirus [facility] on above: Performed By: #### CBCBRENDAN #### [facility] [address] [place] [address] Dr. Ester Cohen #1.20 103/ulNormal1.20-3.80The [facility] HospitalComment on above:Performed By: #### JENNA #### [facility] [address] [address] [address] Ester Cohen%46.0 %Otzhti87.5-60.0The [facility] HospitalComment on above:Performed By: #### JENNA #### [facility] [address] [place] [address] Dr. Ester BondsH31.8 hkWaaafm61.7-34.0The [facility] HospitalComment on above: Performed By: #### JENNA #### [facility] [address] [place] [address] Dr. Ester BondsHC32.3 g/pfOisilu39.9-35.2The [facility] HospitalComment on above:Performed By: #### JENNA #### [facility] [address] [place] [address] Dr. Ester BondsV98.3 aPNxbbyf98.0-99.0The [facility] HospitalComment on above: Performed By: #### JENNA #### [facility] [address] [place] [address] Dr. Ester ChiuOCYTE #NormalThe [facility] on above: Performed By: #### JENNA #### [facility] [address] [place] [address] Dr. Ester ChiuOCYTE %NormalThe [facility] HospitalComaspirus [facility] on above: Performed By: #### JENNA #### [facility] [address] [place] [address] Dr. Ester Barboza#0.31 103/ulNormal0.30-0.80The [facility] HospitalComment on above:Performed By: #### JENNA #### [facility] [address] [place] [address] Dr. Ester Barboza%12.0 %Normal1.7-12.0The [facility] HospitalComment on above: Performed By: #### JENNA #### [facility] [address] [place] [address] Dr. Ester TalaveraV11.2 fLNormal9.5-13.5The [facility] HospitalComment on above: Performed By: #### JENNA #### [facility] [address] [place] [address] Dr. Ester FowlerOCYTE #NormalOhiohealth Van Wert HospitalComment on above:Performed By: #### JENNA #### [facility] [address] [place] [address] Dr. Ester FowlerOCYTE %NormalThe [facility] HospitalComment on above:Performed By: #### JENNA #### [facility] [address] [place] [address] Dr. Ester JensenNRBCNoalThKettering Health Behavioral Medical CenterComment on above:Performed By: #### JENNA #### [facility] [address] [place] [address] Dr. Ester HicksT161 103/jdEcnkgj507-169Ldk [facility] Hospitalment on above: Performed By: #### JENNA #### [facility] [address] [place] [address] Dr. Ester SegoviaC4.09 106/ulCritically low4.20-5.40The [facility] Hospitalment on above:Performed By: #### JENNA #### [facility] [address] [place] [address] Dr. Ester JensenRDW11.9 %Hqeprv18.0-15.0The [facility] HospitalComment on above: Performed By: #### JENNA #### [facility] [address] [place] [address] Dr. Ester Farah #0.96 103/ulCritically low1.40-6.50The [facility] on above:Performed By: #### CBCBRENDAN #### [facility] [address] [place] [address] Dr. Ester Farah %37.0 %Critically low43.0-75.0The [facility] HospitalComment on above:Performed By: #### JENNA #### [facility] [address] [place] [address] Dr. Ester JensenWBC2.6 103/ulCritically low4.0-11.0The [facility] HospitalComment on above:Performed By: #### CBCMAN #### [facility] [address] [address] [address] Ester JensenPERIPHERAL SMEARon 64-66-5143Itccdttvlqo Cyto stain Nom (Cvx/Vag) [ID]DR. USHA VenegasMercy Health Lorain HospitalComment on above:Result Comment: REVIEW OF SMEAR REVEALS NORMAL RBCS AND PLATELETS. THERE IS NEUTROPENIA WITH OCCASIONAL NEUTROPHILS WITH MONOLOBULATED NEUCLEI WITH HYPOGRANUALARITY. NO IMMATUE BLASTS ARE SEEN ARE FOUND TO BE REACTIVE. NEUTROPENIA CAN BE SEEN IN THE SETTING OF DRUG MEDATED INFECTIOUIS PROCESS CYCLE NEUTROPENIA OR AN IMMUNE MEDIATED PROCESS SUCH IN COLLEGEN UNICELLULAR DISORDERS. CLINICAL CORRELATION IS RECOMMENDED CPT 13771Amrhkpyqj By: #### PERSMR #### [facility] [address] [place] [address] Dr. Ester JensenVITAMIN B12on 39-30-4172Leedywlpr (Vitamin B12) [Mass/Vol]448.0 pg/tKQhypts892.0-931.0Ohiohealth Van Wert HospitalComment on above:Performed By: #### VITB12 #### [facility] [address] [place] [address] Dr. Ester Jensen Vital Signs Date TimeVital SignValuePerforming LfwwdwpyfJydxndko45-22-0276 09:42-0400 Diastolic blood teooioxf63 mm[Hg]Paulo [employer] DO Work Phone: [facility]10-02-2025 09:42-0400 Heart rate70 /minBenjamin Ball DO Work Phone: [facility]10-02-2025 09:42-0400 Respiratory rate18 /minBenjamin Ball DO Work Phone: [facility]10-02-2025 09:42-0400 SaO2% (BldA) [Mass fraction]99 %Paulo Ball DO Work Phone: [facility]10-02-2025 09:42-0400 Systolic blood zqhbpeka355 mm[Hg]Paulo Ball DO Work Phone: 1(419)[phone] [place], [place] 6107110-02-2025 08:06-0400 Body klsdup338.91 cmBenjamin Ball DO Work Phone: 1(419)[address] [place], [place] 6107110-02-2025 08:06-0400 Body fuitlc51.69 kgBenjamin Ball DO Work Phone: 1(419)[address] [place], [place] 6107108-28-2025 09:32-0400 Body lmoczv290.18 cmBenjamin Ball DO Work Phone: 1(419)[address] [place], [place] 6107108-28-2025 09:32-0400 Body mass index (BMI) [Ratio]19.8 kg/d2Hqdlpwyw Ball DO Work Phone: 1(419)[address] [place], [place] 6107108-28-2025 09:32-0400 Body jogduc68.37 kgBenjamin Ball DO Work Phone: 1(419)[address] [place], [place] 6107108-28-2025 09:32-0400 Diastolic blood alfixkgb70 mm[Hg]Paulo Ball DO Work Phone: 1(419)[address] [place], [place] 6107108-28-2025 09:32-0400 Diastolic blood unlfnobb77 mm[Hg]Paulo Ball DO Work Phone: 1(419)[address] [place], [place] 6107108-28-2025 09:32-0400 Heart rate71 /minBenjamin Ball DO Work Phone: 1(419)[address] [place], [place] 6107108-28-2025 09:32-0400 Respiratory rate12 /minBenjamin Ball DO Work Phone: 1(419)[address] [place], [place] 6107108-28-2025 09:32-0400 Systolic blood njiarzsa512 mm[Hg]Paulo Ball DO Work Phone: 1(419)[address] [place], [place] 6107108-28-2025 09:32-0400 Systolic blood ugmbvgoz653 mm[Hg]Paulo Ball DO Work Phone: 1(419)[address] [place], [place] 6107107-14-2025 09:56-0400 Body hghgdi013.2 cmWidwayne Reed DO Work Phone: [facility] HospitalNqubzujbkk51-38-8165 09:56-0400Body mass index (BMI) [Ratio]19.42 kg/g2ZdrggrmAquiles Reed DO Work Phone: noL[facility] HospitalAxjobryfia49-34-4018 09:56-0400Body ytrzmw99.25 kgWidwayne Reed DO Work Phone: [facility] HospitalTxotgfkxzx97-55-9335 09:56-0400Diastolic blood dlexnrik74 mm[Hg]Aquiles Reed DO Work Phone: [facility] HospitalHtplojulnl61-55-7473 09:56-0400Systolic blood xezknkbz747 mm[Hg]Aquiles Reed DO Work Phone: [facility] HospitalFjxhaclpya28-05-4486 07:37-0500Body pgjgyl574.18 cmBenpamela Ball DO Work Phone: [facility]02-03-2025 07:37-0500 Body .23 kgBenhilariomin Ball DO Work Phone: [facility]08-19-2024 14:01-0400 Body mass index (BMI) [Ratio]20.68 kg/g2IzimuCampbell Wills MD Work Phone: [facility]08-19-2024 14:01-0400Body temperature 97 [degF]Campbell Wills MD Work Phone: [facility]08-19-2024 14:01-0400Body dssrba09.1 kgCampbell Wills MD Work Phone: [facility]08-19-2024 14:01-0400Diastolic blood rpbewytg73 mm[Hg]Campbell Wills MD Work Phone: [facility]08-19-2024 14:01-0400Heart rate58 /min Campbell Wills MD Work Phone: [facility]08-19-2024 14:010400Respiratory rate 18 /minCampbell Wills MD Work Phone: [facility]08-19-2024 14:01-3026RzU7% (BldA) [Mass fraction]100 %Campbell Wills MD Work Phone: [facility]08-19-2024 14:01-0400Systolic blood fdipzbqs717 mm[Hg]Campbell Wills MD Work Phone: [facility]08-13-2024 08:37-0400Body rihulh729.18 cmL[facility]08-13-2024 08:37-0400Body mass index (BMI) [Ratio]19.8 kg/i8GyqtgwuzbLake [facility]08-13-2024 08:37-0400Body .37 kgL[facility]08-13-2024 08:37-0400Diastolic blood npabsjzk70 mm[Hg][facility]08-13-2024 08:37-0400 Heart rate70 /[facility]08-13-2024 08:37-0400 Respiratory rate12 /[facility]08-13-2024 08:37-0400 Systolic blood fdxvlebw691 mm[Hg][facility]12-08-2023 10:14-0500Body yiyvlf915.18 cmDO Paulo Ball Work Phone: [facility]12-08-2023 10:14-0500 Body yyehie93.69 kgDO Paulo Ball Work Phone: [facility]11-22-2023 11:15-0500 Body zfkbys270.45 cmBenjamin Ball Other [employer] Other 11-22-2023 11:15-0500Body mass index (BMI) [Ratio] 19.75 kg/k5Mabzrkdc Ball Other [employer] Other 11-22-2023 11:15-0500Body owyyfl20.06 kgBenjamin Ball Other [employer] Other 11-22-2023 11:15-0500Diastolic blood farlhafy70 mm[Hg] Paulo Ball Other [employer] Other 11-22-2023 11:15-0500Respiratory rate12 /minBenjamin Ball Other [employer] Other 11-22-2023 11:15-0500Systolic blood zjjhpjpy936 mm[Hg] Paulo Ball Other [employer] Other 08-10-2023 11:30-0400Body ihtqrq264.45 cmBenjamin Ball Other [employer] Other 08-10-2023 11:30-0400Body mass index (BMI) [Ratio] 19.44 kg/z9Zpgjwhwk Ball Other [employer] Other 08-10-2023 11:30-0400Body jeklvj57.15 kgBenjamin Ball Other [employer] Other 08-10-2023 11:30-0400Diastolic blood jplmshay66 mm[Hg] Paulo Ball Other [employer] Other 08-10-2023 11:30-0400Systolic blood jfclywua052 mm[Hg] Paulo Ball Other [employer] Other [id number] 14:43-0500Body ycizse482.18 cmDO Paulo Ball Work Phone: [facility]12-05-2022 14:43-0500 Body oihxss96.6 kgDO Paulo Ball Work Phone: [facility]11-14-2022 11:30-0500 Body rsfrib895.45 Jennie Magana Other [employer] Other 11-14-2022 11:30-0500Body mass index (BMI) [Ratio] 19.75 kg/w8NudzbaxfRafi Magana Other [employer] Other 11-14-2022 11:30-0500Body uljalx94.06 kgLawrdyan Magana Other [employer] Other 11-14-2022 11:30-0500Diastolic blood ajrnhpyt37 mm[Hg] Rafi Magana Other [employer] Other 11-14-2022 11:30-0500Systolic blood hmfsqazn478 mm[Hg] Rafi Magana Other [employer] [facility] [employer] Other 06-13-2022 09:31-0400Body lbjexb343.6 cmCampbell Wills MD Work Phone: [facility]06-13-2022 09:31-0400Body temperature 97.59 [degF]Campbell Wills MD Work Phone: [facility]06-13-2022 09:31-0400Body xldhve76.52 kgCampbell Wills MD Work Phone: [facility]06-13-2022 09:31-0400Diastolic blood yjnjtxus66 mm[Hg]Campbell Wills MD Work Phone: [facility]06-13-2022 09:31-0400Heart rate77 /min Campbell Wills MD Work Phone: [facility]06-13-2022 09:31-0400Respiratory rate 16 /minCampbell Wills MD Work Phone: [facility]06-13-2022 09:31-5593AtG7% (BldA) [Mass fraction]100 %Campbell Wills MD Work Phone: [facility]06-13-2022 09:31-0400Systolic blood mm[Hg]Campbell Wills MD Work Phone: [facility]11-23-2021 13:45-0500Body vlokxx194.45 cmLawdusty Magana Other [facility] [employer] Other 11-23-2021 13:45-0500Body mass index (BMI) [Ratio]19.6 kg/o3Azfsberadyan Magana Other [employer] Other 11-23-2021 13:45-0500Body iipprv44.61 kgLawrdyan Magana Other [employer] Other Encounters Encounter DateEncounter TypeCare ProviderFacilityStart: 03-01-2025 End: 96-47-2694uikwsezbvpDdnsskgwm L LyFacility:[facility] Centertart: 42-35-0281Dhm-patient / Non-visitCatherine L Ly DO-[facility] Work Phone: Start: 02-21-2025 End: 90-14-8967Twejrw flowsheetJr. Palma Bobby DO Work Phone: no [facility]icsStart: 02-21-2025 End: 48-15-2608Nejlxt flowsheetJr. Palma Bobby DO Work Phone: no [facility]opaedicsStart: 02-21-2025 End: 49-02-1351Tghfto outpatient visit 25 minutesJr. Palma Bobby DO Work Phone: noms Dmitriy OrthopaedicsComment on above:Prepatellar bursitis of left knee (Primary Dx); Acute pain of left kneeStart: 02-21-2025 End: 48-37-3460gphoccxxpnHNPALMA DAMON AvailableStart: 01-25-2025 End: 21-90-7612cnaywvfhueKkogrgtu Ball DO Work Phone: [facility] Work Phone: Start: 01-25-2025 End: 11-21-9273Ublteyr encounter procedurePaulo Harris [facility] Work Phone: Start: 01-25-2025 End: 46-87-0885Ctdkeef encounter statusmeme Harris [facility] Hospitaltart: 12-11-2024 End: 73-08-3676Txqsquc encounter statusEvermacjermaine Reed DO Work Phone: noms HealthcareStart: 12-11-2024 End: 91-30-6357Kbmpxbyt preventive med est patient 40-64yrsWillimicki Reed DO Work Phone: [facility] OBComment on above:Encounter for gynecological examination without abnormal finding (Primary Dx); Screening for malignant neoplasm of cervix; History of breast cancerStart: 12-11-2024 End: 24-63-8208gfotifowweMEUPYRY D BRUNERNot AvailableStart: 11-06-2024 End: 65-92-0659Ywiqsb Velma AVILA Work Phone: [facility] ORTHOStart: 11-06-2024 End: 31-87-3897Nepgzo flowsRemigio AVILA Work Phone: [facility] ORTHOStart: 11-06-2024 End: 59-80-2919Mnxitn outpatient visit 25 minutesMattchip AVILA Work Phone: [facility] ORTHOComment on above:Arthralgia of right acromioclavicular joint (Primary Dx); Right shoulder pain, unspecified chronicity; Shoulder impingement, rightStart: 11-06-2024 End: 15-37-6498goknnqwjadLIMDZWI J MEYERNot AvailableStart: 07-03-2024 End: 40-17-6077Tvhvdol encounter procedureGodwinvalentina Harris DO Work Phone: [facility] [place] Work Phone: Start: 07-03-2024 End: 43-67-4579qethjnrggqVxxvphlj Ball DO Work Phone: [facility] Work Phone: Start: 05-18-2024 End: 82-66-1296Oaiadhezx encounterNatjacinto Springer RNHematology/OncologyComment on above:Bone desity reportStart: 05-12-2024 End: 07-43-0302Ipmsanv encounter procedureGodwinvalentina Harris DO Work Phone: [facility] Work Phone: Start: 05-12-2024 End: 27-11-6406lpvxqsoylmNymgu MurphyFacility:[facility] Start: 01-17-2024 End: 53-01-7660Qrsfbcq encounter Giles Wills MD Work Phone: Hematology/OncologyStart: 01-17-2024 End: 49-51-2843ichtmwnulvGzuqv R Murphy MD Work Phone: Hematology/OncologyComment on above:Malignant neoplasm of upper-outer quadrant of right breast in female, estrogen receptor positive (HCC) (Primary Dx); Encounter for osteoporosis screening in asymptomatic postmenopausal patient Start: 01-11-2024 End: 02-98-2575wtubzzkctcEkrmjzdetMarymount Hospital Work Phone: Start: 01-11-2024 End: 45-46-2968Uudebpjxf for general adult medical examination without abnormal findingsWexner Medical Centertart: 01-11-2024 End: 19-83-5249Blafceg encounter procedureSelect [facility] Work Phone: Start: 06-15-2023 End: 78-36-9923hwkwlflqohTyxnvzdf Ball Other [employer] Other Start: 77-45-3981Vhgrll outpatient visit 15 minutes Paulo BallFPG [facility] Medical ClinicStart: 05-10-2023 End: 01-84-2822gilsumkqjuCduufxkx Ball Other [employer] Other Start: 98-36-6089Igmiidcmf encounterBenjamin BallFPG [facility] Medical ClinicStart: 05-07-2023 End: 53-46-1433bzgswoaadxLS Paulo Harris Work Phone: [facility] Work Phone: Start: 05-07-2023 End: 31-38-8598Xkxsllf encounter procedureDO Paulo Harris Work Phone: [facility] [place] Work Phone: Start: 05-05-2023 End: 30-60-5502jhygbzdjanZwrumomj Ball Other [employer] Other Start: 73-19-6719Rshzhp outpatient visit 15 minutes Paulo BallFPG [facility] Medical ClinicStart: 04-29-2023 End: 99-09-4771fhurwaqvblKjceeccr Ball Other [employer] Other Start: 53-02-2543Guvsdjb evaluation of patient and reportBenjamin BallFPG [facility] Medical ClinicStart: 04-21-2023 End: 12-49-7681gruziwmhkeHtxalapb Ball Other [employer] Other Start: 62-00-9922Tgjskl outpatient visit 15 minutes Paulo BallFPG [facility] Medical ClinicStart: 23-13-7990Fhfxaepns encounterBenjamin BallFPG [facility] Medical ClinicStart: 03-11-2023 End: 80-86-4151bcgelmwmfjAmpjuovo Ball Other [employer] Other Start: 36-58-8409Ubwbrrzfa encounterBenjamin BallFPG [facility] Medical ClinicStart: 02-23-2023 End: 11-58-1741bxfwtycaleEebeluew Ball Other [employer] Other Start: 76-50-6322Fgbnyjwnw encounterBenjamin BallFPG [facility] Medical ClinicStart: 01-08-2023 End: 74-21-4847dsjlombnfrBxivooma Ball Other [employer] Other Start: 05-91-8615Tvdsiabqp encounterBenjamin BallFPG [facility] Medical ClinicStart: 01-07-2023 End: 68-27-0427iiorfvyvayKrotpwun Ball Other [facility] [employer] Other Start: 63-27-1093Ccyhsarri for general adult medical examination without abnormal findingsBenjamin BallFPG [facility] Medical ClinicStart: 60-10-3638Vwsudbwb preventive med est patient 40-64yrsBenjamin BallFPG [facility] Medical ClinicStart: 08-04-2022 End: 96-93-4783wzlbfapthrPsghpwmn Ball Other [employer] Other Start: 76-16-2040Tlwxtuhsh encounterBenjamin BallFPG [facility] Medical ClinicStart: 05-04-2022 End: 47-19-2234lvapxcmatiYM Paulo Ball Work Phone: [facility] Work Phone: Start: 05-04-2022 End: 37-29-6967Hwncyex encounter procedureDO Paulo Ball Work Phone: [facility] CampusStart: 04-13-2022 End: 63-43-4629ifvimbhtrrZvvdrsvm Izzy Other [employer] Other Start: 23-48-2190Yjzfnw outpatient visit 15 minutes Rafi David GastroenterologyStart: 01-15-2022 End: 31-07-1068vlefqsmvjuUX PAULO HARRISFacility:J1Zrcso: 11-10-2021 End: 82-06-3102hwiefgapicPvels R Murphy MD Work Phone: Hematology/OncologyComment on above:Malignant neoplasm of upper-outer quadrant of right breast in female, estrogen receptor positive (HCC) (Primary Dx); Ductal carcinoma in situ (DCIS) of left breastStart: 11-10-2021 End: 10-53-8637Ylnqmcf encounter procedureCampbell Wills MD Work Phone: SANDUSKYStart: 89-09-7280Utucslnrg for general adult medical examination without abnormal findingsDR PAULO HARRISOhioHealth Grove City Methodist Hospitaltart: 10-03-2021 End: 45-47-6694zbdqnhusuxJL PAULO KIMBERLYFacility:X7Logdt: 10-03-2021 End: 26-47-3589Juvvgqbqu for general adult medical examination without abnormal findingsDR PAULO HARRISFacility:I9Dwitf: 23-23-2654Hdsbf health examination Paulo Harris Other [employer] Other Start: 07-28-2021 End: 00-59-5753jotvmguiewLS PAULO HARRISFacility:C9Yfqxl: 2021 End: 28-89-0759tevlpqsiumHI Tessie MAGANAFacility:W6Scdib: 05-08-2021 End: 89-85-9532iivxwtzqjmJhywtqxc McCorm[employer] Other [employer] Other Start: 97-66-8731Xwxbkibtg encounterLasanti CRUZ GastroenterologyStart: 04-22-2021 End: 47-14-7837fhxpxbkvzvWvakwxgf [employer] Other [employer] Other Start: 39-26-3244Rtkywg outpatient visit 15 minutes Rafi MaganaANTHONY GastroenterologyStart: 04-18-2021 End: 25-75-7399tzpgehazanLB PAULO HARRISFacility:L1Hkhtf: 04-08-2021 End: 02-36-5247hhcngflfefBZ PAULO HARRISFacility:J8Dpage: 09-16-2018 End: 27-54-9871Cvriuxs encounter procedureDEFAULT PHYSICIANFacility:[facility] Procedures DateProcedureProcedure DetailPerforming ClinicianStart: 21-78-5181Koxouwaifowvgi aspir&/inj major jt/bursa w/o usMasukhdeep AVILA Work Phone: Start: 53-13-7503Fwdje shoulder complete minimum 2 viewsMasukhdeep AVILA Work Phone: Start: 00-34-3997SXC of bilateral breasts with contrastBenjamin Ball DO Work Phone: Start: 15-78-0494Xowh energy X-ray absorptiometry Paulo Ball DO Work Phone: Start: 93-67-9425Mvftmsfkvhx observation [Identifier] in Cervix by Cyto stainRishi AVILA Work Phone: Start: 19-73-6340MMN of bilateral breasts with contrastDO Paulo Ball Work Phone: Start: 52-31-4196XUX of bilateral breasts with contrastDO Paulo Ball Work Phone: Start: 72-61-0004Myphl depression screening assessment Campbell Wills MD Work Phone: Start: 25-52-3560Cxyxoejdk for malignant neoplasm of colonBenjamin Ball Other Plan of Treatment DateCare ActivityDetailAuthorStart: 83-40-6818Edtfwfxkc for malignant neoplasm of cervixNOMS HealthcareStart: 99-31-0631Vzvoxwedn for malignant neoplasm of cervixNOMS HealthcareStart: 27-10-0393Yqsvidyzm for malignant neoplasm of cervix Pap SmearNOMS HealthcareStart: 12-14-2025 End: 93-13-0638Fkoykpl encounter procedureNOMS SWS OBStart: 07-24-2025 End: 44-20-5699LZ Chest WO and W contrast IVMR chest w and wo contrast Imaging Routine History of breast cancer Expected: 07/24/2025, Expires: 12/11/2025NOMS HealthcareComment on above:Expected: 07/24/2025, Expires: 12/11/2025Start: 03-27-2025 End: 35-53-5841Nqkfxqd encounter orgumjrdv46/28/2025 9:45 AM EDT Office Visit [facility] [address] [place] [phone] Jr. Palma Bobby, DO [address] [facility] [address] [place] [address] NOMJosette Olivast OrthopaedicsStart: 03-01-2025 [facility]25 End: 04-54-5678Gqyheyc encounter zvdipexsu37/24/2025 9:45 AM EDT Office Visit [facility] [address] [phone] Jr. Palma Bobby, DO [address] [facility] [address] [place] [address] Acute pain of left kneeNOMS Dmitriy OrthopaedicsComment on above:Acute pain of left kneeStart: 01-29-2025 Influenza vaccinationInfluenza Vaccine (#1)NOMS HealthcareStart: 01-25-2025 [facility] Work Phone: Start: 12-11-2024 End: 50-83-9093Wphcusc encounter procedureNOMS SWS OBStart: 11-06-2024 End: 22-82-4580Xytbssp encounter gnigfvzju63/09/2025 9:30 AM EDT Office Visit [facility] [address] [place] [phone] Rishi Rubio PA [address] [facility] [address] [place] [address] Right shoulder pain, unspecified chronicityNOMS SWS ORTHOComment on above:Right shoulder pain, unspecified chronicityStart: 00-98-7687Loeag-19 Vaccine ( season)Covid-19 Vaccine ( season)[facility]: 44-84-0744Hurbcedkg vaccinationInfluenza Vaccine (#1)[facility]: 30-44-3727BQXJMFHX SCREENDIABETES SCREENGreen Cross Hospitaltart: 95-44-5556Zztlgucy ScreeningDiabetes ScreeningMarymount Hospital Start: 47-89-8360Jtayc-19 Vaccine ( season)Covid-19 Vaccine ( season)[facility]: 96-92-5228Wspno depression screening assessmentDEPRESSION SCREENINGGreen Cross Hospitaltart: 74-30-2831ROHPH-19 VACCINE (4 - Booster for Pfizer series)COVID-19 VACCINE (4 - Booster for Pfizer series) [facility]: 93-63-7681Cmyhtlrtlrgk Vaccine: 50+ (1 of 1 - PCV) Pneumococcal Vaccine: 50+ (1 of 1 - PCV)[facility]: 82-65-8659Rdhpi microalbumin profileDTaP,Tdap,Td Vaccine (1 - Tdap)[facility]: 13-64-1007EGFGJTBLS (FIT-DNA)COLOGUARD (FIT-DNA)[facility]: 57-97-2409TjekzaexpumGJDEYXEDKYCMjzzekmxr ClinicStart: 93-04-8844DBHULRCNJR CANCER SCREENINGCOLORECTAL CANCER SCREENINGGreen Cross Hospitaltart: 75-37-4261QY COLONOGRAPHYCT COLONOGRAPHYGreen Cross Hospitaltart: 38-92-8185ZHBMV OCCULT BLOOD FECAL OCCULT BLOODGreen Cross Hospitaltart: 22-67-7561Yhyor panelLipid Screening [facility]: 88-74-2941FBXFE SCREENLIPID SCREENGreen Cross Hospitaltart: 44-38-1901Usndzzzwc for malignant neoplasm of colonGreen Cross Hospitaltart: 97-22-4982ERNOJDXDBEYWPBRESNKSEQAAKMRmtuldpeb ClinicStart: 83-77-6470Hisosrbmdeu MAMMOGRAMGreen Cross Hospitaltart: 19-29-9250Hlfwlfwqc for malignant neoplasm of breastGreen Cross Hospitaltart: 21-47-8710XET TESTINGHPV TESTINGMarymount Hospital Start: 48-80-9208YXY TESTINGPAP TESTINGGreen Cross Hospitaltart: 1986 Screening for malignant neoplasm of cervixCervical Cancer ScreeningGreen Cross Hospitaltart: 91-72-2862Srpyxqitp B Vaccine (1 of 3 - 19+ 3-dose series)Hepatitis B Vaccine (1 of 3 - 19+ 3-dose series)[facility]: 69-60-7770Jgcbz microalbumin profileDTAP,TDAP,TD (1 - Tdap)[facility]: 1983 Anxiety ScreeningAnxiety ScreeningGreen Cross Hospitaltart: 94-41-8614Amktfqcjpi ScreeningDepression ScreeningGreen Cross Hospitaltart: 04-07-5903SNUFJWUBI C SCREENINGHEPATITIS C SCREENINGGreen Cross Hospitaltart: 90-21-8977Kqcywwcmy C screeningHepatitis C ScreeningGreen Cross Hospitaltart: 10-08-0055YTG SCREENINGHIV SCREENINGGreen Cross Hospitaltart: 47-09-3564ALC screeningHIV ScreeningGreen Cross Hospitaltart: 72-31-0746PDAMHNZPJBXV (1 - PCV)PNEUMOCOCCAL (1 - PCV)[facility]: 84-39-4426Jecrazwpm for malignant neoplasm of colonNOMS [facility] metabolic 2000 panel - Serum [facility] 1999 panel - Serum or [facility] End: 46-33-0464Uojzacjevh mammography computer-aided detcj biMAM DIAGNOSTIC BILAT Radiology Routine Malignant neoplasm of upper-outer quadrant of right breast in female, estrogen receptor positive (HCC) 1 Occurrences starting 11/10/2021 until 12/10/2022[facility] Work Phone: Comment on above:1 Occurrences starting 11/10/2021 until 12/10/2022 End: 61-78-1720SEE Skeletal system.axial Views for bone densityDXA-AXIAL SKELETON Radiology Routine Encounter for osteoporosis screening in asymptomatic postmenopausal patient 1 Occurrences starting 01/17/2024 until 02/15/2025 [facility] Work Phone: Comment on above:1 Occurrences starting 01/17/2024 until 02/15/2025IGP, APT HPV,RFX 16/18,45IGP, APT HPV,RFX 16/18,45 Lab Routine Screening for malignant neoplasm of cervix Ordered: 12/11/2024[facility] [employer] Work Phone: comment on above:Ordered: 12/11/2024 End: 69-65-3192PJ Breast - bilateral WO and W contrast IVMRI BREAST WO/W IVCON BILATERAL Radiology Routine Encounter for osteoporosis screening in asymptomatic postmenopausal patient Malignant neoplasm of upper-outer quadrant of right breast in female, estrogen receptor positive (HCC) 1 Occurrences starting 01/17/2024 until 5[facility]Comment [facility]:1 Occurrences starting 01/17/2024 until 02/15/2025 End: 84-66-0452GSW BREAST 3D POST PROCESSINGMRI BREAST 3D POST PROCESSING Radiology Routine Encounter for osteoporosis screening in asymptomatic postmenopausal patient Malignant neoplasm of upper-outer quadrant of right breast in female, estrogen receptor positive (HCC) 1 Occurrences starting 01/17/2024 until 5[facility] ClinicComment on above:1 Occurrences starting 01/17/2024 until 02/15/2025 End: 66-83-1068Mkn breast without&with contrast w/cad bilateralMRI BREAST WO/W IVCON BILAT Radiology Routine Malignant neoplasm of upper-outer quadrant of right breast in female, estrogen receptor positive (HCC) 1 Occurrences starting 11/10/2021 until 3[facility] Work Phone: Comment on above:1 Occurrences starting 11/10/2021 until 3[facility] EducationSelect [facility] Diverticulosis Discharge Instructions [facility] Hemorrhoids Discharge Instructions [facility] Work Phone: [facility] referralA[facility]tr Work Phone: XR Knee - left 1 or 2 ViewsXR knee 1 or 2 views left Imaging Routine Acute pain of left knee 02/21/2025 9:38 AM [facility] Healthcare Work Phone: [facility] Immunizations Immunization DateImmunizationNotesCare XugziackDrymcbvd28-00-8524iwpggjmch, seasonal, injectable, preservative freeWilliam Brianna DO Work Phone: [facility] HospitalIazcsqphpy37-00-1907atysmsqgw virus vaccine, unspecified formulationWilliam Brianna DO Work Phone: [facility] HospitalXgyaqnvcuf16-25-1729infeveslh, injectable, quadrivalent, preservative freeMatthew Ramiro PA Work Phone: [facility] HospitalTtsvjnwfhl72-86-3171ascgfqefc virus vaccine, unspecified formulationCampbell Wills MD Work Phone: [facility] HospitalIxitcu47-16-5732LKOUW-58 Pfizer (Pediatric) Paulo Harris Other [facility]10-10-2022influenza, injectable, quadrivalent, preservative freeMatthew Ramiro PA Work Phone: [facility] HospitalHuvwtghglg63-60-2855XMXYS-49 mRNA, Comirnaty (Pfizer)DO Paulo Harris Work Phone: [facility]10-10-2021influenza virus vaccine, split virus (incl. purified surface antigen)Paulo Harris Other [employer] Other [id number] virus vaccine, unspecified formulationL[facility]10-10-2021influenza, injectable, quadrivalent, preservative freeMattkyleew Ramiro AVILA Work Phone: [facility] HospitalWzrxrfsywk13-86-4058MYFVZ-73 vaccine, age 12+ yr (PFIZER-BIONTECH - PURPLE [facility])Campbell Wills MD Work Phone: [facility] HospitalFpomil65-52-2909BALJR-78 vaccine, age 12+ yr (PFIZER-BIONTECH - PURPLE TOP)Campbell Wills MD Work Phone: [facility] HospitalGficek10-94-6449jdjnxuupf virus vaccine, split virus (incl. purified surface antigen)Paulo Harris Other [facility] [employer] Other 247769-33-4828zmmxkvidw virus vaccine, unspecified formulationL[facility]10-09-2020influenza, injectable, quadrivalent, preservative Dorothea Wills MD Work Phone: [facility] HospitalRmvtge33-01-8435niimstvuj, injectable, quadrivalent, preservative freeMatthew Rubio PA Work Phone: [facility] HospitalByrdkrsnbp96-54-0963ioxrja vaccine recombinant Campbell Wills MD Work Phone: [facility] HospitalEcnlxl52-61-8096fugtkj vaccine, liveBenpamela Kimberly Other [facility]12-04-2019zoster vaccine Srinivas Wills MD Work Phone: [facility] HospitalJynnnl02-04-9882rkmalvgtz, injectable, quadrivalent, preservative freeMatthew Rubio PA Work Phone: [facility] HospitalXdfawrcsfp31-46-8728ubpfwrant, injectable, quadrivalent, preservative Dorothea Wills MD Work Phone: [facility] HospitalLqggiz76-99-6268jtveewmpf, injectable, quadrivalent, preservative Dorothea Wills MD Work Phone: [facility] HospitalXlchjj47-18-5308xzkajkjgm, seasonal, injectable, preservative Dorothea Wills MD Work Phone: [facility] HospitalNkjrzv70-39-0614pjtsqhbn influenza, intradermal, preservative Dorothea Wills MD Work Phone: [facility] HospitalDxoczf22-45-1390asjxztced, high dose seasonal, preservative-freeMatthew Rubio PA Work Phone: [facility] HospitalPqldnuzjws96-56-6908feckgtvnz virus vaccine, split virus (incl. purified surface antigen)Paulo Harris Other [place] [employer] Other [id number] virus vaccine, unspecified formulationL[facility]09-25-2017influenza, injectable, quadrivalent, preservative Dorothea Wills MD Work Phone: [facility] HospitalSpneew22-41-8202orzujbrpn virus vaccine, split virus (incl. purified surface antigen)Paulo Harris Other [facility] [employer] Other [id number] virus vaccine, unspecified formulationLake [facility]09-08-2016influenza, injectable, quadrivalent, preservative Dorothea Wills MD Work Phone: [facility] HospitalHzrcgp11-21-5204zkkjajpsr, injectable, quadrivalent, preservative freeRishi AVILA Work Phone: [facility] HospitalOhpektvchp94-67-1505davucnfr influenza, intradermal, preservative Dorothea Wills MD Work Phone: [facility] HospitalBbwweo77-27-9939jxvfiezqi, injectable, quadrivalent, preservative Dorothea Wills MD Work Phone: [facility] HospitalJuibge27-30-0264vvtcszbzy virus vaccine, split virus (incl. purified surface antigen)Campbell Wills MD Work Phone: [facility] HospitalHuejjm08-21-6996rjfiuff and diphtheria toxoids, adsorbed, preservative free, for adult use (5 Lf of tetanus toxoid and 2 Lf of diphtheria toxoid)Paulo Harris Other [facility]10-20-2013tetanus and diphtheria toxoids, adsorbed, preservative free, for adult use (5 Lf of tetanus toxoid and 2 Lf of diphtheria toxoid)Paulo Harris Other [facility]10-21-2008influenza, seasonal, injectable, preservative Dorothea Wills MD Work Phone: [facility] HospitalGvymmy61-22-4621yfptafryqvenus white injectableBrian Murphy MD Work Phone: [facility] Payers DatePayer CategoryPayerPolicy [id number] [facility] Member Subscriber Plan / Payer (Effective 2022-Present) Name: Eulalia Little Relation to Subscriber: Spouse Name: ANABEL AGEECHARLIE Date of : 1962 (Home) Address: [address] [place] [phone] Payer ID: Not on file Type: Not on file Address: [address] [place] [id number] 35-74-4785YaojldlQCDSJD BLUE ACCESS PPO [id number] 2020-Present [phone] [address] [place] [address] [id number] 1..840.799225.1.13.159.2.7.3.958[id number] 2..1.352740.3.57[id number] 2..1.042938.3.579.[id number] 2.0.1.728960.3.579.2.21759-26-0615Midcwem7979617 2.0.1.668533.3.57[id number] 2.16.840.1.975063.3.579.2.68066-63-6327Xvrahlw2069807 2..0.1.747112.3.579.[id number] 2.16.840.1.266241.3.579.[id number] 2..0.1.188065.3.579.2.9[id number] 2..0.1.298609.3.579.2.5[id number] 2.0.1.523544.3.579.[id number] 2.0.1.360429.3.579.[id number] 2..1.615803.3.579.2.177071-82-8830BkbwUnm Children'S [id number] 2..1.663036.19Private Health InsuranceAet Insurance [id number] Health InsuranceThe [facility] [id number] BC/BS [facility] [id number] 2.0.1.2[id number] 2.840.1.510351.3.579.2.531 [id number] 2.840.1.763141.3.579.2.531 Social History DateTypeDetailFacilityStart: 09-16-2012 End: 84-61-8799Qdmopod smoking status NHISNever smoked tobaccoMarymount Hospital Start: 09-16-2012 End: 89-49-3540Scvogfc use and exposureSmokeless tobacco non-userGreen Cross Hospitaltart: 11-10-2021 End: 29-73-3889Xuqoscs intakeCurrent non-drinker of alcohol (finding)[facility]: 17-47-3482Piy Assigned At BirthFehudson valley hospitaleCselect medical specialty [facility] ClinicStart: 10-31-2021 End: 22-54-7319Pspyoizo to SARS-CoV-2 (event)Not sureGreen Cross Hospitaltart: 01-17-2024 End: 11-07-8731Hno Assigned At BirthGreen Cross Hospitaltart: 01-17-2024 End: 76-63-2603Cidddoe of Social functionMarymount HospitalAdult Depression Screening Fneljhtcqs6Otswketjx ClinicStart: 28-02-9496Icwrqq identityIdentifies as female gender (finding)[facility]: 37-64-3667Wramag orientation Heterosexual (finding)[facility]: 26-71-4558AvcMbwjwf (finding) [facility] 12-06-2023 End: 15-58-9360Bxitqrnce beverage intakeCurrent drinker of alcohol (finding)NOM HealthcareHow often to you have a drink containing alcohol?Monthly or lessNOMS HealthcareHow many standard drinks containing alcohol do you have on a typical day?1 or 2NOMS HealthcareHow often do you have 6 or more drinks on 1 occasion? NeverNOTN HealthcareStart: 40-10-9198Ephvhkv CommentSocial drinkerNOLakeland Regional Hospital Functional Status GcyyBplmsyfizdAkvhhdRyyffcpc08-40-8721Vtypc score [AUDIT-C]1 12/11/2024 9:56 AM EDT Valerie Doan MANOMS Hfrpckqcyc57-85-6194Pgsoaum Health Questionnaire 2 item (PHQ-2) [Reported][facility] Clinical Notes 04-22-2021 to 02-21-2025 Note Date & FpyxPkalAcwgbkud34-55-5939 History of Present illness Narrative* Jr. Palma Bobby DO - 02/21/2025 9:45 AM EDT Images from the original note were not included. HISTORY OF PRESENT ILLNESS: EST PT Eulalia Little is an 59 y.o. @ female. (EST PT) (NEW PROBLEM) - INCREASING (L) KNEE DISCOMFORT ~2-3 MONTHS (11/2024) ; NKI XRAY TODAY, 02/21/25 [facility] NO MRI NO MDP / PREDNISONE HX CORTISONE INJ NO CORTISONE INJ NO PT INTERMITTENT ANTERIOR PATELLAR DISCOMFORT - DENIES RADIATION - WORSE WITH INCREASED ACTIVITY. DENIES SWELLING. DENIES STIFFNESS. DENIES WEAKNESS. DENIES POPPING. ADMITS CREAKING WITH STEPS. DENIES GRINDING. DENIES BUCKLING. INTERMITTENTLY WAKING HS / DIFFICULTY GETTING COMFORTABLE. ADVIL PRN. DENIES ICING / HEATING / ELEVATION. DENIES TOPICALS. HX (R) KNEE SCOPE W/ PLICA 08/06/23 - DR. BOBBY ALLERGIES: No Known Allergies HOME MEDICATIONS: Current Outpatient Medications Medication Instructions amoxicillin (Amoxil) 500 MG capsule TAKE 4 CAPSULES BY MOUTH ONE HOUR PRIOR TO PROCEDURE Cholecalciferol (VITAMIN D-3 PO) Vitamin D3 Cyanocobalamin (VITAMIN B-12 PO) Vitamin B12 methylPREDNISolone (Medrol Dospak) 4 MG tablets Follow schedule on package instructions Multiple Vitamins-Minerals (MULTIVITAMIN ADULTS PO) Multivitamin Synthroid 88 mcg PHYSICAL EXAM: Knee Musculoskeletal Exam Inspection Right Erythema: none Effusion: mild Edema: none Deformity: none Alignment: normal Palpation Right Increased warmth: none Masses: none Crepitus: none Tenderness: present Patella: moderate Patella comment: to The prepatellar bursa. Range of Motion Right Right knee range of motion is normal. Strength Right Right knee strength is normal. Instability Right Instability signs: none - stable Neurovascular Right Right knee neurovascular exam is normal. Special Signs Right Straight leg raise: normal J sign: moderate Patellar compression: moderate Patellar apprehension: moderate Patellar glide lateral: 3 General Constitutional: appears stated age Scleral icterus: no Labored breathing: no Psychiatric: normal mood and affect Neurological: oriented x3 Skin: intact Lymphadenopathy: none Vitals: There is no height or weight on file to calculate BMI. Tobacco Use: Low Risk (02/21/2025) Patient History Smoking Tobacco Use: Never Smokeless Tobacco Use: Never Passive Exposure: Not on file Alcohol Use: Not At Risk (12/11/2024) AUDIT-C Frequency of Alcohol Consumption: Monthly or less Average Number of Drinks: 1 or 2 Frequency of Binge Drinking: Never IMAGING: Procedures Orders Placed This Encounter Procedures XR knee 1 or 2 views left Views: AP Views: Lateral Reason for exam:: Pain Is the patient ?: No ASSESSMENT: ICD-10-CM 1. Prepatellar bursitis of left knee M70.42 methylPREDNISolone (Medrol Dospak) 4 MG tablets 2. Acute pain of left knee M25.562 XR knee 1 or 2 views left PLAN: We have discussed her symptoms, today's x-rays and physical exam. I feel she has bursitis prepatellar in her left knee we have recommended a Medrol Dosepak. We have discussed restrictions and home exercise program. We'll see her back in 1 month. First if her symptoms persist or worsen we may recommend physical therapy and/or MRI. Questions answered in laymen terms at the bedside. The diagnosis, home exercise plan and any ongoing restrictions/ recommendations reviewed. If unable to be reached in office, I recommend evaluation at nearest Emergency Room if any symptoms worsened or new symptoms develop for requiring urgent evaluation. documented in this encounterColumbia Regional HospitalJvcqarirqe07-74-3467 Evaluation note* Diagnosis Onset Date Resolution Status Admit Date Encounter for screening colonoscopy acuteAugust 2024 9:16amGERD (gastroesophageal reflux disease)acuteAugust 2024 9:16amH/O malignant neoplasm of breastacuteAugust 2024 9:16am HypothyroidismacuteAugust 2024 9:16amIrritable bowel syndrome with constipationApril 2018acuteAugust 2024 9:16amOsteopeniaacuteAugust 2024 9:16amWellness examinationnoneactiveAugust 2024 9:16am [facility] Work Phone: 1(359) 269-208307-14-2025 History of Present illness Narrative* Pta Pinon MA - 12/11/2024 10:00 AM EDT Images from the original note were not included. Aquiles Reed DO Obstetrics and Gynecology Eulalia Little 1965 12/11/24 [id number] Yearly Wellness Exam Chief Complaint Patient presents with Gynecologic Exam LMP: 2017 HRT: None Last pap 12-06-23 neg. Last breast MRI 07/03/24 [facility]. Denies breast, urinary, or bowel concerns. [...] 2012 EGD 05/2016 w/ biopsy ENDOMETRIAL CRYOABLATION 1993 KNEE ARTHROSCOPY W/ MENISCECTOMY Right 08/06/2023 W/ PLISHAN ; DR BOBBY MASTECTOMY 2006 TEMPOROMANDIBULAR JOINT SURGERY TONSILLECTOMY WISDOM [...] costovertebral angle tenderness, no obvious scoliosis/kyphosis. 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 Aquiles Reed. Signature Pat Pinon MA Date 12/11/24 . Time 10:26 AM . The documentation recorded by the scribe accurately reflectsthe service(s) I personally performed and the decisions I made. Signature Kiran Reed D.O. Date 12/11/24 Time 5:00PM. documented in this encounterColumbia Regional HospitalTmqottmqqw00-84-1291 History of Present illness Narrative* AUSTIN Barajas - 11/06/2024 9:30 AM EDTAssociated Order(s): L Inj/Asp: R subacromial bursa Post-Procedure [...] (R) SHOULDER INJ ~20 YRS AGO (DR. BOBBY) ADMITS DIFFUSE DISCOMFORT - DENIES RADIATION. DENIES [...] given injection Right Shoulder SA space (Code 08234 RT) Procedure, treatment alternatives, risks and benefits [...] requiring urgent evaluation. Visit was preformed using [employer]-area relief pilot speech recognition. documented in this encounterColumbia Regional HospitalLmcqnvhmkm67-52-9623 Telephone encounter Note* Telephone Encounter - Mary Springer RN - 05/18/2024 11:08 AM EST MARYCHUY reviewed bone density report completed at [facility]. Pt to continue with calcium/vit D, as previously taking. Pt called and updated. She is agreeable to plan of care and denies any questions, needs or concernsat this time. Mary Springer RN [facility]12-19-2024 Miscellaneous Notes* Telephone Encounter - Mary Springer RN - 05/18/2024 11:08 AM EST MARYCHUY reviewed bone density report completed at [facility]. Pt to continue with calcium/vit D, as previously taking. Pt called and updated. She is agreeable to plan of care and denies any questions, needs or concernsat this time. Mary Springer RN documented in this encounterMarymount Hospital08-18-2024 NoteHNO ID: [id number] Author: CAMPBELL WILLS MD Service: ? Author Type: Physician Type: Progress Notes Filed: 01/19/2024 05:44 Note Text: PATIENT NAME: Eulalia Little DATE: 01/17/2024 PRIMARY CARE PHYSICIAN: Dr. Paulo Harris Portions of this encounter note have been [...] Normal. RADIOLOGIC DATA: 05/07/2023 Bilateral breast MRI ([facility]) No MRI evidence of malignancy. Routine follow-up is recommended in 1 year. 11/22/2018 Right breast and axillary ultrasound ([facility]) Redemonstration of 2 well-circumscribed elongated hypoechoic structures at 4:00, periareolar region, stable and benign nature. No mass or prominent lymphadenopathy at the right axillary region. LABORATORY DATA: Hemoglobin (g/dL) Date Value 11/08/2020 12.7 Hematocrit (%) Date Value 11/08/2020 38.1 WBC (k/uL) Date Value 11/08/2020 3.86 Platelet Count (k/uL) Date Value 11/08/2020 168 ASSESSMENT/PLAN: 1. 174.9 Breast cancer Stage I (T1,N0,M0) ER/NV pos, HER2 neg right breast cancer diagnosed March of 2007. The patient presented with an abnormal mammogram in February 2007 revealing microcalcifications in the left breast. 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 She sought a second opinion at the [facility]. A bilateral breast MRI was done which showed an occult tumor in the right breast which was biopsy proven to be stage I ER/NV positive low-grade ductal carcinoma. The patient underwent bilateral mastectomies with implant reconstruction. The patient subsequently received adjuvant hormonal therapy with Zoladex plus anastrozole x 5 years March 2007 through April 2012. She has had no signs of recurrence since and currently has no evidence of disease. Now that the patient is more than 16 years out (more content not included)... [address]18-2024 History of Present illness Narrative* Campbell Wills MD - 01/16/2024 7:38 AM EDT PATIENT NAME: Eulalia Little DATE: 01/17/2024 PRIMARY CARE PHYSICIAN: Dr. Paulo Harris Portions of this encounter note have been [...] Resp 18 Wt 58.1 kg (128 lb 1.4oz) LMP 08/29/2013 SpO2 100% BMI 20.68 kg/m [...] Normal. RADIOLOGIC DATA: 05/07/2023 Bilateral breast MRI ([facility]) No MRI evidence of malignancy. Routine follow-up is recommended in 1 year. 11/22/2018 Right breast and axillary ultrasound ([facility]) Redemonstration of 2 well-circumscribed elongated hypoechoic structures at 4:00, periareolar region, stable and benign nature. No mass or prominent lymphadenopathy at the right axillary region. LABORATORY DATA: Hemoglobin (g/dL) Date Value 11/08/2020 12.7 Hematocrit (%) Date Value 11/08/2020 38.1 WBC (k/uL) Date Value 11/08/2020 3.86 Platelet Count (k/uL) Date Value 11/08/2020 168 ASSESSMENT/PLAN: 1. 174.9 Breast cancer Stage I (T1,N0,M0) ER/NV pos, HER2 neg right breast cancer diagnosed March of 2007. The patient presented with an abnormal mammogram in February 2007 revealing microcalcifications in the left breast. 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 She sought a second opinion at [facility]. A bilateral breast MRI was done which showed an occult tumor in the right breast whichwas biopsy proven to be stage I ER/NV positive low-grade ductal carcinoma. The patient underwent [...] Stable on medications, will follow with PCP. Campbell Wills MD documented in [facility] encounter[facility] Evaluation [facility]* Encounter Date Diagnosis Assessment Notes Treatment Notes Treatment Clinical Notes May, Acute bronchitis due to other specified organisms (ICD-10 - J20.8) Instructed to use Robitussin or Mucinex for cough, saline or Flonase NS for congestion, Tylenol for pain and fever. Instructed to use Robitussin or Mucinex for cough, saline or Flonase NS for congestion, Tylenol for pain and fever. [email or web address] Other 12-06-2023 Evaluation note* Encounter Date Diagnosis Assessment Notes Treatment Notes Treatment Clinical Notes Apr, Acute bronchitis due to other specified organisms (ICD-10 - J20.8) Instructed to use Robitussin or Mucinex for cough, saline or Flonase NS for congestion, Tylenol for pain and fever. Instructed to use Robitussin or Mucinex for cough, saline or Flonase NS for congestion, Tylenol for pain and fever. [email or web address] Other 11-30-2023 Evaluation note* Encounter Date Diagnosis Assessment Notes Treatment Notes Treatment Clinical Notes Mar, Dysuria (ICD-10 - R30.0) [email or web address] Other 11-22-2023 Evaluation note* Encounter Date Diagnosis Assessment Notes Treatment Notes Treatment Clinical Notes Mar, Dysuria (ICD-10 - R30.0) Push fluids and finish antibiotics Drop off urine sample next week. Mar,Tongue coating (ICD-10 - K14.3)No isolated lesions on the tongue or buccal mucosa. No risk factors for oral cancer. Thin yellow coating down the center of her tongue Reassured, instructed to push water and brush tongue [email or web address] Other 10-12-2023 Evaluation note* Encounter Date Diagnosis Assessment Notes Treatment Notes Treatment Clinical Notes Feb, Autoimmune thyroiditis (ICD-10 - E06.3) [email or web address] Other 08-11-2023 Evaluation note* Encounter Date Diagnosis Assessment Notes Treatment Notes Treatment Clinical Notes Dec, Autoimmune thyroiditis (ICD-10 - E06.3) [email or web address] Other 08-10-2023 Evaluation note* Encounter Date Diagnosis Assessment Notes Treatment Notes Treatment Clinical Notes Dec, Wellness examination (ICD-10 - Z 00.00) Healthy diet and exercise. Reviewed age-appropriate preventive testing recommended. Dec,hondromalacia (ICD-10 - M94.20)Reviewed stretching exercises, ice/heat and avoid squatting/kneeling. Celebrex as needed Dec,astroesophageal reflux disease with esophagitis without hemorrhage (ICD-10 - K21.00)Diet instructions: Smaller portions, avoid eating and laying flat, avoid eating or drinking prior to bedtime. Weight loss. Occasional Pepcid Dec,utoimmune thyroiditis (ICD-10 - E06.3)Euthyroid, TSH yearly Dec,Other specified hypothyroidism (ICD-10 - E03.8) Dec,atellofemoral disorders, right knee (ICD-10 - M22.2X1)Instructed on cause and treatment - Celebrex as needed - ice - avoid squatting or kneeling Dec,atellofemoral disorders, left knee (ICD-10 - M22.2X2)Instructed on cause and treatment - Celebrex as needed - ice - avoid squatting or kneeling Dec,Hx of breast cancer (ICD-10 - Z85.3)No s/s recurrence. 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 Paulo Harris Portions of this encounter note have been [...] Normal. RADIOLOGIC DATA: 05/19/2021 Bilateral breast MRI ([facility]) Bilateral mastectomy with intact implant reconstruction. No suspicious MRI findings involving either breast. 11/22/2018 Right breast and axillary ultrasound ([facility]) Redemonstration of 2 well-circumscribed elongated hypoechoic structures at 4:00, periareolar region, stable and benign nature. No mass or prominent lymphadenopathy at the right axillary region. LABORATORY DATA: Hemoglobin (g/dL) Date Value 11/08/2020 12.7 Hematocrit (%) Date Value 11/08/2020 38.1 WBC (k/uL) Date Value 11/08/2020 3.86 Platelet Count (k/uL) Date Value 11/08/2020 168 ASSESSMENT/PLAN: 1. 174.9 Breast cancer Stage I (T1N0M0) ER/NV pos, HER2 neg right breast cancer diagnosed March of 2007. The patient presented with an abnormal mammogram in February 2007 revealing microcalcifications in the left breast. 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 She sought a second opinion at [facility]. A bilateral breast MRI was done which showed an occult tumor in the right breast whichwas biopsy proven to be stage I ER/NV positive low-grade ductal carcinoma. The patient underwent [...] Stable on medications, will follow with PCP. Campbell Wills MD documented in this encounterMary[facility] Hospital12-09-[facility]21 Evaluation note* Encounter Date Diagnosis Assessment Notes Treatment Notes Treatment Clinical Notes Apr, Dysphagia (ICD-10 - R13.10) Apr,pigastric pain (ICD-10 - R10.13) [email or web address] Other 11-23-2021 Evaluation note* Encounter Date Diagnosis Assessment Notes Treatment Notes Treatment Clinical Notes Mar, Epigastric pain (ICD-10 - R10.13 ) patient states discomfort. does not idania medication Mar,ysphagia (ICD-10 - R13.10) does notice this with big vitamins. does not notice with food or liquids, proceed with EGD at this time. Mar,Heartburn (ICD-10 - R12) does not take medication for this. [email or web address] Other Evaluation note* Diagnosis Malignant neoplasm of upper-outer quadrant of right breast in female, estrogen receptor positive (HCC)- Primary Ductal carcinoma in situ (DCIS) of left breast documented in this encounter [facility] HospitalEvaluation noteNo assessment information availableSelect Medical Specialty [facility] Work Phone: Evaluation noteNo InformationNort Localler Other Evaluation note* Diagnosis Onset Date Resolution Status GERD (gastroesophageal reflux disease) acuteH/O malignant neoplasm of breastacuteHypothyroidismacuteWellness examinationnoneactive [facility] Work Phone: Evaluation note* Diagnosis Malignant neoplasm of upper-outer quadrant of right breast in female, estrogen receptor positive (HCC)- Primary Encounter for osteoporosis screening in asymptomatic postmenopausal patient documented in this encounter [facility] note* Diagnosis Arthralgia of right acromioclavicular joint- Primary Right shoulder pain, unspecified chronicity Shoulder impingement, right documented in this encounter [facility]* Diagnosis Encounter for gynecological examination without abnormal finding- Primary Screening for malignant neoplasm of cervix Screening for malignant neoplasm of the cervix History of breast cancer Personal history of malignant neoplasm of breast documented in this encounter [facility] HealthcareEvaluation note* Diagnosis Onset Date Resolution Status Admit Date GERD (gastroesophageal reflux disease) acuteAugust 2024 9:16amH/O malignant neoplasm of breastacuteAugust 2024 9:16amHypothyroidismacuteAugust 2024 9:16amWellness examination noneactiveAugust 2024 9:16am [facility] Work Phone: Evaluation note* Diagnosis Prepatellar bursitis of left knee- Primary Acute pain of left knee documented in this encounter [facility] HealthcareHistory general Narrative - Reported* Type Description Date Medical History hypothyrodism Medical Historybreast cancerSurgical Historybilat [id number] History TMJ [id number] HistoryT&F2181Xioicqcztzcgshq HistorySEE ABOVE SURGERY Hospitalization HistoryCHILD X'S [email or web address] Other History general Narrative - Reported* Type Description Date Medical History hypothyrodism Medical Historybreast cancerSurgical Historybilat [id number] History TMJ [id number] HistoryT&Y4036Zusmwjaq YaygomcSnfohmbegjy6494 Hospitalization HistorySEE ABOVE SURGERYHospitalization HistoryCHILD X'S Hospitalization HistoryNO OVERNIGHT STAYS OR ER VISITS IN THE LAST YEAR10/19/22 [email or web address] Other Hospital Discharge instructions Additional Instructions DISCHARGE INSTRUCTIONS FOR COLONOSCOPY WHAT TO EXPECT: - You may feel full, gassy or cramping after your procedure. In some cases, this may be from a few hours to a day. Walking may help relieve the discomfort. - If you have polyp(s) removed you may note some minor bloody discharge after your first bowel movements. - You should begin to recover from anesthesia within 1 hour of the procedure, however may feel groggy for the next 24 hours. DO's AND DON'Ts: - Call your doctor right away if you have a hard abdomen, severe pain, are passing lots of bright red blood or clots. - Call your doctor if you develop any rashes, hives or difficulty breathing. - Let your doctor know if you have not had a bowel movement by 3 days after your procedure. - If you take 81 mg aspirin for your heart it is safe to resume this medication. - If you take other blood thinner medications your doctor will instruct you when these can safely be resumed. - Do NOT drive for 24 hours. - Do NOT operate machinery such as power tools, lawn mowers, snow blowers, sewing machines, etc. for 24 hours. - Avoid alcoholic beverages and drugs for allergies, nerves, or sleep. - Do NOT stay alone. Do NOT leave your child unattended. - Do NOT make important personal or business decisions or sign any legal documents. - Eat solid foods and drink liquids in smaller amounts than usual until normal appetite returns. If you should experience an upset stomach, liquids high in sugar content (soda, Steven-Aid, non-acid juices) are recommended. - You can resume normal activities tomorrow. FOLLOW UP & RECOMMENDATIONS: -Please call the office and make a follow up appointment to see me if symptoms persist -Notify the doctor if you have any problems. -Repeat colonoscopy in 7-10 years. -Follow up with PCP. -Office number [phone]. [facility] Work Phone: Reason for referral (narrative)* Diagnostic Procedure Only (Routine) - Pending ReviewSpecialtyDiagnoses / ProceduresReferred By ContactReferred To Contact IMAGING Diagnoses Malignant neoplasm of upper-outer quadrant of right breast in female, estrogen receptor positive (HCC) Procedures RADHA DIAGNOSTIC BILAT DIAGNOSTIC MAMMOGRAPHY COMPUTER-AIDED DETCJ BI Campbell Wills MD [address] [place] [address] [place] [address] [facility] [address] [place] [address] Referral IDStatusReasonStart DateExpiration DateVisits RequestedVisits [id number] Review Auto-Generated Referral * MRI/CT (Routine) - Pending ReviewSpecialtyDiagnoses / ProceduresReferred By ContactReferred To Contact IMAGING Diagnoses Malignant neoplasm of upper-outer quadrant of right breast in female, estrogen receptor positive (HCC) Procedures MRI BREAST WO/W IVCON BILAT MRI BREAST WITHOUT&WITH CONTRAST W/CAD BILATERAL Campbell Wills MD [address] [place] [address] [place] [address] [facility] Referral IDStatusReasonStart DateExpiration DateVisits RequestedVisits [id number] Review Auto-Generated Referral [facility] for referral (narrative)No reason for referral information availableMartins Ferry Hospital Work Phone: Summary Purpose Family History No Family History Records Found Relationship Condition Age at Onset Recorded Date/T jorge father Heart disease Unknown Relationship Condition Age at Onset Recorded Date/T jorge father Heart disease Unknown DeceasedUnknown Relationship Condition Age at Onset Recorded Date/T jorge father Heart disease Unknown DeceasedUnknownmotherHypothyroidismUnknown Advance Directives No Advanced Directives Records Found Advance Directive Response Recorded Date/ Time Advance Directives No September 10 1:40pm Advance Directive Response Recorded Date/ Time Advance Directives No September 10 2:40pm Chief Complaint and Reason for Visit Chief Complaint C51.411 Z17.0 Chief Complaint c50.411 z17.0 Chief Complaint wellness Reason for Visit GERD (gastroesophage al reflux disease) H/O malignant neoplasm of breast Hypothyroidism Wellness examination Chief Complaint Admit Date z13.820 z78.0 c50.411 z17.0 April 8:43am z13.820 z78.0 c50.411 z17.0 July 1:28pm Chief Complaint Admit Date Wellness January 25, 2025 9: 16am Reason for Visit Admit Date GERD (gastroesophageal reflux disease) A ug2024 9:16am H/O malignant neoplasm of breast January 25, 2025 9:16am Hypothyroidism January 25, 2025 9: 16am Wellness examination January 25, 2025 9 :16am Chief Complaint Admit Date Wellness January 25, 2025 9: 16am IBS W/CONSTIPATION, HX OF BREAST CANCER March 01, 2025 7:55am Reason for Visit Admit Date Encounter for screening colonoscopy Augu st 2024 9:16am GERD (gastroesophageal reflux disease) A ug2024 9:16am H/O malignant neoplasm of breast January 25, 2025 9:16am Hypothyroidism January 25, 2025 9: 16am Irritable bowel syndrome with constipati on January 25, 2025 9:16am Osteopenia January 25, 2025 9: 16am Wellness examination January 25, 2025 9 :16am Reason for Referral SpecialtyDiagnoses / ProceduresReferred By ContactReferred To ContactMR IMAGING Diagnoses Encounter for osteoporosis screening in asymptomatic postmenopausal patient 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 [place] [address] [place] [address] Referral IDStatusReasonSthaysi DateExpiration DateVisits RequestedVisits [id number] Request Auto-Generated Referral /[id number] / ProceduresReferred By ContactReferred To ContactXR IMAGING Diagnoses Encounter for osteoporosis screening in asymptomatic postmenopausal patient Procedures DXA-AXIAL SKELETON Campbell Wills MD [address] [place] [address] [place] [address] Referral IDStatusReasonSthaysi DateExpiration DateVisits RequestedVisits [id number] Request Auto-Generated Referral Additional Source Comments INFORMATION SOURCE (unrecogn ized section and content) DATE CREATED AUTHOR 09/17/2018 [facility] DATE CREATED AUTHOR AUTHOR'S ORGANIZ ATION 01/21/2022 [facility] DATE CREATED AUTHOR AUTHOR'S ORGANIZ ATION 05/21/2024 [facility] DATE CREATED AUTHOR AUTHOR'S ORGANIZ ATION 03/03/2025 [facility] DATE CREATED AUTHOR AUTHOR'S ORGANIZ ATION 03/08/2025 [facility] Source Comments (unrecognize d section and content) In the event this informatio n is protected by the Federal Confidentiality of Alcohol and Drug Abuse Patient Records regulations: The Federal rules restrict any use of the information to criminally investigate or prosecute any alcohol or drug abuse patient.[facility] HospitalIn the event this information is protected by the Federal Confidentiality of Alcohol and Drug Abuse Patient Records regulations: The Federal rules restrict any use of the information to criminally investigate or prosecute any alcohol or drug abuse patient.[facility] HospitalIn the event this information is protected by the Federal Confidentiality of Alcohol and Drug Abuse Patient Records regulations: The Federal rules restrict any use of the information to criminally investigate or prosecute any alcohol or drug abuse patient.[facility] Reason for Visit (unrecogniz ed section and content) ReasonCommentsBreast CancerReasonCommentsBone desity reportReasonCommentsPain ReasonCommentsGynecologic ExamLMP: 2018HRT: NoneLast pap 12-06-23 neg.Last breast MRI 07/03/24 [facility]. Denies breast, urinary, or bowelconcerns.Breast ProblemWonders if [facility] would continue to order breast MRI. Dr. Wills retired, last saw him 11/2023.ReasonCommentsPain Care Teams (unrecognized sec tion and content) Team Status: Active Member Role Status Dates Paulo Harris DO Primary Care Provider Active Team Status: Inactive Member Role Status Dates Paulo Harris DO Primary Care Provider Active Campbell Wills MDAttending ProviderActiveTeam MemberRelationshipSpecialtyStart DateEnd Date Paulo Harris DO PCP - [facility]08/25/11 Team Status: Inactive Member Role Status Dates Paulo Harris DO Primary Care Provide r, Attending Provider Active Start: January 11, 2024 End: January 11, 2024Team MemberRelationshipSpecialtyStart DateEnd Date Paulo Harris DO PCP - [facility]08/25/11Team MemberRelationshipSpecialtyStart Date End Date Paulo Harris DO PCP - [facility]08/25/11 Team Status: Inactive Member Role Status Dates Paulo Harris DO Primary Care Provider Active Start: May 12, 2024 End: May 12Alessandra Leos ProviderActiveStart: May 12, 2024 End: May 12, 2024 Team Status: Inactive Member Role Status Dates Paulo Harris DO Primary Care Provider Active Start: July 03, 2024 End: July 03Alessandra Leos ProviderActiveStart: July 03, 2024 End: July 03, 2024Team MemberRelationshipSpecialtyStart DateEnd Date Paulo Harris DO PCP - [facility]12/06/23Team MemberRelationshipSpecialtyStart Date End Date Paulo Harris DO PCP [facility]12/06/23Team MemberRelationshipSpecialtyStart Date End Date Paulo Harris DO PCP [facility]12/06/23 Team Status: Inactive Member Role Status Dates Paulo Harris DO Primary Care Provider Active Start: January 25, 2025 End: January 25sincere Harris DOAttannetta ProviderActiveStart: January 25, 2025 End: January 25, 2025Team MemberRelationshipSpecialtyStart DateEnd Date Paulo Harris DO [address] [place] [id number] PCP - GeneralInternal Medicine01/31/25Team MemberRelationshipSpecialtyStart Date End Date Paulo Harris DO [address] [place] [id number] PCP - GeneralInternal Medicine01/31/25 Team Status: Active Member Role Status Dates Paulo Harris Primary Care Provider Active Start: March 01, 2025 Beronica Saul , DOAttending ProviderActiveStart: March 01, 2025 Beronica Saul , DOOther ProviderActiveStart: March 01, 2025 Goals (unrecognized section and content) Goals may [...] BE BASED ON THE PRIMARY CLINICAL RECORDS. [employer] provides no warranty or guarantee of the accuracy or completeness of information in this document.
== END 2025-03-20 14:31 | disposition home or self-care (01) ==
LOC: SLEEP 03-21 08:59
PROVIDERS: PCP Internal Medicine; Visit Provider Internal Medicine
DX: G47.33 Obstructive sleep apnea (adult) (pediatric) (principal)
CPT/HCPCS: 95806